=== PATIENT | female | born 1955 | race Caucasian/White ===

== ENCOUNTER 2017-11-12 20:56 | Emergency (ER) | payer OTHER ==
[2017-11-13] MEDS: SOD CHLORIDE 0.9% 1,000 ML IV ×2 (02:04→04:01)
[2017-11-13] MEDS ORDERED: ONDANSETRON 4 MG INJ (02:05)
[2017-11-13] MEDS: PANTOPRAZOLE 40 MG INJ IV (02:07)
[2017-11-13] MEDS: ONDANSETRON INJ 8 MG in DEXTROSE 5% 50 ML IV (02:11)
[2017-11-13 02:36] LABS: ADD MAN DIFF? NO
[2017-11-13 02:38] LABS: ABNORMAL IP MESSAGE 1; BASOPHIL # 0.1 10^3/ul (0.0-0.1); BASOPHILS % 0.8 % (0.0-2.0); EOSINOPHILS # 0.1 10^3/ul (0.0-0.5); EOSINOPHILS % 0.9 % (0.0-7.0); HEMATOCRIT 33.2 % (37.0-47.0); HEMOGLOBIN 10.3 g/dl (12.0-16.0); LYMPHOCYTES # 2.2 10^3/ul (0.8-2.9); LYMPHOCYTES % 14.8 % (15.0-51.0); MEAN CORPUSCULAR HEMOGLOBIN 27.8 pg (29.0-33.0); MEAN CORPUSCULAR VOLUME 89.5 fl (82.0-101.0); MEAN PLATELET VOLUME 9.8 fl (7.4-10.4); MONOCYTE # 1.6 10^3/ul (0.3-0.9); MONOCYTES % 10.4 % (0.0-11.0); NEUTROPHIL # 9.7 10^3/ul (1.6-7.5); NEUTROPHILS % 65.2 % (39.0-77.0); PLATELET COUNT 561 10^3/UL (140-415); RED BLOOD COUNT 3.71 10^6/ul (4.20-5.40); RED CELL DISTRIBUTION WIDTH 15.9 % (11.5-14.5)
[2017-11-13 02:38] LABS: WHITE BLOOD COUNT 14.9 10^3/ul (4.8-10.8)
[2017-11-13 02:39] LABS: POSITIVE DIFF @See below
[2017-11-13 03:00] LABS: ALANINE AMINOTRANSFERASE 23 IU/L (13-69); ALBUMIN 3.3 g/dl (3.3-4.9); ALBUMIN/GLOBULIN RATIO 0.91; ALKALINE PHOSPHATASE 117 IU/L (42-121); ANION GAP 24 (8-16); ASPARTATE AMINO TRANSFERASE 15 IU/L (15-46); BILIRUBIN,INDIRECT 0.1 mg/dl (0-1.1); BILIRUBIN,TOTAL 0.1 mg/dl (0.2-1.3); BLOOD UREA NITROGEN 14 mg/dl (7-20); CALCIUM 9.4 mg/dl (8.4-10.2); CARBON DIOXIDE 21 mmol/L (21-31); CHLORIDE 99 mmol/L (97-110); CREATININE 1.57 mg/dl (0.44-1.00); GLUCOSE 109 mg/dl (70-220); LIPASE 210 U/L (23-300); POTASSIUM 4.6 mmol/L (3.5-5.1); SODIUM 139 mmol/L (135-144); TOTAL PROTEIN 6.9 g/dl (6.1-8.1)
[2017-11-13] MEDS: ONDANSETRON 4 MG INJ IV (04:00)
== END 2017-11-13 05:36 | disposition home or self-care (01) ==
LOC: FTE 20:56
DX: R19.7 Diarrhea, unspecified (principal); E86.0 Dehydration; I10 Essential (primary) hypertension; Z90.49 Acquired absence of other specified parts of digestive tract
CPT/HCPCS: 36415; 76705; 80053; 83690; 85025; 96374; 96375; 99285-25

== ENCOUNTER 2017-12-01 16:23 | Inpatient (IN) | payer OTHER ==
[2017-12-01] MEDS ORDERED: PROPOFOL 200 MG INJ IV (20:00)
[2017-12-01 20:17] LABS: ADD MAN DIFF? NO
[2017-12-01 20:19] LABS: WHITE BLOOD COUNT 15.6 10^3/ul (4.8-10.8)
[2017-12-01 20:19] LABS: BASOPHIL # 0.1 10^3/ul (0.0-0.1); BASOPHILS % 0.8 % (0.0-2.0); EOSINOPHILS # 0.8 10^3/ul (0.0-0.5); EOSINOPHILS % 5.1 % (0.0-7.0); HEMATOCRIT 41.1 % (37.0-47.0); LYMPHOCYTES % 12.8 % (15.0-51.0); MEAN CORPUSCULAR HEMOGLOBIN 27.9 pg (29.0-33.0); MEAN CORPUSCULAR HGB CONC 31.6 g/dl (32.0-37.0); MEAN CORPUSCULAR VOLUME 88.2 fl (82.0-101.0); MEAN PLATELET VOLUME 10.1 fl (7.4-10.4); MONOCYTE # 1.3 10^3/ul (0.3-0.9); MONOCYTES % 8.4 % (0.0-11.0); NEUTROPHIL # 10.8 10^3/ul (1.6-7.5); NEUTROPHILS % 69.4 % (39.0-77.0); PLATELET COUNT 449 10^3/UL (140-415); RED BLOOD COUNT 4.66 10^6/ul (4.20-5.40); RED CELL DISTRIBUTION WIDTH 17.6 % (11.5-14.5)
[2017-12-01] MEDS: SOD CHLORIDE 0.9% 1,000 ML IV ×3 (20:28→23:37)
[2017-12-01] MEDS: morphine 4 MG/ML VIAL IV (20:29)
[2017-12-01] MEDS: ONDANSETRON 4 MG INJ IV (20:29)
[2017-12-01 20:39] LABS: ALANINE AMINOTRANSFERASE 29 IU/L (13-69); ALBUMIN 3.6 g/dl (3.3-4.9); ALBUMIN/GLOBULIN RATIO 0.92; ALKALINE PHOSPHATASE 139 IU/L (42-121); ANION GAP 20 (8-16); ASPARTATE AMINO TRANSFERASE 23 IU/L (15-46); BILIRUBIN,INDIRECT 0.3 mg/dl (0-1.1); BILIRUBIN,TOTAL 0.3 mg/dl (0.2-1.3); BLOOD UREA NITROGEN 10 mg/dl (7-20); CALCIUM 12.7 mg/dl (8.4-10.2); CARBON DIOXIDE 20 mmol/L (21-31); CHLORIDE 95 mmol/L (97-110); CREATININE 1.44 mg/dl (0.44-1.00); GLUCOSE 143 mg/dl (70-220); LIPASE 211 U/L (23-300); SODIUM 131 mmol/L (135-144); TOTAL PROTEIN 7.5 g/dl (6.1-8.1)
[2017-12-01 20:43] LABS: LACTIC ACID 3.4 mmol/L (0.5-2.0)
[2017-12-01 22:19] LABS: ADD UMIC YES; UR AMORPHOUS CRYSTAL FEW /HPF (NONE SEEN); UR ASCORBIC ACID NEGATIVE (NEGATIVE); UR BACTERIA MANY /HPF (NONE SEEN); UR BILIRUBIN (Dip) NEGATIVE (NEGATIVE); UR BLOOD (Dip) NEGATIVE (NEGATIVE); UR CLARITY SLIGHTLY CLOUDY (CLEAR); UR COLOR YELLOW (YELLOW); UR GLUCOSE (Dip) NEGATIVE (NEGATIVE); UR KETONES (Dip) TRACE mg/dL (NEGATIVE); UR LEUKOCYTE ESTERASE (Dip) 1+ Leu/ul (NEGATIVE); UR MUCUS FEW /HPF (NONE SEEN); UR NITRITE (Dip) NEGATIVE (NEGATIVE); UR RBC 1 /HPF (0-5); UR SPECIFIC GRAVITY (Dip) 1.008 (1.003-1.030); UR TOTAL PROTEIN (Dip) NEGATIVE (NEGATIVE); UR UROBILINOGEN (Dip) NEGATIVE (NEGATIVE); UR WBC 1 /HPF (0-5)
[2017-12-01] MEDS ORDERED: ACETAMINOPHEN 325 MG TAB PO (23:30)
[2017-12-01] MEDS ORDERED: ONDANSETRON 4 MG INJ IV (23:30)
[2017-12-01] MEDS: CEFEPIME 2GM/50 ML (PMX) 50 ML IVPB (23:35)
[2017-12-02 00:20] LABS: TROPONIN-I < 0.012 ng/ml (0.00-0.12)
[2017-12-02] MEDS ORDERED: SOD CHLORIDE 0.45% 1,000 ML IV (01:39)
[2017-12-02] MEDS ORDERED: MAGNESIUM HYDROXIDE 30ML CUP PO (02:00)
[2017-12-02] MEDS ORDERED: morphine 2 MG INJ IV (02:00)
[2017-12-02] MEDS ORDERED: hydrALAzine 20 MG INJ IV (02:00)
[2017-12-02] MEDS ORDERED: ALBUTEROL/IPRATROPIUM (NEB) 3 ML AMP HHN (02:00)
[2017-12-02] MEDS ORDERED: NA PHOSPHATE/BIPHOS 133 ML ENEMA PR (02:00)
[2017-12-02] MEDS ORDERED: NITROGLYCERIN (SL) 0.4 MG TAB SL (02:00)
[2017-12-02] MEDS ORDERED: NACL 0.9% 3 ML SYG IV (02:00)
[2017-12-02] MEDS ORDERED: LORAZEPAM 2 MG INJ IV (02:00)
[2017-12-02] MEDS ORDERED: DOCUSATE SODIUM 100 MG CAP PO (02:00)
[2017-12-02 02:40] LABS: LACTIC ACID 1.1 mmol/L (0.5-2.0)
[2017-12-02] MEDS ORDERED: GLUCAGON 1 MG INJ IM (04:00)
[2017-12-02] MEDS ORDERED: DEXTROSE 50% 50 ML SYRINGE IV (04:00)
[2017-12-02] MEDS ORDERED: GLUCOSE GEL 15 GRAM TUBE BUCCAL (04:00)
[2017-12-02] MEDS ORDERED: GLUCOSE GEL 15 GRAM TUBE PO ×2 (04:00)
[2017-12-02] MEDS: INSULIN ASPART [NOVOLOG] 3 ML PEN SC ×5 (05:00→21:00)
[2017-12-02] MEDS: SOD CHLORIDE 0.9% 1,000 ML IV ×2 (05:27→11:49)
[2017-12-02 06:21] LABS: FREE T4 (FREE THYROXINE) 1.57 ng/dl (0.78-2.44)
[2017-12-02] MEDS: PANTOPRAZOLE (EC) 40 MG TAB PO ×2 (09:18→21:28)
[2017-12-02] MEDS: CEFTRIAXONE 1 GM/50 ML (PMX) 50 ML IVPB (09:18)
[2017-12-02] MEDS: HEPARIN 5,000 UNIT/0.5 ML VIAL SC ×2 (09:20→21:36)
[2017-12-02] MEDS: ONDANSETRON 4 MG INJ IV (09:31)
[2017-12-02] MEDS: POLYETHYLENE GLYCOL 17 GM PACKET PO (11:30)
[2017-12-02] MEDS: DEXTROSE 50% 50 ML SYRINGE IV (11:50)
[2017-12-02] MEDS: METOCLOPRAMIDE 10 MG TAB PO ×2 (13:15→22:42)
[2017-12-02] MEDS ORDERED: BARIUM SULFATE 135 ML (E-Z HD) PO (14:37)
[2017-12-02] MEDS ORDERED: VANCOMYCIN IV PER PHARMACY XX (17:30)
[2017-12-02] MEDS: DEXTROSE 5% 1,000 ML IV (17:48)
[2017-12-02] MEDS: VANCOMYCIN 1.75 GM in NS 500 ML IVPB (19:53)
[2017-12-02] MEDS: ATORVASTATIN 10 MG TAB PO (21:28)
[2017-12-03] MEDS: INSULIN ASPART [NOVOLOG] 3 ML PEN SC ×6 (01:00→21:00)
[2017-12-03] MEDS: DEXTROSE 50% 50 ML SYRINGE IV (01:14)
[2017-12-03] MEDS: ACCU-CHEK XX ×2 (02:00→21:18)
[2017-12-03] MEDS: METOCLOPRAMIDE 10 MG TAB PO ×3 (05:13→21:13)
[2017-12-03] MEDS: DEXTROSE 5% 1,000 ML IV ×3 (06:28→21:18)
[2017-12-03 06:39] LABS: ADD MAN DIFF? NO
[2017-12-03 06:52] LABS: BASOPHIL # 0.1 10^3/ul (0.0-0.1); BASOPHILS % 0.5 % (0.0-2.0); EOSINOPHILS # 1.5 10^3/ul (0.0-0.5); EOSINOPHILS % 15.6 % (0.0-7.0); HEMATOCRIT 31.1 % (37.0-47.0); HEMOGLOBIN 9.6 g/dl (12.0-16.0); LYMPHOCYTES # 1.3 10^3/ul (0.8-2.9); LYMPHOCYTES % 13.4 % (15.0-51.0); MEAN CORPUSCULAR HEMOGLOBIN 28.1 pg (29.0-33.0); MEAN CORPUSCULAR HGB CONC 30.9 g/dl (32.0-37.0); MEAN CORPUSCULAR VOLUME 90.9 fl (82.0-101.0); MEAN PLATELET VOLUME 10.8 fl (7.4-10.4); MONOCYTES % 10.4 % (0.0-11.0); NEUTROPHIL # 5.4 10^3/ul (1.6-7.5); NEUTROPHILS % 58.2 % (39.0-77.0); PLATELET COUNT 329 10^3/UL (140-415); RED BLOOD COUNT 3.42 10^6/ul (4.20-5.40)
[2017-12-03 06:52] LABS: WHITE BLOOD COUNT 9.3 10^3/ul (4.8-10.8)
[2017-12-03 07:11] LABS: CHOL/HDL RATIO 4.8 RATIO; HDL CHOLESTEROL 26 mg/dl (35-98); LDL CHOLESTEROL,CALCULATED 55 mg/dl; TRIGLYCERIDES 226 mg/dl (0-149)
[2017-12-03 07:11] LABS: CHOLESTEROL 126 mg/dl (100-200)
[2017-12-03 07:19] LABS: ANION GAP 10 (8-16); BLOOD UREA NITROGEN 8 mg/dl (7-20); CALCIUM 10.7 mg/dl (8.4-10.2); CARBON DIOXIDE 20 mmol/L (21-31); CHLORIDE 106 mmol/L (97-110); CREATININE 1.16 mg/dl (0.44-1.00); GLUCOSE 119 mg/dl (70-220); MAGNESIUM 1.1 mg/dl (1.7-2.5); PHOSPHORUS 2.2 mg/dl (2.5-4.9); POTASSIUM 3.1 mmol/L (3.5-5.1); SODIUM 133 mmol/L (135-144)
[2017-12-03 07:29] LABS: HEMOGLOBIN A1C 5.9 % (0-5.9)
[2017-12-03] MEDS: POLYETHYLENE GLYCOL 17 GM PACKET PO (09:00)
[2017-12-03] MEDS: CEFTRIAXONE 1 GM/50 ML (PMX) 50 ML IVPB (10:46)
[2017-12-03] MEDS: PANTOPRAZOLE (EC) 40 MG TAB PO ×2 (10:46→21:13)
[2017-12-03] MEDS: HEPARIN 5,000 UNIT/0.5 ML VIAL SC ×2 (10:47→21:16)
[2017-12-03] MEDS: MAGNESIUM SULFATE 3 GM in DEXTROSE 5% 100 ML IVPB (12:26)
[2017-12-03] MEDS: POTASSIUM PHOSPHATE 15 MM in SOD CHLORIDE 0.9% 250 ML IVPB (18:03)
[2017-12-03] MEDS: SILVER SULFADIAZINE 1% 25 GM CR TOP (18:23)
[2017-12-03] MEDS: VANCOMYCIN 1 GM 250 ML IVPB (21:11)
[2017-12-03] MEDS: ATORVASTATIN 10 MG TAB PO (21:13)
[2017-12-03] MEDS ORDERED: VANCOMYCIN 750 MG in DEXTROSE 5% 150 ML IVPB (22:00)
[2017-12-04] MEDS: INSULIN ASPART [NOVOLOG] 3 ML PEN SC ×6 (01:00→21:00)
[2017-12-04] MEDS: LEVOTHYROXINE 50 MCG TAB PO (05:15)
[2017-12-04] MEDS: METOCLOPRAMIDE 10 MG TAB PO ×3 (05:15→21:33)
[2017-12-04 06:31] LABS: ADD MAN DIFF? NO
[2017-12-04 06:35] LABS: BASOPHIL # 0.1 10^3/ul (0.0-0.1); BASOPHILS % 0.7 % (0.0-2.0); EOSINOPHILS # 1.5 10^3/ul (0.0-0.5); EOSINOPHILS % 16.2 % (0.0-7.0); HEMATOCRIT 31.4 % (37.0-47.0); HEMOGLOBIN 9.9 g/dl (12.0-16.0); LYMPHOCYTES # 1.8 10^3/ul (0.8-2.9); LYMPHOCYTES % 19.9 % (15.0-51.0); MEAN CORPUSCULAR HEMOGLOBIN 28.4 pg (29.0-33.0); MEAN CORPUSCULAR HGB CONC 31.5 g/dl (32.0-37.0); MEAN CORPUSCULAR VOLUME 90.2 fl (82.0-101.0); MEAN PLATELET VOLUME 10.6 fl (7.4-10.4); MONOCYTE # 1.2 10^3/ul (0.3-0.9); MONOCYTES % 13.3 % (0.0-11.0); NEUTROPHIL # 4.4 10^3/ul (1.6-7.5); NEUTROPHILS % 47.9 % (39.0-77.0); PLATELET COUNT 350 10^3/UL (140-415); RED BLOOD COUNT 3.48 10^6/ul (4.20-5.40); RED CELL DISTRIBUTION WIDTH 18.1 % (11.5-14.5)
[2017-12-04 06:35] LABS: WHITE BLOOD COUNT 9.1 10^3/ul (4.8-10.8)
[2017-12-04 07:27] LABS: ANION GAP 10 (8-16); BLOOD UREA NITROGEN 6 mg/dl (7-20); CALCIUM 11.1 mg/dl (8.4-10.2); CARBON DIOXIDE 20 mmol/L (21-31); CHLORIDE 105 mmol/L (97-110); CREATININE 1.13 mg/dl (0.44-1.00); GLUCOSE 130 mg/dl (70-220); POTASSIUM 3.3 mmol/L (3.5-5.1); SODIUM 132 mmol/L (135-144)
[2017-12-04] MEDS: PANTOPRAZOLE (EC) 40 MG TAB PO ×2 (08:08→21:33)
[2017-12-04] MEDS: POLYETHYLENE GLYCOL 17 GM PACKET PO (08:09)
[2017-12-04] MEDS: SILVER SULFADIAZINE 1% 25 GM CR TOP (08:09)
[2017-12-04] MEDS: DEXTROSE 5% 1,000 ML IV ×2 (08:10→12:24)
[2017-12-04] MEDS: HEPARIN 5,000 UNIT/0.5 ML VIAL SC ×2 (08:17→21:34)
[2017-12-04] MEDS: CEFTRIAXONE 1 GM/50 ML (PMX) 50 ML IVPB (10:05)
[2017-12-04 12:47] LABS: CANCER ANTIGEN 125 18.5 U/ml (0.0-35.0)
[2017-12-04 12:47] LABS: CARCINOEMBRYONIC ANTIGEN 8.8 ng/ml (0.0-5.0)
[2017-12-04 12:57] LABS: CANCER ANTIGEN 19-9 < 1.4 U/ml (0.0-37.0)
[2017-12-04] MEDS: MEROPENEM 1 GM/50ML(PMX) 50 ML IVPB (13:45)
[2017-12-04] MEDS ORDERED: HYDROmorphONE (0.2 MG/ML) 10ML SYG IV (16:30)
[2017-12-04] MEDS ORDERED: ONDANSETRON 4 MG INJ IV (16:30)
[2017-12-04] MEDS: LEVOFLOXACIN 500 MG TAB PO (18:31)
[2017-12-04] MEDS: METOCLOPRAMIDE 10 MG INJ IV (18:32)
[2017-12-04] MEDS: ERTAPENEM SODIUM 1 GM in SOD CHLORIDE 0.9% 100 ML IVPB (18:37)
[2017-12-04] MEDS: PROPOFOL 20 ML (19:06)
[2017-12-04] MEDS: LIDOCAINE 2% (SDV) 5 ML INJ (19:07)
[2017-12-04] MEDS: MIDAZOLAM 1 MG/ML 2 ML INJ (19:07)
[2017-12-04] MEDS: ATORVASTATIN 10 MG TAB PO (21:33)
[2017-12-05] MEDS: METOCLOPRAMIDE 10 MG INJ IV ×4 (00:32→17:44)
[2017-12-05] MEDS: ACCU-CHEK XX (02:00)
[2017-12-05] MEDS: DEXTROSE 5% 1,000 ML IV (03:38)
[2017-12-05] MEDS: LEVOTHYROXINE 50 MCG TAB PO (06:15)
[2017-12-05] MEDS: METOCLOPRAMIDE 10 MG TAB PO ×2 (06:15→13:02)
[2017-12-05] MEDS: LEVOFLOXACIN 500 MG TAB PO (06:15)
[2017-12-05 06:38] LABS: ADD MAN DIFF? NO
[2017-12-05 06:45] LABS: BASOPHIL # 0.1 10^3/ul (0.0-0.1); BASOPHILS % 0.5 % (0.0-2.0); EOSINOPHILS # 1.5 10^3/ul (0.0-0.5); HEMATOCRIT 29.8 % (37.0-47.0); HEMOGLOBIN 9.4 g/dl (12.0-16.0); LYMPHOCYTES # 1.7 10^3/ul (0.8-2.9); MEAN CORPUSCULAR HEMOGLOBIN 28.5 pg (29.0-33.0); MEAN CORPUSCULAR HGB CONC 31.5 g/dl (32.0-37.0); MEAN CORPUSCULAR VOLUME 90.3 fl (82.0-101.0); MEAN PLATELET VOLUME 10.5 fl (7.4-10.4); MONOCYTE # 1.2 10^3/ul (0.3-0.9); MONOCYTES % 13.2 % (0.0-11.0); NEUTROPHIL # 4.5 10^3/ul (1.6-7.5); NEUTROPHILS % 49.4 % (39.0-77.0); PLATELET COUNT 360 10^3/UL (140-415)
[2017-12-05 06:45] LABS: WHITE BLOOD COUNT 9.2 10^3/ul (4.8-10.8)
[2017-12-05 07:21] LABS: ANION GAP 10 (8-16); BLOOD UREA NITROGEN 3 mg/dl (7-20); CALCIUM 11.3 mg/dl (8.4-10.2); CARBON DIOXIDE 20 mmol/L (21-31); CHLORIDE 105 mmol/L (97-110); CREATININE 1.04 mg/dl (0.44-1.00); GLUCOSE 113 mg/dl (70-220); POTASSIUM 3.2 mmol/L (3.5-5.1); SODIUM 132 mmol/L (135-144)
[2017-12-05] MEDS: INSULIN ASPART [NOVOLOG] 3 ML PEN SC ×4 (08:00→21:00)
[2017-12-05] MEDS: POLYETHYLENE GLYCOL 17 GM PACKET PO (08:45)
[2017-12-05] MEDS: PANTOPRAZOLE (EC) 40 MG TAB PO ×2 (08:45→21:39)
[2017-12-05] MEDS: HEPARIN 5,000 UNIT/0.5 ML VIAL SC ×2 (08:49→21:43)
[2017-12-05] MEDS: SILVER SULFADIAZINE 1% 25 GM CR TOP (10:17)
[2017-12-05] MEDS ORDERED: POTASSIUM CHLORIDE 50 ML IVPB (10:30)
[2017-12-05 11:42] LABS: MAGNESIUM 1.6 mg/dl (1.7-2.5)
[2017-12-05 12:10] LABS: PHOSPHORUS 2.4 mg/dl (2.5-4.9)
[2017-12-05] MEDS: POTASSIUM CHLORIDE 20 MEQ POWDER FOR ORAL SOLN PO (12:23)
[2017-12-05] MEDS: SOD CHLORIDE 0.9% 1,000 ML IV (12:24)
[2017-12-05 12:28] LABS: FREE T4 (FREE THYROXINE) 2.14 ng/dl (0.78-2.44)
[2017-12-05] MEDS: POTASSIUM CHLORIDE (SR) 20 MEQ TAB PO (14:54)
[2017-12-05] MEDS: ESCITALOPRAM 10 MG TAB PO (15:14)
[2017-12-05] MEDS: NYSTATIN SUSP 5 ML CUP PO ×3 (15:14→21:39)
[2017-12-05 17:18] LABS: PTH CALCIUM 10.8 mg/dL (8.6-10.4)
[2017-12-05] MEDS: ERTAPENEM SODIUM 1 GM in SOD CHLORIDE 0.9% 100 ML IVPB (17:47)
[2017-12-05 18:48] LABS: ADD UMIC YES; UR ASCORBIC ACID NEGATIVE (NEGATIVE); UR BILIRUBIN (Dip) NEGATIVE (NEGATIVE); UR BLOOD (Dip) 1+ mg/dL (NEGATIVE); UR CLARITY SLIGHTLY CLOUDY (CLEAR); UR COLOR STRAW (YELLOW); UR GLUCOSE (Dip) NEGATIVE (NEGATIVE); UR KETONES (Dip) NEGATIVE (NEGATIVE); UR LEUKOCYTE ESTERASE (Dip) NEGATIVE Leu/ul (NEGATIVE); UR NITRITE (Dip) NEGATIVE (NEGATIVE); UR RBC 2 /HPF (0-5); UR SPECIFIC GRAVITY (Dip) 1.003 (1.003-1.030); UR SQUAMOUS EPITHELIAL CELL FEW /HPF (FEW); UR TOTAL PROTEIN (Dip) NEGATIVE (NEGATIVE); UR UROBILINOGEN (Dip) NEGATIVE (NEGATIVE); UR WBC 4 /HPF (0-5)
[2017-12-05 19:17] LABS: CREATININE,URINE RANDOM 21.27 mg/dl (20-320)
[2017-12-05 19:17] LABS: SODIUM,URINE RANDOM 20 mmol/L (30-90)
[2017-12-05] MEDS: ATORVASTATIN 10 MG TAB PO (21:39)
[2017-12-06] MEDS: METOCLOPRAMIDE 10 MG INJ IV ×4 (00:27→20:54)
[2017-12-06] MEDS: ACCU-CHEK XX (02:00)
[2017-12-06] MEDS: SOD CHLORIDE 0.9% 1,000 ML IV ×2 (02:09→16:35)
[2017-12-06] MEDS: LEVOFLOXACIN 500 MG TAB PO (05:25)
[2017-12-06] MEDS: LEVOTHYROXINE 50 MCG TAB PO (05:25)
[2017-12-06 06:27] LABS: OCCULT BLOOD STOOL NEGATIVE (NEGATIVE)
[2017-12-06 06:34] LABS: ADD MAN DIFF? NO
[2017-12-06 06:42] LABS: BASOPHIL # 0.1 10^3/ul (0.0-0.1); BASOPHILS % 0.6 % (0.0-2.0); EOSINOPHILS # 1.5 10^3/ul (0.0-0.5); EOSINOPHILS % 17.7 % (0.0-7.0); HEMOGLOBIN 9.2 g/dl (12.0-16.0); LYMPHOCYTES # 1.5 10^3/ul (0.8-2.9); LYMPHOCYTES % 17.7 % (15.0-51.0); MEAN CORPUSCULAR HEMOGLOBIN 29.2 pg (29.0-33.0); MEAN CORPUSCULAR HGB CONC 32.9 g/dl (32.0-37.0); MEAN CORPUSCULAR VOLUME 88.9 fl (82.0-101.0); MEAN PLATELET VOLUME 10.4 fl (7.4-10.4); MONOCYTE # 1.2 10^3/ul (0.3-0.9); NEUTROPHILS % 47.2 % (39.0-77.0); PLATELET COUNT 341 10^3/UL (140-415); RED BLOOD COUNT 3.15 10^6/ul (4.20-5.40); RED CELL DISTRIBUTION WIDTH 18.3 % (11.5-14.5)
[2017-12-06 06:42] LABS: WHITE BLOOD COUNT 8.5 10^3/ul (4.8-10.8)
[2017-12-06 06:57] LABS: PTH INTACT 3 pg/mL (14-64)
[2017-12-06 07:18] LABS: ANION GAP 10 (8-16); BLOOD UREA NITROGEN 3 mg/dl (7-20); CARBON DIOXIDE 19 mmol/L (21-31); CHLORIDE 107 mmol/L (97-110); CREATININE 1.09 mg/dl (0.44-1.00); GLUCOSE 82 mg/dl (70-220); POTASSIUM 3.7 mmol/L (3.5-5.1); SODIUM 132 mmol/L (135-144)
[2017-12-06] MEDS: INSULIN ASPART [NOVOLOG] 3 ML PEN SC ×4 (08:00→20:50)
[2017-12-06] MEDS: ESCITALOPRAM 10 MG TAB PO (09:01)
[2017-12-06] MEDS: POLYETHYLENE GLYCOL 17 GM PACKET PO (09:01)
[2017-12-06] MEDS: NYSTATIN SUSP 5 ML CUP PO ×4 (09:01→20:53)
[2017-12-06] MEDS: PANTOPRAZOLE (EC) 40 MG TAB PO ×2 (09:01→20:55)
[2017-12-06] MEDS: HEPARIN 5,000 UNIT/0.5 ML VIAL SC ×2 (09:02→20:55)
[2017-12-06] MEDS: SILVER SULFADIAZINE 1% 25 GM CR TOP (13:49)
[2017-12-06 14:26] LABS: CREATININE, RANDOM URINE 26 mg/dL (20-320); MICROALBUMIN 0.2 mg/dL; MICROALBUMIN/CREATININE RATIO 8 (<30)
[2017-12-06 14:46] LABS: MAGNESIUM 1.4 mg/dl (1.7-2.5)
[2017-12-06 14:46] LABS: PHOSPHORUS 1.9 mg/dl (2.5-4.9)
[2017-12-06] MEDS: ERTAPENEM SODIUM 1 GM in SOD CHLORIDE 0.9% 100 ML IVPB (16:38)
[2017-12-06] MEDS: SUCRALFATE (100 MG/ML) 10ML CUP GTB ×2 (16:38→20:53)
[2017-12-06] MEDS: POTASSIUM PHOSPHATE 20 MEQ in DEXTROSE 5% 250 ML IVPB (17:49)
[2017-12-06] MEDS: ATORVASTATIN 10 MG TAB PO (20:54)
[2017-12-07] MEDS: ACCU-CHEK XX (02:00)
[2017-12-07] MEDS: LEVOFLOXACIN 500 MG TAB PO (05:13)
[2017-12-07] MEDS: LEVOTHYROXINE 50 MCG TAB PO (05:13)
[2017-12-07] MEDS: INSULIN ASPART [NOVOLOG] 3 ML PEN SC ×4 (07:50→21:00)
[2017-12-07] MEDS: METOCLOPRAMIDE 10 MG INJ IV ×3 (08:04→20:37)
[2017-12-07] MEDS: PANTOPRAZOLE (EC) 40 MG TAB PO ×2 (08:08→20:38)
[2017-12-07] MEDS: ESCITALOPRAM 10 MG TAB PO (08:08)
[2017-12-07] MEDS: SUCRALFATE (100 MG/ML) 10ML CUP GTB ×2 (08:08→09:00)
[2017-12-07] MEDS: NYSTATIN SUSP 5 ML CUP PO ×4 (08:11→20:58)
[2017-12-07] MEDS: POLYETHYLENE GLYCOL 17 GM PACKET PO ×2 (08:12→09:00)
[2017-12-07] MEDS: SILVER SULFADIAZINE 1% 25 GM CR TOP (08:12)
[2017-12-07] MEDS: HEPARIN 5,000 UNIT/0.5 ML VIAL SC ×2 (08:14→20:41)
[2017-12-07 12:04] LABS: ADD MAN DIFF? NO
[2017-12-07 12:11] LABS: WHITE BLOOD COUNT 8.6 10^3/ul (4.8-10.8)
[2017-12-07 12:11] LABS: BASOPHILS % 0.5 % (0.0-2.0); EOSINOPHILS # 1.2 10^3/ul (0.0-0.5); EOSINOPHILS % 13.9 % (0.0-7.0); HEMATOCRIT 25.6 % (37.0-47.0); HEMOGLOBIN 8.2 g/dl (12.0-16.0); LYMPHOCYTES # 1.6 10^3/ul (0.8-2.9); LYMPHOCYTES % 18.6 % (15.0-51.0); MEAN CORPUSCULAR HEMOGLOBIN 28.8 pg (29.0-33.0); MEAN CORPUSCULAR VOLUME 89.8 fl (82.0-101.0); MEAN PLATELET VOLUME 10.2 fl (7.4-10.4); MONOCYTE # 1.1 10^3/ul (0.3-0.9); MONOCYTES % 12.8 % (0.0-11.0); NEUTROPHIL # 4.5 10^3/ul (1.6-7.5); NEUTROPHILS % 51.9 % (39.0-77.0); PLATELET COUNT 315 10^3/UL (140-415); RED BLOOD COUNT 2.85 10^6/ul (4.20-5.40); RED CELL DISTRIBUTION WIDTH 18.6 % (11.5-14.5)
[2017-12-07 12:31] LABS: ANION GAP 7 (8-16); BLOOD UREA NITROGEN 3 mg/dl (7-20); CALCIUM 10.6 mg/dl (8.4-10.2); CARBON DIOXIDE 21 mmol/L (21-31); CHLORIDE 107 mmol/L (97-110); CREATININE 1.06 mg/dl (0.44-1.00); GLUCOSE 90 mg/dl (70-220); POTASSIUM 3.8 mmol/L (3.5-5.1); SODIUM 131 mmol/L (135-144)
[2017-12-07] MEDS: SUCRALFATE 1 GM TAB PO ×2 (12:40→17:28)
[2017-12-07] MEDS: SOD CHLORIDE 0.9% 1,000 ML IV ×2 (12:41→17:26)
[2017-12-07] MEDS: ERTAPENEM SODIUM 1 GM in SOD CHLORIDE 0.9% 100 ML IVPB (16:10)
[2017-12-07] MEDS: ATORVASTATIN 10 MG TAB PO (20:38)
[2017-12-08] MEDS: SUCRALFATE 1 GM TAB PO ×4 (00:24→17:57)
[2017-12-08] MEDS: ACCU-CHEK XX (02:00)
[2017-12-08] MEDS: LEVOFLOXACIN 500 MG TAB PO (05:35)
[2017-12-08] MEDS: LEVOTHYROXINE 50 MCG TAB PO (05:36)
[2017-12-08 06:15] LABS: ADD MAN DIFF? NO
[2017-12-08 06:21] LABS: BASOPHIL # 0.1 10^3/ul (0.0-0.1); BASOPHILS % 0.8 % (0.0-2.0); EOSINOPHILS # 1.5 10^3/ul (0.0-0.5); EOSINOPHILS % 16.7 % (0.0-7.0); HEMATOCRIT 29.6 % (37.0-47.0); HEMOGLOBIN 9.3 g/dl (12.0-16.0); LYMPHOCYTES # 2.4 10^3/ul (0.8-2.9); LYMPHOCYTES % 25.5 % (15.0-51.0); MEAN CORPUSCULAR HEMOGLOBIN 28.5 pg (29.0-33.0); MEAN CORPUSCULAR HGB CONC 31.4 g/dl (32.0-37.0); MEAN CORPUSCULAR VOLUME 90.8 fl (82.0-101.0); MEAN PLATELET VOLUME 10.6 fl (7.4-10.4); MONOCYTE # 1.2 10^3/ul (0.3-0.9); MONOCYTES % 12.9 % (0.0-11.0); NEUTROPHIL # 3.8 10^3/ul (1.6-7.5); NEUTROPHILS % 41.3 % (39.0-77.0); PLATELET COUNT 385 10^3/UL (140-415); RED BLOOD COUNT 3.26 10^6/ul (4.20-5.40); RED CELL DISTRIBUTION WIDTH 18.6 % (11.5-14.5)
[2017-12-08 06:21] LABS: WHITE BLOOD COUNT 9.2 10^3/ul (4.8-10.8)
[2017-12-08 07:40] LABS: ANION GAP 11 (8-16)
[2017-12-08 07:56] LABS: BLOOD UREA NITROGEN 4 mg/dl (7-20); CALCIUM 10.4 mg/dl (8.4-10.2); CARBON DIOXIDE 19 mmol/L (21-31); CHLORIDE 109 mmol/L (97-110); CREATININE 1.03 mg/dl (0.44-1.00); GLUCOSE 73 mg/dl (70-220); SODIUM 133 mmol/L (135-144)
[2017-12-08] MEDS: INSULIN ASPART [NOVOLOG] 3 ML PEN SC ×4 (08:00→20:30)
[2017-12-08] MEDS: SOD CHLORIDE 0.9% 1,000 ML IV ×2 (08:41→13:20)
[2017-12-08] MEDS: NYSTATIN SUSP 5 ML CUP PO ×4 (09:00→20:28)
[2017-12-08] MEDS: POLYETHYLENE GLYCOL 17 GM PACKET PO (09:00)
[2017-12-08] MEDS: PANTOPRAZOLE (EC) 40 MG TAB PO ×2 (10:18→20:24)
[2017-12-08] MEDS: METOCLOPRAMIDE 10 MG INJ IV ×3 (10:19→20:18)
[2017-12-08] MEDS: ESCITALOPRAM 10 MG TAB PO (10:19)
[2017-12-08] MEDS: SILVER SULFADIAZINE 1% 25 GM CR TOP (10:25)
[2017-12-08] MEDS: HEPARIN 5,000 UNIT/0.5 ML VIAL SC ×2 (10:25→20:22)
[2017-12-08] MEDS: ERTAPENEM SODIUM 1 GM in SOD CHLORIDE 0.9% 100 ML IVPB (17:57)
[2017-12-08] MEDS: ATORVASTATIN 10 MG TAB PO (20:17)
[2017-12-09] MEDS: INSULIN ASPART [NOVOLOG] 3 ML PEN SC ×8 (01:00→17:45)
[2017-12-09] MEDS: ACCU-CHEK XX ×2 (01:15)
[2017-12-09] MEDS: DEXTROSE 50% 50 ML SYRINGE IV ×2 (05:11→08:22)
[2017-12-09] MEDS: SUCRALFATE 1 GM TAB PO ×4 (05:23→17:33)
[2017-12-09] MEDS: LEVOFLOXACIN 500 MG TAB PO (05:23)
[2017-12-09] MEDS: LEVOTHYROXINE 50 MCG TAB PO (05:23)
[2017-12-09] MEDS: DEXTROSE 5%-0.45% NACL 1,000 ML IV (05:31)
[2017-12-09 06:31] LABS: ADD MAN DIFF? NO
[2017-12-09 06:33] LABS: WHITE BLOOD COUNT 8.8 10^3/ul (4.8-10.8)
[2017-12-09 06:33] LABS: BASOPHILS % 0.5 % (0.0-2.0); EOSINOPHILS # 1.6 10^3/ul (0.0-0.5); EOSINOPHILS % 17.9 % (0.0-7.0); HEMOGLOBIN 9.1 g/dl (12.0-16.0); LYMPHOCYTES # 1.9 10^3/ul (0.8-2.9); LYMPHOCYTES % 21.4 % (15.0-51.0); MEAN CORPUSCULAR HEMOGLOBIN 28.5 pg (29.0-33.0); MEAN CORPUSCULAR HGB CONC 31.4 g/dl (32.0-37.0); MEAN CORPUSCULAR VOLUME 90.9 fl (82.0-101.0); MEAN PLATELET VOLUME 10.3 fl (7.4-10.4); MONOCYTE # 1.1 10^3/ul (0.3-0.9); MONOCYTES % 12.8 % (0.0-11.0); NEUTROPHILS % 45.1 % (39.0-77.0); PLATELET COUNT 370 10^3/UL (140-415); RED BLOOD COUNT 3.19 10^6/ul (4.20-5.40); RED CELL DISTRIBUTION WIDTH 18.6 % (11.5-14.5)
[2017-12-09 07:08] LABS: ANION GAP 11 (8-16); BLOOD UREA NITROGEN 4 mg/dl (7-20); CALCIUM 9.8 mg/dl (8.4-10.2); CARBON DIOXIDE 20 mmol/L (21-31); CHLORIDE 108 mmol/L (97-110); CREATININE 0.98 mg/dl (0.44-1.00); GLUCOSE 104 mg/dl (70-220); POTASSIUM 3.6 mmol/L (3.5-5.1); SODIUM 135 mmol/L (135-144)
[2017-12-09] MEDS: POLYETHYLENE GLYCOL 17 GM PACKET PO (08:25)
[2017-12-09] MEDS: ESCITALOPRAM 10 MG TAB PO (08:25)
[2017-12-09] MEDS: NYSTATIN SUSP 5 ML CUP PO ×4 (08:25→21:00)
[2017-12-09] MEDS: PANTOPRAZOLE (EC) 40 MG TAB PO ×2 (08:25→21:24)
[2017-12-09] MEDS: HEPARIN 5,000 UNIT/0.5 ML VIAL SC ×3 (08:32→21:25)
[2017-12-09] MEDS: METOCLOPRAMIDE 10 MG INJ IV ×3 (08:35→21:24)
[2017-12-09] MEDS: SILVER SULFADIAZINE 1% 25 GM CR TOP (10:07)
[2017-12-09 10:21] LABS: PTH INTACT 2 pg/mL (14-64)
[2017-12-09] MEDS: ERTAPENEM SODIUM 1 GM in SOD CHLORIDE 0.9% 100 ML IVPB (17:33)
[2017-12-09] MEDS ORDERED: FENTAnyl 50 MCG/ML VIAL (19:20)
[2017-12-09] MEDS ORDERED: PROPOFOL 20 ML (19:20)
[2017-12-09] MEDS: ATORVASTATIN 10 MG TAB PO (21:24)
[2017-12-10] MEDS: DEXTROSE 5%-0.45% NACL 1,000 ML IV (00:06)
[2017-12-10] MEDS: SUCRALFATE 1 GM TAB PO ×3 (00:06→12:57)
[2017-12-10] MEDS: INSULIN ASPART [NOVOLOG] 3 ML PEN SC ×6 (01:00→20:37)
[2017-12-10] MEDS: ACCU-CHEK XX ×2 (02:00)
[2017-12-10] MEDS: LEVOTHYROXINE 50 MCG TAB PO (05:16)
[2017-12-10] MEDS: LEVOFLOXACIN 500 MG TAB PO (05:16)
[2017-12-10] MEDS: ONDANSETRON 4 MG INJ IV (05:57)
[2017-12-10] MEDS: POLYETHYLENE GLYCOL 17 GM PACKET PO (08:52)
[2017-12-10] MEDS: ESCITALOPRAM 10 MG TAB PO (08:53)
[2017-12-10] MEDS: METOCLOPRAMIDE 10 MG INJ IV ×3 (08:53→20:38)
[2017-12-10] MEDS: PANTOPRAZOLE (EC) 40 MG TAB PO (08:53)
[2017-12-10] MEDS: HEPARIN 5,000 UNIT/0.5 ML VIAL SC ×2 (08:54→20:37)
[2017-12-10] MEDS: NYSTATIN SUSP 5 ML CUP PO ×4 (09:00→20:37)
[2017-12-10] MEDS: SILVER SULFADIAZINE 1% 25 GM CR TOP (09:01)
[2017-12-10] MEDS ORDERED: LACTULOSE 30ML CUP GTB (17:30)
[2017-12-10] MEDS: SUCRALFATE (100 MG/ML) 10ML CUP GTB ×2 (17:31→20:38)
[2017-12-10] MEDS: ERTAPENEM SODIUM 1 GM in SOD CHLORIDE 0.9% 100 ML IVPB (17:31)
[2017-12-10] MEDS: ATORVASTATIN 10 MG TAB PO (20:38)
[2017-12-10] MEDS: PANTOPRAZOLE 40 MG INJ IV (20:39)
[2017-12-11] MEDS: INSULIN ASPART [NOVOLOG] 3 ML PEN SC ×6 (01:00→21:00)
[2017-12-11] MEDS: ACCU-CHEK XX (02:00)
[2017-12-11] MEDS: LEVOFLOXACIN 500 MG TAB PO (05:36)
[2017-12-11] MEDS: LEVOTHYROXINE 50 MCG TAB PO (05:36)
[2017-12-11] MEDS: PANTOPRAZOLE 40 MG INJ IV ×2 (05:36→17:41)
[2017-12-11 05:55] LABS: ADD MAN DIFF? NO
[2017-12-11 05:57] LABS: BASOPHILS % 0.4 % (0.0-2.0); EOSINOPHILS # 1.4 10^3/ul (0.0-0.5); EOSINOPHILS % 14.7 % (0.0-7.0); HEMATOCRIT 28.1 % (37.0-47.0); HEMOGLOBIN 8.8 g/dl (12.0-16.0); LYMPHOCYTES # 1.7 10^3/ul (0.8-2.9); LYMPHOCYTES % 17.9 % (15.0-51.0); MEAN CORPUSCULAR HEMOGLOBIN 28.3 pg (29.0-33.0); MEAN CORPUSCULAR HGB CONC 31.3 g/dl (32.0-37.0); MEAN CORPUSCULAR VOLUME 90.4 fl (82.0-101.0); MEAN PLATELET VOLUME 9.7 fl (7.4-10.4); MONOCYTE # 1.3 10^3/ul (0.3-0.9); MONOCYTES % 13.1 % (0.0-11.0); NEUTROPHILS % 51.9 % (39.0-77.0); PLATELET COUNT 350 10^3/UL (140-415); RED BLOOD COUNT 3.11 10^6/ul (4.20-5.40); RED CELL DISTRIBUTION WIDTH 18.6 % (11.5-14.5)
[2017-12-11 05:57] LABS: WHITE BLOOD COUNT 9.6 10^3/ul (4.8-10.8)
[2017-12-11 07:06] LABS: ANION GAP 9 (8-16); BLOOD UREA NITROGEN 8 mg/dl (7-20); CALCIUM 9.8 mg/dl (8.4-10.2); CARBON DIOXIDE 21 mmol/L (21-31); CHLORIDE 107 mmol/L (97-110); GLUCOSE 104 mg/dl (70-220); MAGNESIUM 1.2 mg/dl (1.7-2.5); PHOSPHORUS 1.9 mg/dl (2.5-4.9); POTASSIUM 3.8 mmol/L (3.5-5.1); SODIUM 133 mmol/L (135-144)
[2017-12-11] MEDS: NYSTATIN SUSP 5 ML CUP PO ×6 (09:00→21:00)
[2017-12-11] MEDS: SILVER SULFADIAZINE 1% 25 GM CR TOP (09:00)
[2017-12-11] MEDS: SUCRALFATE (100 MG/ML) 10ML CUP GTB ×4 (09:10→21:17)
[2017-12-11] MEDS: POLYETHYLENE GLYCOL 17 GM PACKET PO (09:10)
[2017-12-11] MEDS: ESCITALOPRAM 10 MG TAB PO (09:11)
[2017-12-11] MEDS: METOCLOPRAMIDE 10 MG INJ IV ×3 (09:13→21:17)
[2017-12-11] MEDS: HEPARIN 5,000 UNIT/0.5 ML VIAL SC ×2 (09:14→21:19)
[2017-12-11] MEDS: ACETAMINOPHEN 325 MG TAB PO (09:21)
[2017-12-11] MEDS: MAGNESIUM SULFATE 2 GM/50 ML 50 ML IVPB (11:07)
[2017-12-11] MEDS: POTASSIUM PHOSPHATE 15 MM in SOD CHLORIDE 0.9% 250 ML IVPB (13:22)
[2017-12-11] MEDS: ATORVASTATIN 10 MG TAB PO (21:18)
[2017-12-12] MEDS: INSULIN ASPART [NOVOLOG] 3 ML PEN SC ×6 (01:00→21:00)
[2017-12-12] MEDS: ACCU-CHEK XX (01:34)
[2017-12-12] MEDS: LEVOFLOXACIN 500 MG TAB PO (05:26)
[2017-12-12] MEDS: PANTOPRAZOLE 40 MG INJ IV ×2 (05:26→18:06)
[2017-12-12] MEDS: LEVOTHYROXINE 50 MCG TAB PO (05:26)
[2017-12-12 06:15] LABS: ADD MAN DIFF? NO
[2017-12-12 06:22] LABS: BASOPHIL # 0.1 10^3/ul (0.0-0.1); BASOPHILS % 0.5 % (0.0-2.0); EOSINOPHILS # 1.5 10^3/ul (0.0-0.5); EOSINOPHILS % 14.6 % (0.0-7.0); HEMATOCRIT 28.3 % (37.0-47.0); HEMOGLOBIN 8.9 g/dl (12.0-16.0); LYMPHOCYTES # 1.7 10^3/ul (0.8-2.9); LYMPHOCYTES % 16.8 % (15.0-51.0); MEAN CORPUSCULAR HEMOGLOBIN 28.3 pg (29.0-33.0); MEAN CORPUSCULAR HGB CONC 31.4 g/dl (32.0-37.0); MEAN CORPUSCULAR VOLUME 89.8 fl (82.0-101.0); MEAN PLATELET VOLUME 9.8 fl (7.4-10.4); MONOCYTE # 1.2 10^3/ul (0.3-0.9); MONOCYTES % 11.5 % (0.0-11.0); NEUTROPHIL # 5.5 10^3/ul (1.6-7.5); NEUTROPHILS % 54.3 % (39.0-77.0); NUCLEATED RED BLOOD CELLS% 0.3 /100WBC (0.0-0.0); PLATELET COUNT 356 10^3/UL (140-415); RED BLOOD COUNT 3.15 10^6/ul (4.20-5.40); RED CELL DISTRIBUTION WIDTH 18.6 % (11.5-14.5)
[2017-12-12 06:22] LABS: WHITE BLOOD COUNT 10.1 10^3/ul (4.8-10.8)
[2017-12-12 06:48] LABS: ANION GAP 11 (8-16); BLOOD UREA NITROGEN 11 mg/dl (7-20); CALCIUM 9.5 mg/dl (8.4-10.2); CARBON DIOXIDE 22 mmol/L (21-31); CHLORIDE 105 mmol/L (97-110); GLUCOSE 116 mg/dl (70-220); MAGNESIUM 1.6 mg/dl (1.7-2.5); PHOSPHORUS 1.8 mg/dl (2.5-4.9); POTASSIUM 4.2 mmol/L (3.5-5.1); SODIUM 134 mmol/L (135-144)
[2017-12-12] MEDS: NYSTATIN SUSP 5 ML CUP PO ×4 (09:00→21:00)
[2017-12-12] MEDS: SUCRALFATE (100 MG/ML) 10ML CUP GTB ×4 (10:35→21:01)
[2017-12-12] MEDS: METOCLOPRAMIDE 10 MG INJ IV ×3 (10:35→21:02)
[2017-12-12] MEDS: ESCITALOPRAM 10 MG TAB PO (10:36)
[2017-12-12] MEDS: POLYETHYLENE GLYCOL 17 GM PACKET PO (10:36)
[2017-12-12] MEDS: SILVER SULFADIAZINE 1% 25 GM CR TOP (10:37)
[2017-12-12] MEDS: MAGNESIUM SULFATE 2 GM/50 ML 50 ML IVPB (10:37)
[2017-12-12] MEDS: HEPARIN 5,000 UNIT/0.5 ML VIAL SC ×2 (10:40→21:03)
[2017-12-12] MEDS: HYDROCODONE/APAP (5/325) TAB PO ×2 (12:37→18:30)
[2017-12-12] MEDS: POTASSIUM PHOSPHATE 40 MEQ in SOD CHLORIDE 0.9% 250 ML IVPB (15:24)
[2017-12-12] MEDS ORDERED: MAGNESIUM SULFATE 2 GM/50 ML 50 ML IVPB (15:30)
[2017-12-12] MEDS: ATORVASTATIN 10 MG TAB PO (21:02)
[2017-12-13] MEDS: INSULIN ASPART [NOVOLOG] 3 ML PEN SC ×6 (01:00→20:29)
[2017-12-13] MEDS: ACCU-CHEK XX (01:21)
[2017-12-13] MEDS: PANTOPRAZOLE 40 MG INJ IV ×2 (05:45→17:29)
[2017-12-13] MEDS: LEVOFLOXACIN 500 MG TAB PO (05:45)
[2017-12-13] MEDS: LEVOTHYROXINE 50 MCG TAB PO (05:45)
[2017-12-13 06:06] LABS: ADD MAN DIFF? NO
[2017-12-13 06:16] LABS: BASOPHIL # 0.1 10^3/ul (0.0-0.1); BASOPHILS % 0.5 % (0.0-2.0); EOSINOPHILS # 1.3 10^3/ul (0.0-0.5); EOSINOPHILS % 12.3 % (0.0-7.0); HEMATOCRIT 26.8 % (37.0-47.0); HEMOGLOBIN 8.5 g/dl (12.0-16.0); LYMPHOCYTES # 1.6 10^3/ul (0.8-2.9); MEAN CORPUSCULAR HEMOGLOBIN 28.2 pg (29.0-33.0); MEAN CORPUSCULAR HGB CONC 31.7 g/dl (32.0-37.0); MEAN PLATELET VOLUME 9.8 fl (7.4-10.4); MONOCYTE # 1.4 10^3/ul (0.3-0.9); MONOCYTES % 13.7 % (0.0-11.0); NEUTROPHIL # 5.5 10^3/ul (1.6-7.5); NEUTROPHILS % 54.2 % (39.0-77.0); NUCLEATED RED BLOOD CELLS% 0.2 /100WBC (0.0-0.0); PLATELET COUNT 334 10^3/UL (140-415); RED BLOOD COUNT 3.01 10^6/ul (4.20-5.40); RED CELL DISTRIBUTION WIDTH 18.8 % (11.5-14.5)
[2017-12-13 06:16] LABS: WHITE BLOOD COUNT 10.2 10^3/ul (4.8-10.8)
[2017-12-13 06:51] LABS: ANION GAP 9 (8-16); BLOOD UREA NITROGEN 15 mg/dl (7-20); CALCIUM 8.5 mg/dl (8.4-10.2); CARBON DIOXIDE 24 mmol/L (21-31); CHLORIDE 104 mmol/L (97-110); CREATININE 0.95 mg/dl (0.44-1.00); GLUCOSE 115 mg/dl (70-220); MAGNESIUM 1.9 mg/dl (1.7-2.5); PHOSPHORUS 2.6 mg/dl (2.5-4.9); POTASSIUM 4.7 mmol/L (3.5-5.1); SODIUM 132 mmol/L (135-144)
[2017-12-13] MEDS: SUCRALFATE (100 MG/ML) 10ML CUP GTB ×4 (08:45→20:22)
[2017-12-13] MEDS: HEPARIN 5,000 UNIT/0.5 ML VIAL SC ×2 (08:46→20:24)
[2017-12-13] MEDS: ESCITALOPRAM 10 MG TAB PO (08:46)
[2017-12-13] MEDS: METOCLOPRAMIDE 10 MG INJ IV ×3 (08:47→20:22)
[2017-12-13] MEDS: NYSTATIN SUSP 5 ML CUP PO ×5 (08:47→20:23)
[2017-12-13] MEDS: POLYETHYLENE GLYCOL 17 GM PACKET PO ×2 (08:47→09:00)
[2017-12-13] MEDS: SILVER SULFADIAZINE 1% 25 GM CR TOP (09:07)
[2017-12-13] MEDS: HYDROCODONE/APAP (5/325) TAB PO (17:29)
[2017-12-13] MEDS: ATORVASTATIN 10 MG TAB PO (20:22)
[2017-12-14] MEDS: INSULIN ASPART [NOVOLOG] 3 ML PEN SC ×6 (00:57→21:39)
[2017-12-14] MEDS: ACCU-CHEK XX (01:28)
[2017-12-14] MEDS: LEVOTHYROXINE 50 MCG TAB PO (05:30)
[2017-12-14] MEDS: LEVOFLOXACIN 500 MG TAB PO (05:30)
[2017-12-14] MEDS: PANTOPRAZOLE 40 MG INJ IV ×2 (05:30→17:31)
[2017-12-14 06:23] LABS: ADD MAN DIFF? NO
[2017-12-14 06:37] LABS: BASOPHIL # 0.1 10^3/ul (0.0-0.1); BASOPHILS % 0.6 % (0.0-2.0); EOSINOPHILS # 1.3 10^3/ul (0.0-0.5); EOSINOPHILS % 12.4 % (0.0-7.0); HEMATOCRIT 27.1 % (37.0-47.0); HEMOGLOBIN 8.8 g/dl (12.0-16.0); LYMPHOCYTES # 1.9 10^3/ul (0.8-2.9); LYMPHOCYTES % 18.4 % (15.0-51.0); MEAN CORPUSCULAR HEMOGLOBIN 28.9 pg (29.0-33.0); MEAN CORPUSCULAR HGB CONC 32.5 g/dl (32.0-37.0); MEAN CORPUSCULAR VOLUME 89.1 fl (82.0-101.0); MEAN PLATELET VOLUME 10.4 fl (7.4-10.4); MONOCYTE # 1.2 10^3/ul (0.3-0.9); MONOCYTES % 11.8 % (0.0-11.0); NEUTROPHIL # 5.5 10^3/ul (1.6-7.5); NEUTROPHILS % 52.9 % (39.0-77.0); NUCLEATED RED BLOOD CELLS% 0.2 /100WBC (0.0-0.0); PLATELET COUNT 338 10^3/UL (140-415); RED BLOOD COUNT 3.04 10^6/ul (4.20-5.40); RED CELL DISTRIBUTION WIDTH 18.9 % (11.5-14.5)
[2017-12-14 06:37] LABS: WHITE BLOOD COUNT 10.4 10^3/ul (4.8-10.8)
[2017-12-14 06:59] LABS: ANION GAP 9 (8-16); BLOOD UREA NITROGEN 20 mg/dl (7-20); CALCIUM 8.4 mg/dl (8.4-10.2); CARBON DIOXIDE 26 mmol/L (21-31); CHLORIDE 103 mmol/L (97-110); CREATININE 0.84 mg/dl (0.44-1.00); GLUCOSE 106 mg/dl (70-220); SODIUM 133 mmol/L (135-144)
[2017-12-14] MEDS: POLYETHYLENE GLYCOL 17 GM PACKET PO (09:00)
[2017-12-14] MEDS: SILVER SULFADIAZINE 1% 25 GM CR TOP ×2 (09:00→13:54)
[2017-12-14] MEDS: NYSTATIN SUSP 5 ML CUP PO ×5 (09:00→21:43)
[2017-12-14] MEDS: SUCRALFATE (100 MG/ML) 10ML CUP GTB ×4 (09:17→21:32)
[2017-12-14] MEDS: METOCLOPRAMIDE 10 MG INJ IV ×3 (09:17→21:43)
[2017-12-14] MEDS: ESCITALOPRAM 10 MG TAB PO (09:17)
[2017-12-14] MEDS: HEPARIN 5,000 UNIT/0.5 ML VIAL SC ×2 (09:18→21:38)
[2017-12-14] MEDS: HYDROCODONE/APAP (5/325) TAB PO (11:47)
[2017-12-14 13:20] LABS: URIC ACID 5.9 mg/dl (3.1-7.9)
[2017-12-14] MEDS: METHYLPREDNISOLONE 40 MG INJ IV (13:51)
[2017-12-14] MEDS: ATORVASTATIN 10 MG TAB PO (21:34)
[2017-12-15] MEDS: INSULIN ASPART [NOVOLOG] 3 ML PEN SC ×7 (01:03→21:00)
[2017-12-15] MEDS: ACCU-CHEK XX (01:14)
[2017-12-15 05:17] LABS: ADD MAN DIFF? NO
[2017-12-15 05:22] LABS: WHITE BLOOD COUNT 9.4 10^3/ul (4.8-10.8)
[2017-12-15 05:22] LABS: ABNORMAL IP MESSAGE 1; BASOPHILS % 0.2 % (0.0-2.0); EOSINOPHILS % 0.1 % (0.0-7.0); HEMATOCRIT 26.1 % (37.0-47.0); HEMOGLOBIN 8.5 g/dl (12.0-16.0); LYMPHOCYTES # 1.4 10^3/ul (0.8-2.9); LYMPHOCYTES % 14.8 % (15.0-51.0); MEAN CORPUSCULAR HEMOGLOBIN 28.7 pg (29.0-33.0); MEAN CORPUSCULAR HGB CONC 32.6 g/dl (32.0-37.0); MEAN CORPUSCULAR VOLUME 88.2 fl (82.0-101.0); MEAN PLATELET VOLUME 10.2 fl (7.4-10.4); MONOCYTE # 0.4 10^3/ul (0.3-0.9); MONOCYTES % 3.9 % (0.0-11.0); NEUTROPHIL # 7.1 10^3/ul (1.6-7.5); NEUTROPHILS % 75.6 % (39.0-77.0); NUCLEATED RED BLOOD CELLS% 0.2 /100WBC (0.0-0.0); PLATELET COUNT 356 10^3/UL (140-415); RED BLOOD COUNT 2.96 10^6/ul (4.20-5.40); RED CELL DISTRIBUTION WIDTH 18.8 % (11.5-14.5)
[2017-12-15] MEDS: LEVOTHYROXINE 50 MCG TAB PO (05:38)
[2017-12-15] MEDS: PANTOPRAZOLE 40 MG INJ IV ×2 (05:38→17:50)
[2017-12-15] MEDS: LEVOFLOXACIN 500 MG TAB PO (05:39)
[2017-12-15 05:48] LABS: ANION GAP 15 (8-16); BLOOD UREA NITROGEN 24 mg/dl (7-20); CALCIUM 8.2 mg/dl (8.4-10.2); CARBON DIOXIDE 27 mmol/L (21-31); CHLORIDE 99 mmol/L (97-110); GLUCOSE 218 mg/dl (70-220); MAGNESIUM 1.7 mg/dl (1.7-2.5); POTASSIUM 5.3 mmol/L (3.5-5.1); SODIUM 136 mmol/L (135-144)
[2017-12-15 06:14] LABS: POSITIVE DIFF @See below
[2017-12-15] MEDS: HEPARIN 5,000 UNIT/0.5 ML VIAL SC ×2 (09:38→20:53)
[2017-12-15] MEDS: SUCRALFATE (100 MG/ML) 10ML CUP GTB ×4 (09:39→20:54)
[2017-12-15] MEDS: NEUTRA-PHOS 250 MG PACKET GTB ×2 (09:39→20:53)
[2017-12-15] MEDS: METOCLOPRAMIDE 10 MG INJ IV ×3 (09:40→20:54)
[2017-12-15] MEDS: NYSTATIN SUSP 5 ML CUP PO ×4 (09:42→21:02)
[2017-12-15] MEDS: POLYETHYLENE GLYCOL 17 GM PACKET PO (09:42)
[2017-12-15] MEDS: ESCITALOPRAM 10 MG TAB PO (09:42)
[2017-12-15] MEDS: SILVER SULFADIAZINE 1% 25 GM CR TOP (09:43)
[2017-12-15 11:19] LABS: POTASSIUM 5.1 mmol/L (3.5-5.1)
[2017-12-15] MEDS: ATORVASTATIN 10 MG TAB PO (20:53)
[2017-12-16] MEDS: INSULIN ASPART [NOVOLOG] 3 ML PEN SC ×5 (00:34→17:00)
[2017-12-16] MEDS: ACCU-CHEK XX (02:00)
[2017-12-16] MEDS: PANTOPRAZOLE 40 MG INJ IV ×2 (05:21→17:39)
[2017-12-16] MEDS: LEVOTHYROXINE 50 MCG TAB PO (05:22)
[2017-12-16] MEDS: LEVOFLOXACIN 500 MG TAB PO (05:22)
[2017-12-16 06:16] LABS: ANION GAP 10 (8-16); BLOOD UREA NITROGEN 30 mg/dl (7-20); CALCIUM 8.4 mg/dl (8.4-10.2); CARBON DIOXIDE 31 mmol/L (21-31); CHLORIDE 100 mmol/L (97-110); CREATININE 0.92 mg/dl (0.44-1.00); GLUCOSE 137 mg/dl (70-220); MAGNESIUM 1.7 mg/dl (1.7-2.5); PHOSPHORUS 2.1 mg/dl (2.5-4.9); POTASSIUM 4.9 mmol/L (3.5-5.1); SODIUM 136 mmol/L (135-144)
[2017-12-16] MEDS: SUCRALFATE (100 MG/ML) 10ML CUP GTB ×4 (08:59→21:06)
[2017-12-16] MEDS: METOCLOPRAMIDE 10 MG INJ IV ×3 (08:59→21:07)
[2017-12-16] MEDS: NYSTATIN SUSP 5 ML CUP PO ×4 (08:59→21:00)
[2017-12-16] MEDS: ESCITALOPRAM 10 MG TAB PO (09:00)
[2017-12-16] MEDS: NEUTRA-PHOS 250 MG PACKET GTB ×2 (09:00→21:07)
[2017-12-16] MEDS: POLYETHYLENE GLYCOL 17 GM PACKET PO (09:02)
[2017-12-16] MEDS: HEPARIN 5,000 UNIT/0.5 ML VIAL SC ×2 (09:04→21:21)
[2017-12-16] MEDS: SILVER SULFADIAZINE 1% 25 GM CR TOP (09:05)
[2017-12-16] MEDS: ATORVASTATIN 10 MG TAB PO (21:06)
[2017-12-17] MEDS: ACCU-CHEK XX (02:00)
[2017-12-17] MEDS: PANTOPRAZOLE 40 MG INJ IV ×2 (05:37→17:25)
[2017-12-17] MEDS: LEVOTHYROXINE 50 MCG TAB PO (05:37)
[2017-12-17] MEDS: INSULIN ASPART [NOVOLOG] 3 ML PEN SC ×4 (05:40→17:24)
[2017-12-17] MEDS: NYSTATIN SUSP 5 ML CUP PO ×4 (09:00→20:44)
[2017-12-17] MEDS: ESCITALOPRAM 10 MG TAB PO (09:17)
[2017-12-17] MEDS: SUCRALFATE (100 MG/ML) 10ML CUP GTB ×4 (09:17→20:44)
[2017-12-17] MEDS: NEUTRA-PHOS 250 MG PACKET GTB ×2 (09:18→20:44)
[2017-12-17] MEDS: POLYETHYLENE GLYCOL 17 GM PACKET PO (09:18)
[2017-12-17] MEDS: METOCLOPRAMIDE 10 MG INJ IV ×3 (09:19→20:43)
[2017-12-17] MEDS: SILVER SULFADIAZINE 1% 25 GM CR TOP (09:20)
[2017-12-17] MEDS: HEPARIN 5,000 UNIT/0.5 ML VIAL SC ×2 (09:22→21:05)
[2017-12-17] MEDS: ATORVASTATIN 10 MG TAB PO (20:43)
[2017-12-18] MEDS: ACCU-CHEK XX (02:00)
[2017-12-18] MEDS: PANTOPRAZOLE 40 MG INJ IV ×2 (05:46→17:38)
[2017-12-18] MEDS: INSULIN ASPART [NOVOLOG] 3 ML PEN SC ×4 (05:46→17:39)
[2017-12-18] MEDS: LEVOTHYROXINE 50 MCG TAB PO (05:46)
[2017-12-18] MEDS: NYSTATIN SUSP 5 ML CUP PO ×5 (09:00→21:49)
[2017-12-18] MEDS: POLYETHYLENE GLYCOL 17 GM PACKET PO (09:00)
[2017-12-18] MEDS: ESCITALOPRAM 10 MG TAB PO (09:01)
[2017-12-18] MEDS: NEUTRA-PHOS 250 MG PACKET GTB ×2 (09:01→21:49)
[2017-12-18] MEDS: METOCLOPRAMIDE 10 MG INJ IV ×3 (09:01→21:49)
[2017-12-18] MEDS: SUCRALFATE (100 MG/ML) 10ML CUP GTB ×4 (09:06→21:50)
[2017-12-18] MEDS: HEPARIN 5,000 UNIT/0.5 ML VIAL SC ×2 (09:07→21:52)
[2017-12-18] MEDS: HYDROCODONE/APAP (5/325) TAB PO (11:42)
[2017-12-18] MEDS: SILVER SULFADIAZINE 1% 25 GM CR TOP (11:50)
[2017-12-18] MEDS: ATORVASTATIN 10 MG TAB PO (21:50)
[2017-12-19] MEDS: ACCU-CHEK XX (02:00)
[2017-12-19] MEDS: PANTOPRAZOLE 40 MG INJ IV ×2 (05:32→17:10)
[2017-12-19] MEDS: LEVOTHYROXINE 50 MCG TAB PO (05:32)
[2017-12-19] MEDS: INSULIN ASPART [NOVOLOG] 3 ML PEN SC ×4 (05:39→17:11)
[2017-12-19] MEDS: NYSTATIN SUSP 5 ML CUP PO ×3 (09:00→17:00)
[2017-12-19] MEDS: POLYETHYLENE GLYCOL 17 GM PACKET PO (09:00)
[2017-12-19] MEDS: NEUTRA-PHOS 250 MG PACKET GTB (09:14)
[2017-12-19] MEDS: SUCRALFATE (100 MG/ML) 10ML CUP GTB ×3 (09:14→17:10)
[2017-12-19] MEDS: ESCITALOPRAM 10 MG TAB PO (09:14)
[2017-12-19] MEDS: METOCLOPRAMIDE 10 MG INJ IV ×2 (09:15→12:05)
[2017-12-19] MEDS: HEPARIN 5,000 UNIT/0.5 ML VIAL SC (09:17)
[2017-12-19] MEDS: HYDROCODONE/APAP (5/325) TAB PO (13:48)
[2017-12-19] MEDS: SILVER SULFADIAZINE 1% 25 GM CR TOP (14:53)
== END 2017-12-19 18:38 | disposition home health service (06) | DRG 872 ==
LOC: PP2 23:29 → E/R 16:23
PROC: 0D758ZZ Dilation of Esophagus, Via Natural or Artificial Opening Endoscopic (ICD-10-PCS; principal; 2017-12-04 15:40)
PROC: 0DH68UZ Insertion of Feeding Device into Stomach, Via Natural or Artificial Opening Endoscopic (ICD-10-PCS; 2017-12-04 15:40)
PROC: 0DB68ZX Excision of Stomach, Via Natural or Artificial Opening Endoscopic, Diagnostic (ICD-10-PCS; 2017-12-04 15:40)
DX: A41.9 Sepsis, unspecified organism (principal); N17.9 Acute kidney failure, unspecified; E11.22 Type 2 diabetes mellitus with diabetic chronic kidney disease; K22.2 Esophageal obstruction; E87.1 Hypo-osmolality and hyponatremia; E83.39 Other disorders of phosphorus metabolism; L03.311 Cellulitis of abdominal wall; N39.0 Urinary tract infection, site not specified; Z79.4 Long term (current) use of insulin; E83.52 Hypercalcemia; K76.0 Fatty (change of) liver, not elsewhere classified; E66.01 Morbid (severe) obesity due to excess calories; R13.10 Dysphagia, unspecified; F50.89 Other specified eating disorder; E83.9 Disorder of mineral metabolism, unspecified; Z68.38 Body mass index [BMI] 38.0-38.9, adult; K20.8 Other esophagitis; E78.5 Hyperlipidemia, unspecified; E03.9 Hypothyroidism, unspecified; N26.1 Atrophy of kidney (terminal); I12.9 Hypertensive chronic kidney disease with stage 1 through stage 4 chronic kidney disease, or unspecified chronic kidney disease; N18.9 Chronic kidney disease, unspecified; M1A.9XX0 Chronic gout, unspecified, without tophus (tophi); D64.9 Anemia, unspecified; B95.8 Unspecified staphylococcus as the cause of diseases classified elsewhere; R53.81 Other malaise; K44.9 Diaphragmatic hernia without obstruction or gangrene; K29.70 Gastritis, unspecified, without bleeding; K20.9 Esophagitis, unspecified; B96.20 Unspecified Escherichia coli [E. coli] as the cause of diseases classified elsewhere; R60.0 Localized edema; R62.7 Adult failure to thrive; Z74.01 Bed confinement status
CPT/HCPCS: 36415; 70490; 71045; 71250; 73560; 74176; 74230; 80048; 80053; 80061; 81001; 81003; 82043; 82270; 82306; 82378; 82962; 83036; 83605; 83690; 83735; 83970; 84100; 84132; 84155; 84300; 84439; 84443; 84484; 84560; 85025; 86301; 86304; 87040; 87086; 88305; 92526; 92610; 93306; 93970; 96374; 96375; 97110; 97162; 97530; 99291-25

== ENCOUNTER 2017-12-28 10:20 | Inpatient (IN) | payer OTHER ==
[2017-12-28] MEDS: morphine 4 MG/ML VIAL IV (11:19)
[2017-12-28] MEDS: ONDANSETRON 4 MG INJ IV ×2 (11:19→15:35)
[2017-12-28] MEDS: SOD CHLORIDE 0.9% 1,000 ML IV ×3 (11:20→18:49)
[2017-12-28 12:56] LABS: ADD MAN DIFF? NO
[2017-12-28 12:57] LABS: WHITE BLOOD COUNT 11.1 10^3/ul (4.8-10.8)
[2017-12-28 12:57] LABS: BASOPHILS % 0.3 % (0.0-2.0); EOSINOPHILS # 0.7 10^3/ul (0.0-0.5); EOSINOPHILS % 6.4 % (0.0-7.0); HEMATOCRIT 31.7 % (37.0-47.0); HEMOGLOBIN 10.1 g/dl (12.0-16.0); LYMPHOCYTES # 2.1 10^3/ul (0.8-2.9); LYMPHOCYTES % 19.2 % (15.0-51.0); MEAN CORPUSCULAR HEMOGLOBIN 28.5 pg (29.0-33.0); MEAN CORPUSCULAR HGB CONC 31.9 g/dl (32.0-37.0); MEAN CORPUSCULAR VOLUME 89.3 fl (82.0-101.0); MONOCYTES % 8.8 % (0.0-11.0); NEUTROPHILS % 63.6 % (39.0-77.0); NUCLEATED RED BLOOD CELLS% 0.3 /100WBC (0.0-0.0); RED BLOOD COUNT 3.55 10^6/ul (4.20-5.40); RED CELL DISTRIBUTION WIDTH 18.9 % (11.5-14.5)
[2017-12-28 13:02] LABS: PLATELET COUNT 441 10^3/UL (140-415); POSITIVE DIFF @See below
[2017-12-28 13:15] LABS: LACTIC ACID 1.2 mmol/L (0.5-2.0)
[2017-12-28 13:58] LABS: ALANINE AMINOTRANSFERASE 30 IU/L (13-69); ALBUMIN 2.6 g/dl (3.3-4.9); ALBUMIN/GLOBULIN RATIO 0.81; ALKALINE PHOSPHATASE 100 IU/L (42-121); AMYLASE 64 U/L (11-123); ANION GAP 17 (8-16); ASPARTATE AMINO TRANSFERASE 26 IU/L (15-46); BILIRUBIN,INDIRECT 0.2 mg/dl (0-1.1); BILIRUBIN,TOTAL 0.2 mg/dl (0.2-1.3); BLOOD UREA NITROGEN 11 mg/dl (7-20); CARBON DIOXIDE 16 mmol/L (21-31); CHLORIDE 106 mmol/L (97-110); CREATININE 0.89 mg/dl (0.44-1.00); GLUCOSE 68 mg/dl (70-220); LIPASE 109 U/L (23-300); POTASSIUM 4.2 mmol/L (3.5-5.1); SODIUM 135 mmol/L (135-144); TOTAL PROTEIN 5.8 g/dl (6.1-8.1)
[2017-12-28 14:02] LABS: TROPONIN-I < 0.012 ng/ml (0.00-0.12)
[2017-12-28 14:14] LABS: INR 0.97
[2017-12-28 15:55] LABS: ADD UMIC YES; UR ASCORBIC ACID NEGATIVE (NEGATIVE); UR BACTERIA MANY /HPF (NONE SEEN); UR BILIRUBIN (Dip) NEGATIVE (NEGATIVE); UR BLOOD (Dip) NEGATIVE (NEGATIVE); UR CLARITY CLOUDY (CLEAR); UR COLOR YELLOW (YELLOW); UR GLUCOSE (Dip) NEGATIVE (NEGATIVE); UR KETONES (Dip) 1+ mg/dL (NEGATIVE); UR LEUKOCYTE ESTERASE (Dip) 3+ Leu/ul (NEGATIVE); UR MUCUS FEW /HPF (NONE SEEN); UR NITRITE (Dip) POSITIVE (NEGATIVE); UR RBC 11 /HPF (0-5); UR SQUAMOUS EPITHELIAL CELL MANY /HPF (FEW); UR TOTAL PROTEIN (Dip) NEGATIVE (NEGATIVE); UR UROBILINOGEN (Dip) 1+ mg/dL (NEGATIVE); UR WBC > 182 /HPF (0-5)
[2017-12-28] MEDS ORDERED: ONDANSETRON 4 MG INJ IV (16:00)
[2017-12-28] MEDS ORDERED: ACETAMINOPHEN 325 MG TAB PO (16:00)
[2017-12-28] MEDS ORDERED: DOCUSATE SODIUM 100 MG CAP PO (18:00)
[2017-12-28] MEDS ORDERED: HYDROCODONE/APAP (5/325) TAB PO (18:00)
[2017-12-28] MEDS ORDERED: GLUCAGON 1 MG INJ IM (18:00)
[2017-12-28] MEDS ORDERED: VANCOMYCIN IV PER PHARMACY XX (18:00)
[2017-12-28] MEDS ORDERED: GLUCOSE GEL 15 GRAM TUBE PO ×2 (18:00)
[2017-12-28] MEDS ORDERED: NACL 0.9% 3 ML SYG IV (18:00)
[2017-12-28] MEDS ORDERED: morphine 2 MG INJ IV (18:00)
[2017-12-28] MEDS ORDERED: GLUCOSE GEL 15 GRAM TUBE BUCCAL (18:00)
[2017-12-28] MEDS ORDERED: DEXTROSE 50% 50 ML SYRINGE IV ×2 (18:00)
[2017-12-28] MEDS: DEXTROSE 5%-0.45% NACL 1,000 ML IV (20:38)
[2017-12-28] MEDS: SUCRALFATE (100 MG/ML) 10ML CUP GTB (20:41)
[2017-12-28] MEDS: MEROPENEM 1 GM/50ML(PMX) 50 ML IVPB (20:41)
[2017-12-28] MEDS: INSULIN ASPART [NOVOLOG] 3 ML PEN SC (20:44)
[2017-12-28] MEDS: VANCOMYCIN 1.75 GM in D5W 500 ML IVPB (22:27)
[2017-12-29] MEDS: INSULIN ASPART [NOVOLOG] 3 ML PEN SC ×3 (01:00→09:00)
[2017-12-29] MEDS: ACCU-CHEK XX (01:16)
[2017-12-29] MEDS: PANTOPRAZOLE (EC) 40 MG TAB PO (05:17)
[2017-12-29] MEDS: LEVOTHYROXINE 50 MCG TAB PO (05:17)
[2017-12-29 06:06] LABS: ADD MAN DIFF? NO
[2017-12-29 06:17] LABS: WHITE BLOOD COUNT 10.2 10^3/ul (4.8-10.8)
[2017-12-29 06:17] LABS: BASOPHILS % 0.3 % (0.0-2.0); EOSINOPHILS # 0.9 10^3/ul (0.0-0.5); EOSINOPHILS % 9.1 % (0.0-7.0); HEMOGLOBIN 9.4 g/dl (12.0-16.0); LYMPHOCYTES # 1.9 10^3/ul (0.8-2.9); LYMPHOCYTES % 18.9 % (15.0-51.0); MEAN CORPUSCULAR HEMOGLOBIN 29.1 pg (29.0-33.0); MEAN CORPUSCULAR HGB CONC 32.4 g/dl (32.0-37.0); MEAN CORPUSCULAR VOLUME 89.8 fl (82.0-101.0); MEAN PLATELET VOLUME 9.9 fl (7.4-10.4); MONOCYTE # 0.9 10^3/ul (0.3-0.9); MONOCYTES % 9.2 % (0.0-11.0); NEUTROPHIL # 6.2 10^3/ul (1.6-7.5); NEUTROPHILS % 61.1 % (39.0-77.0); PLATELET COUNT 514 10^3/UL (140-415); RED BLOOD COUNT 3.23 10^6/ul (4.20-5.40); RED CELL DISTRIBUTION WIDTH 18.8 % (11.5-14.5)
[2017-12-29 07:10] LABS: ANION GAP 12 (8-16); BLOOD UREA NITROGEN 10 mg/dl (7-20); CALCIUM 9.5 mg/dl (8.4-10.2); CARBON DIOXIDE 21 mmol/L (21-31); CHLORIDE 105 mmol/L (97-110); CREATININE 0.79 mg/dl (0.44-1.00); GLUCOSE 101 mg/dl (70-220); MAGNESIUM 1.4 mg/dl (1.7-2.5); PHOSPHORUS 3.8 mg/dl (2.5-4.9); SODIUM 134 mmol/L (135-144)
[2017-12-29 07:24] LABS: URIC ACID 8.3 mg/dl (3.1-7.9)
[2017-12-29] MEDS: SUCRALFATE (100 MG/ML) 10ML CUP GTB ×4 (08:14→20:20)
[2017-12-29] MEDS: ESCITALOPRAM 10 MG TAB PO (08:14)
[2017-12-29] MEDS: MEROPENEM 1 GM/50ML(PMX) 50 ML IVPB ×2 (08:14→20:21)
[2017-12-29] MEDS: ALLOPURINOL 100 MG TAB GTB (11:00)
[2017-12-29] MEDS: MAGNESIUM SULFATE 4 GM/100 ML 100 ML IVPB (11:00)
[2017-12-29] MEDS: ONDANSETRON 4 MG INJ IV (11:46)
[2017-12-29] MEDS: VANCOMYCIN 750 MG in DEXTROSE 5% 150 ML IVPB ×2 (12:00→23:12)
[2017-12-29] MEDS: ACETAMINOPHEN 325 MG TAB PO ×2 (13:25→20:22)
[2017-12-29] MEDS: SOD CHLORIDE 0.9% 1,000 ML IV ×2 (13:47→23:47)
[2017-12-29] MEDS ORDERED: VANCOMYCIN 1 GM 250 ML IVPB (20:00)
[2017-12-29] MEDS: MEGESTROL (40 MG/ML) 10ML CUP PEG (20:20)
[2017-12-29] MEDS: ZOLPIDEM 5 MG TAB PO (20:22)
[2017-12-30] MEDS: ACCU-CHEK XX (02:00)
[2017-12-30] MEDS: ONDANSETRON 4 MG INJ IV ×2 (03:38→15:29)
[2017-12-30] MEDS ORDERED: MAGNESIUM HYDROXIDE 30ML CUP PO (05:30)
[2017-12-30] MEDS ORDERED: PANTOPRAZOLE 40 MG INJ (05:38)
[2017-12-30] MEDS: LEVOTHYROXINE 50 MCG TAB PO (05:48)
[2017-12-30] MEDS: MAGNESIUM HYDROXIDE 30ML CUP PO (05:48)
[2017-12-30] MEDS: PANTOPRAZOLE 40 MG INJ IV (06:01)
[2017-12-30] MEDS: ACETAMINOPHEN 325 MG TAB PO ×2 (07:31→13:22)
[2017-12-30] MEDS: SOD CHLORIDE 0.9% 1,000 ML IV ×2 (08:09→18:49)
[2017-12-30] MEDS: SUCRALFATE (100 MG/ML) 10ML CUP GTB ×4 (08:10→22:22)
[2017-12-30] MEDS: MEGESTROL (40 MG/ML) 10ML CUP PEG ×2 (08:10→22:22)
[2017-12-30] MEDS: ESCITALOPRAM 10 MG TAB PO (08:10)
[2017-12-30] MEDS: ALLOPURINOL 100 MG TAB GTB ×2 (08:10→08:14)
[2017-12-30] MEDS: MEROPENEM 1 GM/50ML(PMX) 50 ML IVPB (08:10)
[2017-12-30 09:32] LABS: ADD MAN DIFF? NO
[2017-12-30 09:35] LABS: BASOPHILS % 0.2 % (0.0-2.0); EOSINOPHILS # 0.7 10^3/ul (0.0-0.5); EOSINOPHILS % 7.2 % (0.0-7.0); HEMATOCRIT 27.2 % (37.0-47.0); HEMOGLOBIN 9.1 g/dl (12.0-16.0); LYMPHOCYTES # 0.7 10^3/ul (0.8-2.9); LYMPHOCYTES % 7.8 % (15.0-51.0); MEAN CORPUSCULAR HGB CONC 33.5 g/dl (32.0-37.0); MEAN CORPUSCULAR VOLUME 86.6 fl (82.0-101.0); MEAN PLATELET VOLUME 9.7 fl (7.4-10.4); MONOCYTE # 0.7 10^3/ul (0.3-0.9); MONOCYTES % 7.6 % (0.0-11.0); NEUTROPHIL # 6.8 10^3/ul (1.6-7.5); PLATELET COUNT 504 10^3/UL (140-415); RED BLOOD COUNT 3.14 10^6/ul (4.20-5.40); RED CELL DISTRIBUTION WIDTH 18.6 % (11.5-14.5)
[2017-12-30 09:53] LABS: ANION GAP 10 (8-16); BLOOD UREA NITROGEN 8 mg/dl (7-20); CALCIUM 9.2 mg/dl (8.4-10.2); CARBON DIOXIDE 23 mmol/L (21-31); CHLORIDE 105 mmol/L (97-110); CREATININE 0.83 mg/dl (0.44-1.00); GLUCOSE 121 mg/dl (70-220); MAGNESIUM 2.2 mg/dl (1.7-2.5); PHOSPHORUS 2.2 mg/dl (2.5-4.9); POTASSIUM 3.6 mmol/L (3.5-5.1); SODIUM 134 mmol/L (135-144)
[2017-12-30 09:59] LABS: VANCOMYCIN,TROUGH 23.7 ug/ml (10.0-20.0)
[2017-12-30] MEDS: VANCOMYCIN 750 MG in DEXTROSE 5% 150 ML IVPB (10:06)
[2017-12-30] MEDS: LOSARTAN 25 MG TAB GTB (13:22)
[2017-12-30] MEDS ORDERED: VANCOMYCIN 750 MG in DEXTROSE 5% 150 ML IVPB (22:00)
[2017-12-30] MEDS: CEFEPIME 1GM/50 ML (PMX) 50 ML IVPB (22:22)
[2017-12-30] MEDS: DOXYCYCLINE 100 MG TAB PO (22:23)
[2017-12-30] MEDS ORDERED: VANCOMYCIN 1 GM 250 ML IVPB (23:00)
[2017-12-31] MEDS: ACCU-CHEK XX (02:00)
[2017-12-31] MEDS: SOD CHLORIDE 0.9% 1,000 ML IV ×2 (05:05→17:53)
[2017-12-31] MEDS: LEVOTHYROXINE 50 MCG TAB PO (05:06)
[2017-12-31] MEDS: PANTOPRAZOLE 40 MG INJ IV (05:06)
[2017-12-31] MEDS: ESCITALOPRAM 10 MG TAB PO (08:12)
[2017-12-31] MEDS: DOXYCYCLINE 100 MG TAB PO ×2 (08:12→21:15)
[2017-12-31] MEDS: SUCRALFATE (100 MG/ML) 10ML CUP GTB ×4 (08:12→21:15)
[2017-12-31] MEDS: MEGESTROL (40 MG/ML) 10ML CUP PEG ×2 (08:12→21:15)
[2017-12-31] MEDS: LOSARTAN 25 MG TAB GTB (08:13)
[2017-12-31] MEDS: CEFEPIME 1GM/50 ML (PMX) 50 ML IVPB ×2 (09:04→21:15)
[2017-12-31] MEDS: METOCLOPRAMIDE 10 MG TAB PEG ×2 (13:10→21:15)
[2018-01-01] MEDS: ACCU-CHEK XX (02:00)
[2018-01-01] MEDS: SOD CHLORIDE 0.9% 1,000 ML IV ×4 (04:14→21:33)
[2018-01-01] MEDS: METOCLOPRAMIDE 10 MG TAB PEG ×3 (05:14→22:11)
[2018-01-01] MEDS: LEVOTHYROXINE 50 MCG TAB PO (05:14)
[2018-01-01] MEDS: PANTOPRAZOLE 40 MG INJ IV (05:23)
[2018-01-01 05:57] LABS: ADD MAN DIFF? NO
[2018-01-01 05:59] LABS: BASOPHILS % 0.5 % (0.0-2.0); EOSINOPHILS # 0.9 10^3/ul (0.0-0.5); EOSINOPHILS % 13.6 % (0.0-7.0); HEMOGLOBIN 8.9 g/dl (12.0-16.0); LYMPHOCYTES # 1.6 10^3/ul (0.8-2.9); LYMPHOCYTES % 24.9 % (15.0-51.0); MEAN CORPUSCULAR VOLUME 87.9 fl (82.0-101.0); MEAN PLATELET VOLUME 10.4 fl (7.4-10.4); MONOCYTE # 0.7 10^3/ul (0.3-0.9); NEUTROPHIL # 3.1 10^3/ul (1.6-7.5); NEUTROPHILS % 48.6 % (39.0-77.0); PLATELET COUNT 509 10^3/UL (140-415); RED BLOOD COUNT 3.07 10^6/ul (4.20-5.40); RED CELL DISTRIBUTION WIDTH 19.2 % (11.5-14.5)
[2018-01-01 05:59] LABS: WHITE BLOOD COUNT 6.3 10^3/ul (4.8-10.8)
[2018-01-01 07:11] LABS: ALBUMIN 1.9 g/dl (3.3-4.9); ANION GAP 9 (8-16); BLOOD UREA NITROGEN 10 mg/dl (7-20); CALCIUM 9.8 mg/dl (8.4-10.2); CARBON DIOXIDE 21 mmol/L (21-31); CHLORIDE 111 mmol/L (97-110); CREATININE 0.66 mg/dl (0.44-1.00); GLUCOSE 93 mg/dl (70-220); MAGNESIUM 1.6 mg/dl (1.7-2.5); PHOSPHORUS 2.3 mg/dl (2.5-4.9); POTASSIUM 3.8 mmol/L (3.5-5.1); SODIUM 137 mmol/L (135-144)
[2018-01-01] MEDS: CEFEPIME 1GM/50 ML (PMX) 50 ML IVPB ×2 (08:40→20:07)
[2018-01-01] MEDS: MEGESTROL (40 MG/ML) 10ML CUP PEG ×2 (10:01→20:07)
[2018-01-01] MEDS: DOXYCYCLINE 100 MG TAB PO ×2 (10:01→20:08)
[2018-01-01] MEDS: SUCRALFATE (100 MG/ML) 10ML CUP GTB ×4 (10:02→20:07)
[2018-01-01] MEDS: ESCITALOPRAM 10 MG TAB PO (10:02)
[2018-01-01] MEDS: LOSARTAN 50 MG TAB GTB (10:06)
[2018-01-01] MEDS: MAGNESIUM SULFATE 3 GM in DEXTROSE 5% 100 ML IVPB (13:35)
[2018-01-01] MEDS: ACETAMINOPHEN 325 MG TAB PO (20:07)
[2018-01-02] MEDS: ACCU-CHEK XX (01:17)
[2018-01-02] MEDS: SOD CHLORIDE 0.9% 1,000 ML IV ×2 (01:47→14:18)
[2018-01-02] MEDS: LEVOTHYROXINE 50 MCG TAB PO (05:24)
[2018-01-02] MEDS: PANTOPRAZOLE 40 MG INJ IV (05:24)
[2018-01-02] MEDS: METOCLOPRAMIDE 10 MG TAB PEG ×3 (05:24→21:10)
[2018-01-02 07:17] LABS: ADD MAN DIFF? NO
[2018-01-02 07:20] LABS: BASOPHILS % 0.4 % (0.0-2.0); EOSINOPHILS # 0.7 10^3/ul (0.0-0.5); EOSINOPHILS % 10.3 % (0.0-7.0); HEMATOCRIT 29.2 % (37.0-47.0); HEMOGLOBIN 9.3 g/dl (12.0-16.0); LYMPHOCYTES # 2.4 10^3/ul (0.8-2.9); LYMPHOCYTES % 33.6 % (15.0-51.0); MEAN CORPUSCULAR HEMOGLOBIN 28.5 pg (29.0-33.0); MEAN CORPUSCULAR HGB CONC 31.8 g/dl (32.0-37.0); MEAN CORPUSCULAR VOLUME 89.6 fl (82.0-101.0); MEAN PLATELET VOLUME 9.8 fl (7.4-10.4); MONOCYTE # 0.9 10^3/ul (0.3-0.9); MONOCYTES % 12.3 % (0.0-11.0); NEUTROPHILS % 42.5 % (39.0-77.0); PLATELET COUNT 520 10^3/UL (140-415); RED BLOOD COUNT 3.26 10^6/ul (4.20-5.40); RED CELL DISTRIBUTION WIDTH 18.7 % (11.5-14.5)
[2018-01-02 07:43] LABS: ALBUMIN 2.1 g/dl (3.3-4.9); ANION GAP 9 (8-16); BLOOD UREA NITROGEN 8 mg/dl (7-20); CALCIUM 9.6 mg/dl (8.4-10.2); CARBON DIOXIDE 22 mmol/L (21-31); CHLORIDE 115 mmol/L (97-110); CREATININE 0.66 mg/dl (0.44-1.00); GLUCOSE 85 mg/dl (70-220); MAGNESIUM 2.1 mg/dl (1.7-2.5); PHOSPHORUS 2.4 mg/dl (2.5-4.9); POTASSIUM 3.5 mmol/L (3.5-5.1); SODIUM 142 mmol/L (135-144)
[2018-01-02] MEDS: CEFEPIME 1GM/50 ML (PMX) 50 ML IVPB ×2 (10:32→21:10)
[2018-01-02] MEDS: SUCRALFATE (100 MG/ML) 10ML CUP GTB ×4 (10:32→21:10)
[2018-01-02] MEDS: MEGESTROL (40 MG/ML) 10ML CUP PEG ×2 (10:33→21:10)
[2018-01-02] MEDS: ESCITALOPRAM 10 MG TAB PO (10:33)
[2018-01-02] MEDS: DOXYCYCLINE 100 MG TAB PO ×2 (10:33→21:10)
[2018-01-02] MEDS: LOSARTAN 50 MG TAB GTB ×2 (10:33→15:52)
[2018-01-02] MEDS ORDERED: POTASSIUM CHLORIDE (1.33 MEQ/ML PO SYG) GTB (12:00)
[2018-01-02] MEDS: POTASSIUM CHLORIDE 20 MEQ POWDER FOR ORAL SOLN PO (14:18)
[2018-01-03] MEDS: SOD CHLORIDE 0.9% 1,000 ML IV ×2 (00:02→12:00)
[2018-01-03] MEDS: ACCU-CHEK XX (02:00)
[2018-01-03] MEDS: METOCLOPRAMIDE 10 MG TAB PEG ×2 (06:29→13:01)
[2018-01-03] MEDS: LEVOTHYROXINE 50 MCG TAB PO (06:29)
[2018-01-03] MEDS: PANTOPRAZOLE 40 MG INJ IV (06:29)
[2018-01-03] MEDS: CEFEPIME 1GM/50 ML (PMX) 50 ML IVPB (08:58)
[2018-01-03] MEDS: DOXYCYCLINE 100 MG TAB PO (08:59)
[2018-01-03] MEDS: LOSARTAN 50 MG TAB GTB (08:59)
[2018-01-03] MEDS: SUCRALFATE (100 MG/ML) 10ML CUP GTB ×3 (09:00→17:07)
[2018-01-03] MEDS: MEGESTROL (40 MG/ML) 10ML CUP PEG (09:00)
[2018-01-03] MEDS: ESCITALOPRAM 10 MG TAB PO (09:00)
[2018-01-03 09:23] LABS: ADD MAN DIFF? NO
[2018-01-03 09:49] LABS: ALBUMIN 2.3 g/dl (3.3-4.9); ANION GAP 10 (8-16); BLOOD UREA NITROGEN 7 mg/dl (7-20); CALCIUM 9.6 mg/dl (8.4-10.2); CARBON DIOXIDE 20 mmol/L (21-31); CHLORIDE 116 mmol/L (97-110); CREATININE 0.68 mg/dl (0.44-1.00); GLUCOSE 80 mg/dl (70-220); MAGNESIUM 1.7 mg/dl (1.7-2.5); PHOSPHORUS 2.2 mg/dl (2.5-4.9); POTASSIUM 3.8 mmol/L (3.5-5.1); SODIUM 142 mmol/L (135-144)
[2018-01-03 10:40] LABS: BASOPHIL # 0.1 10^3/ul (0.0-0.1); BASOPHILS % 0.6 % (0.0-2.0); EOSINOPHILS # 0.7 10^3/ul (0.0-0.5); EOSINOPHILS % 8.2 % (0.0-7.0); HEMATOCRIT 29.7 % (37.0-47.0); HEMOGLOBIN 9.7 g/dl (12.0-16.0); LYMPHOCYTES # 2.5 10^3/ul (0.8-2.9); LYMPHOCYTES % 30.5 % (15.0-51.0); MEAN CORPUSCULAR HEMOGLOBIN 28.8 pg (29.0-33.0); MEAN CORPUSCULAR HGB CONC 32.7 g/dl (32.0-37.0); MEAN CORPUSCULAR VOLUME 88.1 fl (82.0-101.0); MEAN PLATELET VOLUME 10.2 fl (7.4-10.4); MONOCYTES % 12.5 % (0.0-11.0); NEUTROPHIL # 3.9 10^3/ul (1.6-7.5); NEUTROPHILS % 47.5 % (39.0-77.0); PLATELET COUNT 535 10^3/UL (140-415); RED BLOOD COUNT 3.37 10^6/ul (4.20-5.40); RED CELL DISTRIBUTION WIDTH 19.1 % (11.5-14.5)
[2018-01-03 10:40] LABS: WHITE BLOOD COUNT 8.2 10^3/ul (4.8-10.8)
[2018-01-03] MEDS: LORAZEPAM 2 MG INJ IV ×2 (15:02→18:36)
== END 2018-01-03 20:12 | disposition home health service (06) | DRG 872 ==
LOC: E/R 10:20 → PP2 15:54
DX: A41.9 Sepsis, unspecified organism (principal); I10 Essential (primary) hypertension; E66.01 Morbid (severe) obesity due to excess calories; N39.0 Urinary tract infection, site not specified; E11.9 Type 2 diabetes mellitus without complications; L03.818 Cellulitis of other sites; D63.8 Anemia in other chronic diseases classified elsewhere; Z93.1 Gastrostomy status; E86.0 Dehydration; R11.2 Nausea with vomiting, unspecified; Z68.38 Body mass index [BMI] 38.0-38.9, adult; R19.7 Diarrhea, unspecified; M10.9 Gout, unspecified; B95.61 Methicillin susceptible Staphylococcus aureus infection as the cause of diseases classified elsewhere; Z16.12 Extended spectrum beta lactamase (ESBL) resistance
CPT/HCPCS: 70544; 70551; 71045; 80048; 80053; 80069; 80202; 81001; 82150; 82962; 83036; 83605; 83690; 83735; 84100; 84484; 84560; 85025; 85610; 85730; 87045; 87081; 87086; 93005; 96374; 96375; 96376; 99285-25; G0378

== ENCOUNTER 2018-05-29 10:41 | Day surgery (SDC) | payer OTHER | END 2018-05-29 11:51 | disposition home or self-care (01) | LOC: GIL 10:41 | DX: K94.23 Gastrostomy malfunction (principal); Y84.8 Other medical procedures as the cause of abnormal reaction of the patient, or of later complication, without mention of misadventure at the time of the procedure; E11.9 Type 2 diabetes mellitus without complications; I10 Essential (primary) hypertension | CPT/HCPCS: Z7610 ==

== ENCOUNTER 2019-04-20 20:32 | Inpatient (IN) | payer MEDICARE, OTHER ==
[2019-04-20 21:55] LABS: ADD MAN DIFF? NO
[2019-04-20 21:57] LABS: BASOPHIL # 0.1 10^3/ul (0.0-0.1); BASOPHILS % 0.6 % (0.0-2.0); EOSINOPHILS # 0.2 10^3/ul (0.0-0.5); EOSINOPHILS % 1.1 % (0.0-7.0); HEMATOCRIT 34.5 % (37.0-47.0); HEMOGLOBIN 10.6 g/dl (12.0-16.0); LYMPHOCYTES # 2.5 10^3/ul (0.8-2.9); LYMPHOCYTES % 15.7 % (15.0-51.0); MEAN CORPUSCULAR HEMOGLOBIN 25.9 pg (29.0-33.0); MEAN CORPUSCULAR HGB CONC 30.7 g/dl (32.0-37.0); MEAN CORPUSCULAR VOLUME 84.1 fl (82.0-101.0); MEAN PLATELET VOLUME 9.3 fl (7.4-10.4); MONOCYTE # 0.9 10^3/ul (0.3-0.9); MONOCYTES % 5.7 % (0.0-11.0); NEUTROPHIL # 11.5 10^3/ul (1.6-7.5); PLATELET COUNT 392 10^3/UL (140-415); RED CELL DISTRIBUTION WIDTH 17.8 % (11.5-14.5)
[2019-04-20 21:57] LABS: WHITE BLOOD COUNT 15.8 10^3/ul (4.8-10.8)
[2019-04-20 22:10] LABS: ADD UMIC YES; UR ASCORBIC ACID NEGATIVE (NEGATIVE); UR BACTERIA MANY /HPF (NONE SEEN); UR BILIRUBIN (Dip) NEGATIVE (NEGATIVE); UR BLOOD (Dip) 1+ mg/dL (NEGATIVE); UR CLARITY CLOUDY (CLEAR); UR COLOR YELLOW (YELLOW); UR GLUCOSE (Dip) NEGATIVE (NEGATIVE); UR KETONES (Dip) NEGATIVE (NEGATIVE); UR LEUKOCYTE ESTERASE (Dip) 3+ Leu/ul (NEGATIVE); UR NITRITE (Dip) NEGATIVE (NEGATIVE); UR RBC 8 /HPF (0-5); UR SQUAMOUS EPITHELIAL CELL MODERATE /HPF (FEW); UR TOTAL PROTEIN (Dip) 2+ mg/dl (NEGATIVE); UR UROBILINOGEN (Dip) NEGATIVE (NEGATIVE); UR WBC 161 /HPF (0-5)
[2019-04-20] MEDS: ONDANSETRON 4 MG INJ IV (22:15)
[2019-04-20] MEDS: morphine 4 MG/ML VIAL IV (22:16)
[2019-04-20] MEDS: SOD CHLORIDE 0.9% 500 ML IV (22:16)
[2019-04-20 22:27] LABS: ALANINE AMINOTRANSFERASE 16 IU/L (13-69); ALBUMIN 3.7 g/dl (3.3-4.9); ALBUMIN/GLOBULIN RATIO 1.15; ALKALINE PHOSPHATASE 125 IU/L (42-121); ANION GAP 11 (5-13); ASPARTATE AMINO TRANSFERASE 17 IU/L (15-46); BILIRUBIN,INDIRECT 0.5 mg/dl (0-1.1); BILIRUBIN,TOTAL 0.5 mg/dl (0.2-1.3); BLOOD UREA NITROGEN 14 mg/dl (7-20); CALCIUM 9.6 mg/dl (8.4-10.2); CARBON DIOXIDE 21 mmol/L (21-31); CHLORIDE 100 mmol/L (97-110); CREATININE 1.27 mg/dl (0.44-1.00); Estimated GFR 42 mL/min (>60); GLUCOSE 125 mg/dl (70-220); LIPASE 421 U/L (23-300); POTASSIUM 3.8 mmol/L (3.5-5.1); SODIUM 132 mmol/L (135-144); TOTAL PROTEIN 6.9 g/dl (6.1-8.1)
[2019-04-20] MEDS: CEFTRIAXONE 1 GM/50 ML (PMX) 50 ML IVPB (23:36)
[2019-04-21] MEDS ORDERED: ONDANSETRON 4 MG INJ IV
[2019-04-21] MEDS ORDERED: ACETAMINOPHEN 325 MG TAB PO
[2019-04-21] MEDS ORDERED: DOCUSATE SODIUM 100 MG CAP PO (00:30)
[2019-04-21] MEDS ORDERED: BISACODYL (EC) 5 MG TAB PO (00:30)
[2019-04-21] MEDS: MEROPENEM 1 GM/50ML(PMX) 50 ML IVPB ×2 (00:38→08:28)
[2019-04-21] MEDS: HEPARIN 5,000 UNIT/1 ML VIAL SC ×4 (00:38→21:06)
[2019-04-21] MEDS: PANTOPRAZOLE (EC) 40 MG TAB PO ×2 (08:28→17:31)
[2019-04-21 08:49] LABS: ADD MAN DIFF? NO
[2019-04-21 08:52] LABS: WHITE BLOOD COUNT 13.5 10^3/ul (4.8-10.8)
[2019-04-21 08:52] LABS: BASOPHIL # 0.1 10^3/ul (0.0-0.1); BASOPHILS % 0.7 % (0.0-2.0); EOSINOPHILS # 0.2 10^3/ul (0.0-0.5); EOSINOPHILS % 1.7 % (0.0-7.0); HEMATOCRIT 33.1 % (37.0-47.0); HEMOGLOBIN 9.9 g/dl (12.0-16.0); LYMPHOCYTES # 1.9 10^3/ul (0.8-2.9); LYMPHOCYTES % 13.9 % (15.0-51.0); MEAN CORPUSCULAR HEMOGLOBIN 25.5 pg (29.0-33.0); MEAN CORPUSCULAR HGB CONC 29.9 g/dl (32.0-37.0); MEAN CORPUSCULAR VOLUME 85.3 fl (82.0-101.0); MEAN PLATELET VOLUME 9.5 fl (7.4-10.4); MONOCYTE # 0.8 10^3/ul (0.3-0.9); MONOCYTES % 5.9 % (0.0-11.0); PLATELET COUNT 360 10^3/UL (140-415); RED BLOOD COUNT 3.88 10^6/ul (4.20-5.40); RED CELL DISTRIBUTION WIDTH 17.9 % (11.5-14.5)
[2019-04-21 09:05] LABS: HEMOGLOBIN A1C 6.1 % (0-5.9)
[2019-04-21 09:14] LABS: ANION GAP 7 (5-13); BLOOD UREA NITROGEN 13 mg/dl (7-20); CALCIUM 9.3 mg/dl (8.4-10.2); CARBON DIOXIDE 24 mmol/L (21-31); CHLORIDE 106 mmol/L (97-110); CREATININE 1.12 mg/dl (0.44-1.00); Estimated GFR 49 mL/min (>60); GLUCOSE 101 mg/dl (70-220); POTASSIUM 4.3 mmol/L (3.5-5.1); SODIUM 137 mmol/L (135-144)
[2019-04-21 09:15] LABS: CHOLESTEROL 152 mg/dl (100-200)
[2019-04-21 09:15] LABS: CHOL/HDL RATIO 4.3 RATIO; HDL CHOLESTEROL 35 mg/dl (35-98); LDL CHOLESTEROL,CALCULATED 66 mg/dl; TRIGLYCERIDES 253 mg/dl (0-149)
[2019-04-21 09:50] LABS: MAGNESIUM 1.7 mg/dl (1.7-2.5)
[2019-04-21] MEDS: ATORVASTATIN 40 MG TAB PO (21:04)
[2019-04-21] MEDS: ONDANSETRON 4 MG INJ IV (21:45)
[2019-04-22] MEDS: PANTOPRAZOLE (EC) 40 MG TAB PO ×2 (05:32→17:11)
[2019-04-22 05:33] LABS: ADD MAN DIFF? NO
[2019-04-22] MEDS: HEPARIN 5,000 UNIT/1 ML VIAL SC ×3 (05:33→20:32)
[2019-04-22 05:47] LABS: WHITE BLOOD COUNT 13.5 10^3/ul (4.8-10.8)
[2019-04-22 05:47] LABS: BASOPHIL # 0.1 10^3/ul (0.0-0.1); BASOPHILS % 0.8 % (0.0-2.0); EOSINOPHILS # 0.4 10^3/ul (0.0-0.5); EOSINOPHILS % 2.7 % (0.0-7.0); HEMATOCRIT 33.5 % (37.0-47.0); HEMOGLOBIN 10.1 g/dl (12.0-16.0); LYMPHOCYTES # 1.1 10^3/ul (0.8-2.9); LYMPHOCYTES % 8.2 % (15.0-51.0); MEAN CORPUSCULAR HEMOGLOBIN 25.8 pg (29.0-33.0); MEAN CORPUSCULAR HGB CONC 30.1 g/dl (32.0-37.0); MEAN CORPUSCULAR VOLUME 85.7 fl (82.0-101.0); MEAN PLATELET VOLUME 9.9 fl (7.4-10.4); MONOCYTE # 0.7 10^3/ul (0.3-0.9); MONOCYTES % 5.3 % (0.0-11.0); NEUTROPHIL # 10.6 10^3/ul (1.6-7.5); NEUTROPHILS % 78.3 % (39.0-77.0); PLATELET COUNT 399 10^3/UL (140-415); RED BLOOD COUNT 3.91 10^6/ul (4.20-5.40)
[2019-04-22 05:59] LABS: ALANINE AMINOTRANSFERASE 19 IU/L (13-69); ALBUMIN 3.1 g/dl (3.3-4.9); ALBUMIN/GLOBULIN RATIO 1.03; ALKALINE PHOSPHATASE 111 IU/L (42-121); ANION GAP 7 (5-13); ASPARTATE AMINO TRANSFERASE 13 IU/L (15-46); BILIRUBIN,INDIRECT 0.4 mg/dl (0-1.1); BILIRUBIN,TOTAL 0.4 mg/dl (0.2-1.3); BLOOD UREA NITROGEN 12 mg/dl (7-20); CALCIUM 8.9 mg/dl (8.4-10.2); CARBON DIOXIDE 23 mmol/L (21-31); CHLORIDE 110 mmol/L (97-110); CREATININE 1.19 mg/dl (0.44-1.00); Estimated GFR 46 mL/min (>60); GLUCOSE 113 mg/dl (70-220); SODIUM 140 mmol/L (135-144); TOTAL PROTEIN 6.1 g/dl (6.1-8.1)
[2019-04-22] MEDS: ACETAMINOPHEN 325 MG TAB PO (20:24)
[2019-04-22] MEDS: MEROPENEM 1 GM/50ML(PMX) 50 ML IVPB (20:25)
[2019-04-22] MEDS: ATORVASTATIN 40 MG TAB PO (20:35)
[2019-04-23] MEDS: hydrALAzine 20 MG INJ IV (02:54)
[2019-04-23] MEDS: PANTOPRAZOLE (EC) 40 MG TAB PO ×2 (05:43→17:23)
[2019-04-23] MEDS: HEPARIN 5,000 UNIT/1 ML VIAL SC ×3 (05:45→21:54)
[2019-04-23] MEDS: MEROPENEM 1 GM/50ML(PMX) 50 ML IVPB (09:30)
[2019-04-23] MEDS: metroNIDAZOLE 500 MG TAB PO ×2 (13:41→21:45)
[2019-04-23] MEDS: CIPROFLOXACIN 500 MG TAB PO (17:24)
[2019-04-23] MEDS: ATORVASTATIN 40 MG TAB PO (21:45)
[2019-04-23] MEDS: ONDANSETRON 4 MG INJ IV (21:45)
[2019-04-23] MEDS: NACL 0.9% 3 ML SYG IV (22:58)
[2019-04-23] MEDS: LORAZEPAM 0.5 MG TAB PO (22:58)
[2019-04-23] MEDS ORDERED: traMADol 50 MG TAB PO (23:30)
[2019-04-24] MEDS: PANTOPRAZOLE (EC) 40 MG TAB PO (06:39)
[2019-04-24] MEDS: HEPARIN 5,000 UNIT/1 ML VIAL SC ×2 (06:41→14:02)
[2019-04-24] MEDS: metroNIDAZOLE 500 MG TAB PO (09:42)
[2019-04-24] MEDS: CIPROFLOXACIN 500 MG TAB PO (09:42)
[2019-04-24] MEDS: CEPHALEXIN 500 MG CAP PO (13:58)
[2019-04-24] MEDS: ONDANSETRON 4 MG INJ IV (14:00)
== END 2019-04-24 14:58 | disposition home or self-care (01) | DRG 690 ==
LOC: E/R 20:32 → MS1 23:44
DX: N39.0 Urinary tract infection, site not specified (principal); Z68.41 Body mass index [BMI] 40.0-44.9, adult; E66.01 Morbid (severe) obesity due to excess calories; E11.9 Type 2 diabetes mellitus without complications; E78.5 Hyperlipidemia, unspecified; I10 Essential (primary) hypertension; Z90.49 Acquired absence of other specified parts of digestive tract; Z87.891 Personal history of nicotine dependence
CPT/HCPCS: 36415; 71045; 74176; 80048; 80053; 80061; 81001; 83036; 83690; 83735; 84443; 85025; 87045; 87075; 87086; 87177; 87205; 96374; 96375; 99285-25

== ENCOUNTER 2019-04-26 14:16 | Inpatient (IN) | payer MEDICARE, OTHER ==
[2019-04-26 17:35] LABS: ADD MAN DIFF? NO
[2019-04-26] MEDS: ONDANSETRON 4 MG INJ IV ×2 (17:35→23:06)
[2019-04-26] MEDS: KETOROLAC 15 MG INJ IV (17:35)
[2019-04-26] MEDS: LIDOCAINE/MYLANTA 40 ML BTL PO (17:35)
[2019-04-26] MEDS: SOD CHLORIDE 0.9% 1,000 ML IV (17:35)
[2019-04-26] MEDS: ALPRAZOLAM 0.25 MG TAB PO (17:36)
[2019-04-26] MEDS: BELLADONNA/PHENOBARBITAL TAB PO (17:36)
[2019-04-26 17:38] LABS: WHITE BLOOD COUNT 17.6 10^3/ul (4.8-10.8)
[2019-04-26 17:38] LABS: BASOPHIL # 0.1 10^3/ul (0.0-0.1); BASOPHILS % 0.7 % (0.0-2.0); EOSINOPHILS # 0.9 10^3/ul (0.0-0.5); EOSINOPHILS % 4.8 % (0.0-7.0); HEMATOCRIT 35.9 % (37.0-47.0); LYMPHOCYTES # 2.9 10^3/ul (0.8-2.9); LYMPHOCYTES % 16.6 % (15.0-51.0); MEAN CORPUSCULAR HEMOGLOBIN 25.7 pg (29.0-33.0); MEAN CORPUSCULAR HGB CONC 30.6 g/dl (32.0-37.0); MEAN CORPUSCULAR VOLUME 83.9 fl (82.0-101.0); MEAN PLATELET VOLUME 9.9 fl (7.4-10.4); MONOCYTE # 1.1 10^3/ul (0.3-0.9); MONOCYTES % 6.5 % (0.0-11.0); NEUTROPHIL # 11.9 10^3/ul (1.6-7.5); NEUTROPHILS % 67.6 % (39.0-77.0); PLATELET COUNT 403 10^3/UL (140-415); RED BLOOD COUNT 4.28 10^6/ul (4.20-5.40); RED CELL DISTRIBUTION WIDTH 17.7 % (11.5-14.5)
[2019-04-26 17:57] LABS: ALANINE AMINOTRANSFERASE 23 IU/L (13-69); ALBUMIN 3.7 g/dl (3.3-4.9); ALBUMIN/GLOBULIN RATIO 1.08; ALKALINE PHOSPHATASE 122 IU/L (42-121); ANION GAP 12 (5-13); ASPARTATE AMINO TRANSFERASE 30 IU/L (15-46); BILIRUBIN,INDIRECT 0.5 mg/dl (0-1.1); BILIRUBIN,TOTAL 0.5 mg/dl (0.2-1.3); BLOOD UREA NITROGEN 11 mg/dl (7-20); CALCIUM 9.9 mg/dl (8.4-10.2); CARBON DIOXIDE 18 mmol/L (21-31); CHLORIDE 106 mmol/L (97-110); CREATININE 1.21 mg/dl (0.44-1.00); Estimated GFR 45 mL/min (>60); GLUCOSE 108 mg/dl (70-220); LIPASE 64 U/L (23-300); POTASSIUM 3.9 mmol/L (3.5-5.1); SODIUM 136 mmol/L (135-144); TOTAL PROTEIN 7.1 g/dl (6.1-8.1)
[2019-04-26 18:10] LABS: ADD UMIC YES; UR ASCORBIC ACID NEGATIVE (NEGATIVE); UR BACTERIA FEW /HPF (NONE SEEN); UR BILIRUBIN (Dip) NEGATIVE (NEGATIVE); UR BLOOD (Dip) NEGATIVE (NEGATIVE); UR CLARITY SLIGHTLY CLOUDY (CLEAR); UR COLOR YELLOW (YELLOW); UR GLUCOSE (Dip) NEGATIVE (NEGATIVE); UR KETONES (Dip) 1+ mg/dL (NEGATIVE); UR LEUKOCYTE ESTERASE (Dip) 2+ Leu/ul (NEGATIVE); UR NITRITE (Dip) NEGATIVE (NEGATIVE); UR RBC 4 /HPF (0-5); UR SQUAMOUS EPITHELIAL CELL MODERATE /HPF (FEW); UR TOTAL PROTEIN (Dip) 2+ mg/dl (NEGATIVE); UR UROBILINOGEN (Dip) NEGATIVE (NEGATIVE); UR WBC 17 /HPF (0-5)
[2019-04-26] MEDS: ENALAPRILAT 1.25 MG INJ IV (18:16)
[2019-04-26] MEDS: CEFEPIME 1GM/50 ML (PMX) 50 ML IVPB (18:51)
[2019-04-26] MEDS ORDERED: BISACODYL (EC) 5 MG TAB PO (20:00)
[2019-04-26] MEDS ORDERED: NACL 0.9% 3 ML SYG IV (20:00)
[2019-04-26] MEDS ORDERED: GLUCAGON 1 MG INJ IM (20:30)
[2019-04-26] MEDS ORDERED: GLUCOSE GEL 15 GRAM TUBE BUCCAL (20:30)
[2019-04-26] MEDS ORDERED: GLUCOSE GEL 15 GRAM TUBE PO ×2 (20:30)
[2019-04-26] MEDS ORDERED: DEXTROSE 50% 50 ML SYRINGE IV ×2 (20:30)
[2019-04-26] MEDS: INSULIN ASPART [NOVOLOG] 3 ML PEN SC (21:30)
[2019-04-26] MEDS: MEROPENEM 1 GM/50ML(PMX) 50 ML IVPB (23:02)
[2019-04-26] MEDS: L ACIDOPHIL/B LACTIS/B LONGUM CAPSULE PO (23:03)
[2019-04-26] MEDS: ATORVASTATIN 40 MG TAB PO (23:03)
[2019-04-26] MEDS: HEPARIN 5,000 UNIT/1 ML VIAL SC (23:03)
[2019-04-27] MEDS: INSULIN ASPART [NOVOLOG] 3 ML PEN SC ×3 (00:23→21:00)
[2019-04-27] MEDS ORDERED: ACCU-CHEK XX (02:00)
[2019-04-27] MEDS ORDERED: PENDING SANTYL ORDER FOR WOUND CARE XX (05:00)
[2019-04-27] MEDS: HEPARIN 5,000 UNIT/1 ML VIAL SC ×3 (05:18→21:22)
[2019-04-27 06:02] LABS: ADD MAN DIFF? NO
[2019-04-27 06:13] LABS: WHITE BLOOD COUNT 12.6 10^3/ul (4.8-10.8)
[2019-04-27 06:13] LABS: BASOPHIL # 0.1 10^3/ul (0.0-0.1); BASOPHILS % 0.5 % (0.0-2.0); EOSINOPHILS # 0.9 10^3/ul (0.0-0.5); EOSINOPHILS % 7.5 % (0.0-7.0); HEMATOCRIT 29.6 % (37.0-47.0); HEMOGLOBIN 8.9 g/dl (12.0-16.0); LYMPHOCYTES # 1.8 10^3/ul (0.8-2.9); LYMPHOCYTES % 13.9 % (15.0-51.0); MEAN CORPUSCULAR HEMOGLOBIN 25.6 pg (29.0-33.0); MEAN CORPUSCULAR HGB CONC 30.1 g/dl (32.0-37.0); MEAN CORPUSCULAR VOLUME 85.3 fl (82.0-101.0); MEAN PLATELET VOLUME 9.8 fl (7.4-10.4); MONOCYTE # 0.9 10^3/ul (0.3-0.9); MONOCYTES % 7.2 % (0.0-11.0); NEUTROPHIL # 8.4 10^3/ul (1.6-7.5); NEUTROPHILS % 66.7 % (39.0-77.0); PLATELET COUNT 354 10^3/UL (140-415); RED BLOOD COUNT 3.47 10^6/ul (4.20-5.40); RED CELL DISTRIBUTION WIDTH 17.6 % (11.5-14.5)
[2019-04-27 06:43] LABS: ALANINE AMINOTRANSFERASE 19 IU/L (13-69); ALBUMIN 2.8 g/dl (3.3-4.9); ALKALINE PHOSPHATASE 93 IU/L (42-121); ANION GAP 7 (5-13); ASPARTATE AMINO TRANSFERASE 19 IU/L (15-46); BILIRUBIN,INDIRECT 0.4 mg/dl (0-1.1); BILIRUBIN,TOTAL 0.4 mg/dl (0.2-1.3); BLOOD UREA NITROGEN 11 mg/dl (7-20); CARBON DIOXIDE 20 mmol/L (21-31); CHLORIDE 109 mmol/L (97-110); CREATININE 1.27 mg/dl (0.44-1.00); Estimated GFR 42 mL/min (>60); GLUCOSE 96 mg/dl (70-220); MAGNESIUM 1.6 mg/dl (1.7-2.5); POTASSIUM 3.7 mmol/L (3.5-5.1); SODIUM 136 mmol/L (135-144); TOTAL PROTEIN 5.6 g/dl (6.1-8.1)
[2019-04-27] MEDS: ESCITALOPRAM 10 MG TAB PO (08:52)
[2019-04-27] MEDS: MEROPENEM 1 GM/50ML(PMX) 50 ML IVPB (08:52)
[2019-04-27] MEDS: L ACIDOPHIL/B LACTIS/B LONGUM CAPSULE PO ×2 (08:53→21:21)
[2019-04-27] MEDS: PANTOPRAZOLE (EC) 40 MG TAB PO (08:53)
[2019-04-27] MEDS: ONDANSETRON 4 MG INJ IV (12:15)
[2019-04-27] MEDS: SOD CHLORIDE 0.45% 1,000 ML IV (14:56)
[2019-04-27] MEDS: MAGNESIUM OXIDE 400 MG TAB PO (15:31)
[2019-04-27] MEDS ORDERED: TOBRAMYCIN IV PER PHARMACY XX (16:00)
[2019-04-27] MEDS: SUCRALFATE (100 MG/ML) 10ML CUP PO ×2 (17:36→21:21)
[2019-04-27] MEDS: FAMOTIDINE 20 MG INJ IV (17:36)
[2019-04-27] MEDS: TOBRAMYCIN 80 MG in SOD CHLORIDE 0.9% 50 ML IVPB (18:46)
[2019-04-27] MEDS: ATORVASTATIN 40 MG TAB PO (21:21)
[2019-04-27] MEDS: NYSTATIN 30 GM POWDER BTL TOP (21:21)
[2019-04-28] MEDS: ACCU-CHEK XX (00:41)
[2019-04-28 05:32] LABS: ADD MAN DIFF? NO
[2019-04-28 05:51] LABS: WHITE BLOOD COUNT 13.2 10^3/ul (4.8-10.8)
[2019-04-28 05:51] LABS: BASOPHIL # 0.1 10^3/ul (0.0-0.1); BASOPHILS % 0.5 % (0.0-2.0); EOSINOPHILS % 7.2 % (0.0-7.0); HEMATOCRIT 30.3 % (37.0-47.0); LYMPHOCYTES # 1.4 10^3/ul (0.8-2.9); LYMPHOCYTES % 10.2 % (15.0-51.0); MEAN CORPUSCULAR HEMOGLOBIN 25.5 pg (29.0-33.0); MEAN CORPUSCULAR HGB CONC 29.7 g/dl (32.0-37.0); MEAN CORPUSCULAR VOLUME 85.8 fl (82.0-101.0); MEAN PLATELET VOLUME 10.2 fl (7.4-10.4); MONOCYTE # 0.8 10^3/ul (0.3-0.9); MONOCYTES % 6.3 % (0.0-11.0); NEUTROPHIL # 9.4 10^3/ul (1.6-7.5); NEUTROPHILS % 71.5 % (39.0-77.0); PLATELET COUNT 342 10^3/UL (140-415); RED BLOOD COUNT 3.53 10^6/ul (4.20-5.40); RED CELL DISTRIBUTION WIDTH 17.8 % (11.5-14.5)
[2019-04-28] MEDS: HEPARIN 5,000 UNIT/1 ML VIAL SC ×3 (05:57→23:14)
[2019-04-28 06:20] LABS: ANION GAP 5 (5-13); BLOOD UREA NITROGEN 9 mg/dl (7-20); CALCIUM 8.9 mg/dl (8.4-10.2); CARBON DIOXIDE 22 mmol/L (21-31); CHLORIDE 106 mmol/L (97-110); CREATININE 1.06 mg/dl (0.44-1.00); Estimated GFR 52 mL/min (>60); GLUCOSE 103 mg/dl (70-220); MAGNESIUM 1.7 mg/dl (1.7-2.5); PHOSPHORUS 2.7 mg/dl (2.5-4.9); POTASSIUM 3.8 mmol/L (3.5-5.1); SODIUM 133 mmol/L (135-144)
[2019-04-28] MEDS: INSULIN ASPART [NOVOLOG] 3 ML PEN SC ×4 (08:00→20:28)
[2019-04-28] MEDS: PANTOPRAZOLE (EC) 40 MG TAB PO (08:09)
[2019-04-28] MEDS: L ACIDOPHIL/B LACTIS/B LONGUM CAPSULE PO ×2 (08:45→20:28)
[2019-04-28] MEDS: morphine 2 MG INJ IV ×2 (08:45→12:27)
[2019-04-28] MEDS: FAMOTIDINE 20 MG INJ IV (08:45)
[2019-04-28] MEDS: ESCITALOPRAM 10 MG TAB PO (08:46)
[2019-04-28] MEDS: SOD CHLORIDE 0.45% 1,000 ML IV ×2 (10:00→11:04)
[2019-04-28] MEDS: NYSTATIN 30 GM POWDER BTL TOP ×2 (10:58→20:28)
[2019-04-28] MEDS: SUCRALFATE (100 MG/ML) 10ML CUP PO ×4 (10:58→20:27)
[2019-04-28] MEDS: TOBRAMYCIN 80 MG in SOD CHLORIDE 0.9% 50 ML IVPB (16:54)
[2019-04-28] MEDS: ATORVASTATIN 40 MG TAB PO (20:27)
[2019-04-29] MEDS: ACCU-CHEK XX (02:00)
[2019-04-29] MEDS: SOD CHLORIDE 0.45% 1,000 ML IV ×2 (05:23→23:44)
[2019-04-29] MEDS: HEPARIN 5,000 UNIT/1 ML VIAL SC ×3 (05:24→21:13)
[2019-04-29 07:33] LABS: ABNORMAL IP MESSAGE 1; HEMATOCRIT 30.1 % (37.0-47.0); HEMOGLOBIN 9.1 g/dl (12.0-16.0); MEAN CORPUSCULAR HEMOGLOBIN 25.9 pg (29.0-33.0); MEAN CORPUSCULAR HGB CONC 30.2 g/dl (32.0-37.0); MEAN CORPUSCULAR VOLUME 85.5 fl (82.0-101.0); MEAN PLATELET VOLUME 9.7 fl (7.4-10.4); PLATELET COUNT 374 10^3/UL (140-415); RED BLOOD COUNT 3.52 10^6/ul (4.20-5.40); RED CELL DISTRIBUTION WIDTH 17.4 % (11.5-14.5)
[2019-04-29 07:33] LABS: WHITE BLOOD COUNT 10.3 10^3/ul (4.8-10.8)
[2019-04-29 07:36] LABS: ADD MAN DIFF? YES; POSITIVE DIFF @See below
[2019-04-29] MEDS: INSULIN ASPART [NOVOLOG] 3 ML PEN SC ×4 (08:00→20:32)
[2019-04-29 08:03] LABS: ANION GAP 4 (5-13); BLOOD UREA NITROGEN 8 mg/dl (7-20); CALCIUM 8.9 mg/dl (8.4-10.2); CARBON DIOXIDE 24 mmol/L (21-31); CHLORIDE 108 mmol/L (97-110); CREATININE 0.99 mg/dl (0.44-1.00); Estimated GFR 56 mL/min (>60); GLUCOSE 109 mg/dl (70-220); MAGNESIUM 1.7 mg/dl (1.7-2.5); PHOSPHORUS 2.7 mg/dl (2.5-4.9); SODIUM 136 mmol/L (135-144)
[2019-04-29 08:21] LABS: ANISOCYTOSIS 1+ (0-0); EOSINOPHILS % (M) 6 % (0-7); LYMPHOCYTES #M 2.5 10^3/ul (0.8-2.9); LYMPHOCYTES % (M) 25 % (15-51); MICROCYTOSIS 1+ (0-0); MONOCYTE #M 0.2 10^3/ul (0.3-0.9); MONOCYTES % (M) 2 % (0-11); MYELOCYTES #M 0.3 10^3/ul (0.0-0.0); MYELOCYTES % (M) 3 % (0-0); PLATELET ESTIMATE NORMAL; SEGMENTED NEUTROPHILS (M) % 64 % (39-77); SMUDGE%M 8 % (0-0)
[2019-04-29] MEDS: FAMOTIDINE 20 MG INJ IV ×2 (08:55→20:31)
[2019-04-29] MEDS: PANTOPRAZOLE (EC) 40 MG TAB PO (08:55)
[2019-04-29] MEDS: NYSTATIN 30 GM POWDER BTL TOP ×2 (08:55→20:33)
[2019-04-29] MEDS: SUCRALFATE (100 MG/ML) 10ML CUP PO ×4 (08:55→20:31)
[2019-04-29] MEDS: ESCITALOPRAM 10 MG TAB PO (08:55)
[2019-04-29] MEDS: L ACIDOPHIL/B LACTIS/B LONGUM CAPSULE PO ×2 (08:55→20:31)
[2019-04-29] MEDS: [UNRECOGNIZED DRUG - OTHER] XX (16:46)
[2019-04-29] MEDS: METOCLOPRAMIDE 10 MG INJ IV ×2 (17:33→23:42)
[2019-04-29] MEDS: TOBRAMYCIN 80 MG in SOD CHLORIDE 0.9% 50 ML IVPB (17:33)
[2019-04-29] MEDS: [UNRECOGNIZED DRUG - OTHER] XX (18:00)
[2019-04-29] MEDS: ATORVASTATIN 40 MG TAB PO (20:31)
[2019-04-30] MEDS: ACCU-CHEK XX (02:00)
[2019-04-30] MEDS: METOCLOPRAMIDE 10 MG INJ IV (06:05)
[2019-04-30] MEDS: HEPARIN 5,000 UNIT/1 ML VIAL SC ×3 (06:06→22:00)
[2019-04-30 06:38] LABS: ADD MAN DIFF? NO
[2019-04-30 06:41] LABS: WHITE BLOOD COUNT 12.8 10^3/ul (4.8-10.8)
[2019-04-30 06:41] LABS: BASOPHIL # 0.1 10^3/ul (0.0-0.1); BASOPHILS % 0.5 % (0.0-2.0); EOSINOPHILS # 0.3 10^3/ul (0.0-0.5); EOSINOPHILS % 2.1 % (0.0-7.0); HEMATOCRIT 31.1 % (37.0-47.0); HEMOGLOBIN 9.3 g/dl (12.0-16.0); LYMPHOCYTES # 2.3 10^3/ul (0.8-2.9); LYMPHOCYTES % 17.7 % (15.0-51.0); MEAN CORPUSCULAR HEMOGLOBIN 25.5 pg (29.0-33.0); MEAN CORPUSCULAR HGB CONC 29.9 g/dl (32.0-37.0); MEAN CORPUSCULAR VOLUME 85.4 fl (82.0-101.0); MEAN PLATELET VOLUME 10.3 fl (7.4-10.4); MONOCYTE # 0.8 10^3/ul (0.3-0.9); MONOCYTES % 6.4 % (0.0-11.0); NEUTROPHIL # 8.8 10^3/ul (1.6-7.5); NEUTROPHILS % 68.7 % (39.0-77.0); PLATELET COUNT 407 10^3/UL (140-415); RED BLOOD COUNT 3.64 10^6/ul (4.20-5.40); RED CELL DISTRIBUTION WIDTH 17.8 % (11.5-14.5)
[2019-04-30 07:17] LABS: ANION GAP 5 (5-13); BLOOD UREA NITROGEN 9 mg/dl (7-20); CALCIUM 8.7 mg/dl (8.4-10.2); CARBON DIOXIDE 24 mmol/L (21-31); CHLORIDE 109 mmol/L (97-110); CREATININE 0.93 mg/dl (0.44-1.00); Estimated GFR > 60 mL/min (>60); GLUCOSE 112 mg/dl (70-220); MAGNESIUM 1.8 mg/dl (1.7-2.5); PHOSPHORUS 2.8 mg/dl (2.5-4.9); SODIUM 138 mmol/L (135-144)
[2019-04-30 07:18] LABS: POTASSIUM 4.2 mmol/L (3.5-5.1)
[2019-04-30] MEDS: INSULIN ASPART [NOVOLOG] 3 ML PEN SC ×4 (08:00→20:15)
[2019-04-30] MEDS: L ACIDOPHIL/B LACTIS/B LONGUM CAPSULE PO ×2 (08:33→20:11)
[2019-04-30] MEDS: ESCITALOPRAM 10 MG TAB PO (08:33)
[2019-04-30] MEDS: PANTOPRAZOLE (EC) 40 MG TAB PO (08:33)
[2019-04-30] MEDS: SUCRALFATE (100 MG/ML) 10ML CUP PO ×4 (08:33→20:11)
[2019-04-30] MEDS: NYSTATIN 30 GM POWDER BTL TOP ×2 (08:34→20:15)
[2019-04-30] MEDS: BISACODYL (EC) 5 MG TAB PO (09:44)
[2019-04-30] MEDS: AMLODIPINE 5 MG TAB PO (09:44)
[2019-04-30] MEDS: TOBRAMYCIN 80 MG in SOD CHLORIDE 0.9% 50 ML IVPB (17:31)
[2019-04-30] MEDS: POLYETHYLENE GLYCOL 3350 119 GM POWDER PO ×2 (18:33→18:34)
[2019-04-30] MEDS: MAGNESIUM CITRATE 300 ML BTL PO (18:34)
[2019-04-30] MEDS: SOD CHLORIDE 0.45% 1,000 ML IV (18:34)
[2019-04-30] MEDS: FAMOTIDINE 20 MG INJ IV (20:10)
[2019-04-30] MEDS: ATORVASTATIN 40 MG TAB PO (20:11)
[2019-05-01] MEDS: hydrALAzine 20 MG INJ IV ×2 (01:39→20:00)
[2019-05-01] MEDS: INSULIN ASPART [NOVOLOG] 3 ML PEN SC ×5 (05:00→21:00)
[2019-05-01 05:31] LABS: ADD MAN DIFF? NO
[2019-05-01 05:37] LABS: WHITE BLOOD COUNT 12.8 10^3/ul (4.8-10.8)
[2019-05-01 05:37] LABS: BASOPHIL # 0.1 10^3/ul (0.0-0.1); BASOPHILS % 0.6 % (0.0-2.0); EOSINOPHILS # 0.2 10^3/ul (0.0-0.5); EOSINOPHILS % 1.6 % (0.0-7.0); HEMATOCRIT 31.6 % (37.0-47.0); HEMOGLOBIN 9.5 g/dl (12.0-16.0); LYMPHOCYTES # 2.3 10^3/ul (0.8-2.9); LYMPHOCYTES % 17.7 % (15.0-51.0); MEAN CORPUSCULAR HEMOGLOBIN 25.5 pg (29.0-33.0); MEAN CORPUSCULAR HGB CONC 30.1 g/dl (32.0-37.0); MEAN CORPUSCULAR VOLUME 84.9 fl (82.0-101.0); MEAN PLATELET VOLUME 9.8 fl (7.4-10.4); MONOCYTES % 7.9 % (0.0-11.0); NEUTROPHIL # 8.7 10^3/ul (1.6-7.5); NEUTROPHILS % 68.6 % (39.0-77.0); PLATELET COUNT 403 10^3/UL (140-415); RED BLOOD COUNT 3.72 10^6/ul (4.20-5.40); RED CELL DISTRIBUTION WIDTH 17.7 % (11.5-14.5)
[2019-05-01 05:54] LABS: INR 0.86; PROTIME 11.8 Sec (11.9-14.9); PT RATIO 0.9
[2019-05-01] MEDS: HEPARIN 5,000 UNIT/1 ML VIAL SC ×3 (06:00→21:15)
[2019-05-01] MEDS: POLYETHYLENE GLYCOL 3350 119 GM POWDER PO (06:00)
[2019-05-01 06:09] LABS: ANION GAP 7 (5-13); BLOOD UREA NITROGEN 8 mg/dl (7-20); CALCIUM 9.2 mg/dl (8.4-10.2); CARBON DIOXIDE 23 mmol/L (21-31); CHLORIDE 112 mmol/L (97-110); CREATININE 0.99 mg/dl (0.44-1.00); Estimated GFR 56 mL/min (>60); GLUCOSE 100 mg/dl (70-220); MAGNESIUM 1.9 mg/dl (1.7-2.5); PHOSPHORUS 2.9 mg/dl (2.5-4.9); SODIUM 142 mmol/L (135-144)
[2019-05-01] MEDS: PANTOPRAZOLE (EC) 40 MG TAB PO (07:30)
[2019-05-01] MEDS: ESCITALOPRAM 10 MG TAB PO (08:22)
[2019-05-01] MEDS: BISACODYL (EC) 5 MG TAB PO (08:22)
[2019-05-01] MEDS: AMLODIPINE 5 MG TAB PO ×2 (08:22→11:33)
[2019-05-01] MEDS: NYSTATIN 30 GM POWDER BTL TOP ×2 (08:23→20:14)
[2019-05-01] MEDS: SUCRALFATE (100 MG/ML) 10ML CUP PO ×4 (08:25→20:01)
[2019-05-01] MEDS: L ACIDOPHIL/B LACTIS/B LONGUM CAPSULE PO ×2 (08:25→20:01)
[2019-05-01] MEDS ORDERED: EPHEDrine 25 MG/5 ML SYG IV (16:00)
[2019-05-01] MEDS ORDERED: hydrALAzine 20 MG INJ IV (16:00)
[2019-05-01] MEDS ORDERED: LABETALOL HCL 20MG INJ IV (16:00)
[2019-05-01] MEDS ORDERED: ONDANSETRON 4 MG INJ IV (16:00)
[2019-05-01] MEDS ORDERED: PROPOFOL 200 MG INJ (18:02)
[2019-05-01] MEDS: TOBRAMYCIN 80 MG in SOD CHLORIDE 0.9% 50 ML IVPB (20:01)
[2019-05-01] MEDS: FAMOTIDINE 20 MG INJ IV (20:01)
[2019-05-01] MEDS: SOD CHLORIDE 0.45% 1,000 ML IV (20:01)
[2019-05-01] MEDS: ATORVASTATIN 40 MG TAB PO (20:03)
[2019-05-01] MEDS: PROPOFOL 40 ML (20:50)
[2019-05-01] MEDS: LIDOCAINE 2% (SDV) 5 ML INJ (20:52)
[2019-05-01] MEDS ORDERED: LORAZEPAM 1 MG TAB PO (22:30)
[2019-05-01] MEDS ORDERED: LORAZEPAM 0.5 MG TAB (22:37)
[2019-05-01] MEDS ORDERED: LORAZEPAM 0.5 MG TAB PO (23:00)
[2019-05-02 04:50] LABS: ADD MAN DIFF? NO
[2019-05-02 05:00] LABS: BASOPHIL # 0.1 10^3/ul (0.0-0.1); BASOPHILS % 0.9 % (0.0-2.0); EOSINOPHILS # 0.2 10^3/ul (0.0-0.5); EOSINOPHILS % 1.6 % (0.0-7.0); HEMATOCRIT 32.3 % (37.0-47.0); HEMOGLOBIN 9.7 g/dl (12.0-16.0); LYMPHOCYTES # 2.5 10^3/ul (0.8-2.9); LYMPHOCYTES % 18.1 % (15.0-51.0); MEAN CORPUSCULAR HEMOGLOBIN 25.2 pg (29.0-33.0); MEAN CORPUSCULAR VOLUME 83.9 fl (82.0-101.0); MEAN PLATELET VOLUME 9.6 fl (7.4-10.4); MONOCYTES % 7.4 % (0.0-11.0); NEUTROPHIL # 9.5 10^3/ul (1.6-7.5); NEUTROPHILS % 67.6 % (39.0-77.0); NUCLEATED RED BLOOD CELLS% 0.1 /100WBC (0.0-0.0); PLATELET COUNT 435 10^3/UL (140-415); RED BLOOD COUNT 3.85 10^6/ul (4.20-5.40); RED CELL DISTRIBUTION WIDTH 17.7 % (11.5-14.5)
[2019-05-02] MEDS ORDERED: LOPERAMIDE 2 MG CAP PO ×2 (05:00→12:30)
[2019-05-02] MEDS: PANTOPRAZOLE (EC) 40 MG TAB PO (05:14)
[2019-05-02] MEDS: HEPARIN 5,000 UNIT/1 ML VIAL SC ×3 (05:17→22:26)
[2019-05-02 06:25] LABS: ANION GAP 10 (5-13); BLOOD UREA NITROGEN 7 mg/dl (7-20); CALCIUM 9.1 mg/dl (8.4-10.2); CARBON DIOXIDE 20 mmol/L (21-31); CHLORIDE 110 mmol/L (97-110); CREATININE 0.84 mg/dl (0.44-1.00); Estimated GFR > 60 mL/min (>60); GLUCOSE 90 mg/dl (70-220); MAGNESIUM 1.7 mg/dl (1.7-2.5); PHOSPHORUS 3.6 mg/dl (2.5-4.9); POTASSIUM 3.7 mmol/L (3.5-5.1); SODIUM 140 mmol/L (135-144)
[2019-05-02] MEDS: INSULIN ASPART [NOVOLOG] 3 ML PEN SC ×4 (08:00→20:26)
[2019-05-02] MEDS: ONDANSETRON 4 MG INJ IV (08:02)
[2019-05-02] MEDS: ESCITALOPRAM 10 MG TAB PO (08:07)
[2019-05-02] MEDS: L ACIDOPHIL/B LACTIS/B LONGUM CAPSULE PO ×2 (08:07→20:25)
[2019-05-02] MEDS: AMLODIPINE 10 MG TAB PO (08:07)
[2019-05-02] MEDS: SUCRALFATE (100 MG/ML) 10ML CUP PO (08:07)
[2019-05-02] MEDS: ACETAMINOPHEN 325 MG TAB PO (08:16)
[2019-05-02] MEDS: LISINOPRIL 10 MG TAB PO (09:29)
[2019-05-02] MEDS: NYSTATIN 30 GM POWDER BTL TOP ×2 (09:30→20:27)
[2019-05-02] MEDS ORDERED: HYOSCYAMINE 0.125 MG SUBL TAB SL (12:30)
[2019-05-02] MEDS: SOD CHLORIDE 0.45% 1,000 ML IV (14:10)
[2019-05-02] MEDS: TOBRAMYCIN 80 MG in SOD CHLORIDE 0.9% 50 ML IVPB (17:45)
[2019-05-02] MEDS: ATORVASTATIN 40 MG TAB PO (20:25)
[2019-05-03 04:58] LABS: WHITE BLOOD COUNT 14.9 10^3/ul (4.8-10.8)
[2019-05-03 04:58] LABS: ADD MAN DIFF? NO; BASOPHIL # 0.1 10^3/ul (0.0-0.1); BASOPHILS % 0.5 % (0.0-2.0); EOSINOPHILS # 0.4 10^3/ul (0.0-0.5); EOSINOPHILS % 2.6 % (0.0-7.0); HEMATOCRIT 31.4 % (37.0-47.0); HEMOGLOBIN 9.4 g/dl (12.0-16.0); LYMPHOCYTES # 2.4 10^3/ul (0.8-2.9); LYMPHOCYTES % 16.1 % (15.0-51.0); MEAN CORPUSCULAR HEMOGLOBIN 25.3 pg (29.0-33.0); MEAN CORPUSCULAR HGB CONC 29.9 g/dl (32.0-37.0); MEAN CORPUSCULAR VOLUME 84.4 fl (82.0-101.0); MEAN PLATELET VOLUME 9.8 fl (7.4-10.4); MONOCYTE # 1.1 10^3/ul (0.3-0.9); NEUTROPHIL # 10.3 10^3/ul (1.6-7.5); NEUTROPHILS % 69.3 % (39.0-77.0); PLATELET COUNT 403 10^3/UL (140-415); RED BLOOD COUNT 3.72 10^6/ul (4.20-5.40); RED CELL DISTRIBUTION WIDTH 17.8 % (11.5-14.5)
[2019-05-03 05:25] LABS: ANION GAP 9 (5-13); BLOOD UREA NITROGEN 6 mg/dl (7-20); CALCIUM 8.8 mg/dl (8.4-10.2); CARBON DIOXIDE 19 mmol/L (21-31); CHLORIDE 105 mmol/L (97-110); CREATININE 0.85 mg/dl (0.44-1.00); Estimated GFR > 60 mL/min (>60); GLUCOSE 86 mg/dl (70-220); MAGNESIUM 1.4 mg/dl (1.7-2.5); PHOSPHORUS 3.2 mg/dl (2.5-4.9); POTASSIUM 3.3 mmol/L (3.5-5.1); SODIUM 133 mmol/L (135-144)
[2019-05-03] MEDS: PANTOPRAZOLE (EC) 40 MG TAB PO (06:00)
[2019-05-03] MEDS: HEPARIN 5,000 UNIT/1 ML VIAL SC ×3 (06:03→21:36)
[2019-05-03] MEDS: ONDANSETRON 4 MG INJ IV (06:07)
[2019-05-03] MEDS: INSULIN ASPART [NOVOLOG] 3 ML PEN SC ×4 (07:44→20:48)
[2019-05-03] MEDS: METOCLOPRAMIDE 10 MG INJ IV ×2 (07:58→17:36)
[2019-05-03] MEDS: DEXTROSE 5%-0.45% NACL 1,000 ML IV (08:03)
[2019-05-03] MEDS: NYSTATIN 30 GM POWDER BTL TOP ×2 (09:20→20:48)
[2019-05-03] MEDS: AMLODIPINE 10 MG TAB PO (09:54)
[2019-05-03] MEDS: LISINOPRIL 10 MG TAB PO (09:54)
[2019-05-03] MEDS: ESCITALOPRAM 10 MG TAB PO (09:54)
[2019-05-03] MEDS: L ACIDOPHIL/B LACTIS/B LONGUM CAPSULE PO ×2 (09:54→20:48)
[2019-05-03] MEDS: MAGNESIUM SULFATE 2 GM/50 ML 50 ML IVPB (10:19)
[2019-05-03] MEDS: POTASSIUM CHLORIDE 100 ML IVPB ×2 (12:17→14:42)
[2019-05-03] MEDS: TOBRAMYCIN 80 MG in SOD CHLORIDE 0.9% 50 ML IVPB (17:36)
[2019-05-03] MEDS: ACETAMINOPHEN 325 MG TAB PO (20:47)
[2019-05-03] MEDS: ATORVASTATIN 40 MG TAB PO (20:48)
[2019-05-03] MEDS: hydrALAzine 20 MG INJ IV (20:52)
[2019-05-04] MEDS: METOCLOPRAMIDE 10 MG INJ IV ×4 (00:44→18:09)
[2019-05-04] MEDS: DEXTROSE 5%-0.45% NACL 1,000 ML IV (05:46)
[2019-05-04] MEDS: PANTOPRAZOLE (EC) 40 MG TAB PO (05:47)
[2019-05-04] MEDS: HEPARIN 5,000 UNIT/1 ML VIAL SC ×3 (05:48→22:11)
[2019-05-04 06:23] LABS: ABNORMAL IP MESSAGE 1; HEMATOCRIT 32.2 % (37.0-47.0); HEMOGLOBIN 9.9 g/dl (12.0-16.0); MEAN CORPUSCULAR HEMOGLOBIN 25.4 pg (29.0-33.0); MEAN CORPUSCULAR HGB CONC 30.7 g/dl (32.0-37.0); MEAN CORPUSCULAR VOLUME 82.8 fl (82.0-101.0); MEAN PLATELET VOLUME 10.2 fl (7.4-10.4); PLATELET COUNT 429 10^3/UL (140-415); RED BLOOD COUNT 3.89 10^6/ul (4.20-5.40); RED CELL DISTRIBUTION WIDTH 17.9 % (11.5-14.5)
[2019-05-04 06:31] LABS: POSITIVE DIFF @See below
[2019-05-04 06:32] LABS: ADD MAN DIFF? YES
[2019-05-04 06:34] LABS: ANION GAP 10 (5-13); BLOOD UREA NITROGEN 7 mg/dl (7-20); CALCIUM 9.3 mg/dl (8.4-10.2); CARBON DIOXIDE 21 mmol/L (21-31); CHLORIDE 103 mmol/L (97-110); Estimated GFR 56 mL/min (>60); GLUCOSE 106 mg/dl (70-220); PHOSPHORUS 3.4 mg/dl (2.5-4.9); POTASSIUM 3.3 mmol/L (3.5-5.1); SODIUM 134 mmol/L (135-144)
[2019-05-04] MEDS: INSULIN ASPART [NOVOLOG] 3 ML PEN SC ×4 (08:00→20:56)
[2019-05-04] MEDS: ONDANSETRON 4 MG INJ IV (08:56)
[2019-05-04] MEDS: AMLODIPINE 10 MG TAB PO (09:11)
[2019-05-04] MEDS: L ACIDOPHIL/B LACTIS/B LONGUM CAPSULE PO ×2 (09:11→20:55)
[2019-05-04] MEDS: ESCITALOPRAM 10 MG TAB PO (09:12)
[2019-05-04] MEDS: LISINOPRIL 10 MG TAB PO (09:12)
[2019-05-04 09:16] LABS: ANISOCYTOSIS 1+ (0-0); BASOPHIL #M 0.1 10^3/ul (0.0-0.0); BASOPHILS % (M) 1 % (0-2); EOSINOPHILS % (M) 9 % (0-7); LYMPHOCYTES #M 2.8 10^3/ul (0.8-2.9); LYMPHOCYTES % (M) 19 % (15-51); METAMYELOCYTES #M 0.1 10^3/ul (0.0-0.0); METAMYELOCYTES %M 1 % (0-0); MICROCYTOSIS 1+ (0-0); MONOCYTE #M 1.6 10^3/ul (0.3-0.9); MONOCYTES % (M) 11 % (0-11); MYELOCYTES #M 0.1 10^3/ul (0.0-0.0); MYELOCYTES % (M) 1 % (0-0); PLATELET ESTIMATE NORMAL; POIKILOCYTOSIS 1+ (0-0); POLYCHROMASIA 2+ (0-0); REACTIVE LYMPHOCYTES #M 0.3 10^3/ul (0.0-0.0); REACTIVE LYMPHOCYTES% (M) 2 % (0-0); SEGMENTED NEUTROPHILS (M) % 56 % (39-77); SMUDGE%M 11 % (0-0)
[2019-05-04] MEDS: NYSTATIN 30 GM POWDER BTL TOP ×2 (09:16→20:56)
[2019-05-04] MEDS: ACETAMINOPHEN 325 MG TAB PO (09:25)
[2019-05-04] MEDS ORDERED: POLYETHYLENE GLYCOL 17 GM PACKET PO (17:00)
[2019-05-04] MEDS ORDERED: METOCLOPRAMIDE 10 MG INJ IV (18:00)
[2019-05-04] MEDS: ATORVASTATIN 40 MG TAB PO (20:56)
[2019-05-05] MEDS: METOCLOPRAMIDE 10 MG INJ IV ×4 (00:16→18:57)
[2019-05-05] MEDS: DEXTROSE 5%-0.45% NACL 1,000 ML IV (00:17)
[2019-05-05] MEDS: PANTOPRAZOLE (EC) 40 MG TAB PO (05:34)
[2019-05-05] MEDS: HEPARIN 5,000 UNIT/1 ML VIAL SC ×3 (05:35→22:13)
[2019-05-05 05:50] LABS: ABNORMAL IP MESSAGE 1; HEMATOCRIT 29.2 % (37.0-47.0); HEMOGLOBIN 8.9 g/dl (12.0-16.0); MEAN CORPUSCULAR HEMOGLOBIN 25.6 pg (29.0-33.0); MEAN CORPUSCULAR HGB CONC 30.5 g/dl (32.0-37.0); MEAN CORPUSCULAR VOLUME 84.1 fl (82.0-101.0); MEAN PLATELET VOLUME 10.1 fl (7.4-10.4); PLATELET COUNT 387 10^3/UL (140-415); RED BLOOD COUNT 3.47 10^6/ul (4.20-5.40); RED CELL DISTRIBUTION WIDTH 17.7 % (11.5-14.5)
[2019-05-05 05:50] LABS: WHITE BLOOD COUNT 15.3 10^3/ul (4.8-10.8)
[2019-05-05 05:56] LABS: ADD MAN DIFF? YES; POSITIVE DIFF @See below
[2019-05-05 06:10] LABS: ALBUMIN 2.5 g/dl (3.3-4.9); ANION GAP 8 (5-13); BLOOD UREA NITROGEN 8 mg/dl (7-20); CALCIUM 8.9 mg/dl (8.4-10.2); CARBON DIOXIDE 19 mmol/L (21-31); CHLORIDE 103 mmol/L (97-110); CREATININE 0.97 mg/dl (0.44-1.00); GLUCOSE 98 mg/dl (70-220); MAGNESIUM 1.7 mg/dl (1.7-2.5); PHOSPHORUS 3.3 mg/dl (2.5-4.9); POTASSIUM 3.3 mmol/L (3.5-5.1); SODIUM 130 mmol/L (135-144)
[2019-05-05] MEDS: INSULIN ASPART [NOVOLOG] 3 ML PEN SC ×4 (08:00→20:48)
[2019-05-05] MEDS: ESCITALOPRAM 10 MG TAB PO (08:48)
[2019-05-05] MEDS: L ACIDOPHIL/B LACTIS/B LONGUM CAPSULE PO ×2 (08:49→20:44)
[2019-05-05] MEDS: AMLODIPINE 10 MG TAB PO (08:49)
[2019-05-05] MEDS: LISINOPRIL 10 MG TAB PO (08:49)
[2019-05-05 09:10] LABS: ANISOCYTOSIS 1+ (0-0); BAND NEUTROPHILS % (M) 7 % (0-4); BASOPHIL #M 0.1 10^3/ul (0.0-0.0); BASOPHILS % (M) 1 % (0-2); EOSINOPHILS % (M) 6 % (0-7); GIANT THROMBO% (M) 1 % (0-0); HYPOCHROMASIA 1+ (0-0); LYMPHOCYTES #M 2.6 10^3/ul (0.8-2.9); LYMPHOCYTES % (M) 17 % (15-51); METAMYELOCYTES #M 0.1 10^3/ul (0.0-0.0); METAMYELOCYTES %M 1 % (0-0); MICROCYTOSIS 1+ (0-0); MONOCYTE #M 1.8 10^3/ul (0.3-0.9); MONOCYTES % (M) 12 % (0-11); PLATELET ESTIMATE NORMAL; POLYCHROMASIA 1+ (0-0); PROMYELOCYTES #M 0.1 10^3/ul (0-0); PROMYELOCYTES % (M) 1 % (0-0); SEG NEUT #M 8.6 10^3/ul (1.6-7.5); SEGMENTED NEUTROPHILS (M) % 55 % (39-77); SMUDGE%M 10 % (0-0)
[2019-05-05] MEDS: NYSTATIN 30 GM POWDER BTL TOP ×2 (09:24→22:12)
[2019-05-05] MEDS: POTASSIUM CHLORIDE 100 ML IVPB ×2 (11:24→13:46)
[2019-05-05 13:08] LABS: HEMOGLOBIN A1C 5.6 % (0-5.9)
[2019-05-05] MEDS: MAGNESIUM SULFATE 2 GM/50 ML 50 ML IVPB (16:34)
[2019-05-05] MEDS: ATORVASTATIN 40 MG TAB PO (20:44)
[2019-05-05] MEDS: ONDANSETRON 4 MG INJ IV (22:12)
[2019-05-06] MEDS: METOCLOPRAMIDE 10 MG INJ IV ×4 (00:39→17:00)
[2019-05-06 05:33] LABS: WHITE BLOOD COUNT 16.2 10^3/ul (4.8-10.8)
[2019-05-06 05:33] LABS: ABNORMAL IP MESSAGE 1; HEMATOCRIT 30.1 % (37.0-47.0); HEMOGLOBIN 9.6 g/dl (12.0-16.0); MEAN CORPUSCULAR HEMOGLOBIN 25.8 pg (29.0-33.0); MEAN CORPUSCULAR HGB CONC 31.9 g/dl (32.0-37.0); MEAN CORPUSCULAR VOLUME 80.9 fl (82.0-101.0); MEAN PLATELET VOLUME 9.7 fl (7.4-10.4); PLATELET COUNT 407 10^3/UL (140-415); RED BLOOD COUNT 3.72 10^6/ul (4.20-5.40); RED CELL DISTRIBUTION WIDTH 17.4 % (11.5-14.5)
[2019-05-06] MEDS: PANTOPRAZOLE (EC) 40 MG TAB PO (05:37)
[2019-05-06] MEDS: HEPARIN 5,000 UNIT/1 ML VIAL SC ×3 (05:38→21:06)
[2019-05-06 06:12] LABS: ADD MAN DIFF? YES; ALBUMIN 2.4 g/dl (3.3-4.9); ANION GAP 8 (5-13); BLOOD UREA NITROGEN 7 mg/dl (7-20); CALCIUM 9.7 mg/dl (8.4-10.2); CARBON DIOXIDE 20 mmol/L (21-31); CHLORIDE 101 mmol/L (97-110); CREATININE 0.91 mg/dl (0.44-1.00); GLUCOSE 90 mg/dl (70-220); MAGNESIUM 1.9 mg/dl (1.7-2.5); PHOSPHORUS 3.1 mg/dl (2.5-4.9); POSITIVE DIFF @See below; POTASSIUM 4.4 mmol/L (3.5-5.1); SODIUM 129 mmol/L (135-144)
[2019-05-06] MEDS: INSULIN ASPART [NOVOLOG] 3 ML PEN SC ×4 (08:00→21:00)
[2019-05-06 08:16] LABS: ANISOCYTOSIS 1+ (0-0); BAND NEUTROPHILS #M 0.4 10^3/ul (0.0-0.6); BAND NEUTROPHILS % (M) 3 % (0-4); BASOPHIL #M 0.1 10^3/ul (0.0-0.0); BASOPHILS % (M) 1 % (0-2); EOSINOPHILS % (M) 7 % (0-7); LYMPHOCYTES #M 2.2 10^3/ul (0.8-2.9); LYMPHOCYTES % (M) 14 % (15-51); METAMYELOCYTES #M 0.3 10^3/ul (0.0-0.0); METAMYELOCYTES %M 2 % (0-0); MONOCYTE #M 1.4 10^3/ul (0.3-0.9); MONOCYTES % (M) 9 % (0-11); MYELOCYTES #M 1.2 10^3/ul (0.0-0.0); MYELOCYTES % (M) 8 % (0-0); PLATELET ESTIMATE NORMAL; POLYCHROMASIA 1+ (0-0); PROMYELOCYTES #M 0.1 10^3/ul (0-0); PROMYELOCYTES % (M) 1 % (0-0); SEGMENTED NEUTROPHILS (M) % 55 % (39-77); SMUDGE%M 6 % (0-0)
[2019-05-06] MEDS: L ACIDOPHIL/B LACTIS/B LONGUM CAPSULE PO ×2 (08:26→21:04)
[2019-05-06] MEDS: ESCITALOPRAM 10 MG TAB PO (08:26)
[2019-05-06] MEDS: LISINOPRIL 10 MG TAB PO (08:29)
[2019-05-06] MEDS: AMLODIPINE 10 MG TAB PO (08:30)
[2019-05-06] MEDS: NYSTATIN 30 GM POWDER BTL TOP ×2 (08:31→21:10)
[2019-05-06] MEDS: SOD CHLORIDE 0.9% 1,000 ML IV ×2 (09:46→19:38)
[2019-05-06] MEDS: ONDANSETRON 4 MG INJ IV (19:38)
[2019-05-06] MEDS: ATORVASTATIN 40 MG TAB PO (21:04)
[2019-05-07] MEDS: INSULIN ASPART [NOVOLOG] 3 ML PEN SC ×7 (01:00→21:00)
[2019-05-07] MEDS: METOCLOPRAMIDE 10 MG INJ IV ×4 (01:05→17:45)
[2019-05-07] MEDS: PANTOPRAZOLE (EC) 40 MG TAB PO (05:00)
[2019-05-07] MEDS: HEPARIN 5,000 UNIT/1 ML VIAL SC ×3 (05:04→20:54)
[2019-05-07] MEDS: SOD CHLORIDE 0.9% 1,000 ML IV ×2 (05:07→15:39)
[2019-05-07 05:49] LABS: WHITE BLOOD COUNT 16.4 10^3/ul (4.8-10.8)
[2019-05-07 05:49] LABS: ABNORMAL IP MESSAGE 1; HEMATOCRIT 29.3 % (37.0-47.0); HEMOGLOBIN 9.4 g/dl (12.0-16.0); MEAN CORPUSCULAR HGB CONC 32.1 g/dl (32.0-37.0); MEAN CORPUSCULAR VOLUME 80.9 fl (82.0-101.0); MEAN PLATELET VOLUME 9.9 fl (7.4-10.4); PLATELET COUNT 425 10^3/UL (140-415); RED BLOOD COUNT 3.62 10^6/ul (4.20-5.40); RED CELL DISTRIBUTION WIDTH 17.5 % (11.5-14.5)
[2019-05-07 06:14] LABS: ALBUMIN 2.6 g/dl (3.3-4.9); ANION GAP 7 (5-13); BLOOD UREA NITROGEN 7 mg/dl (7-20); CALCIUM 9.7 mg/dl (8.4-10.2); CARBON DIOXIDE 20 mmol/L (21-31); CHLORIDE 104 mmol/L (97-110); CREATININE 1.02 mg/dl (0.44-1.00); GLUCOSE 93 mg/dl (70-220); MAGNESIUM 1.7 mg/dl (1.7-2.5); POTASSIUM 3.7 mmol/L (3.5-5.1); SODIUM 131 mmol/L (135-144)
[2019-05-07 06:22] LABS: POSITIVE DIFF @See below
[2019-05-07 06:23] LABS: ADD MAN DIFF? YES
[2019-05-07] MEDS: L ACIDOPHIL/B LACTIS/B LONGUM CAPSULE PO ×2 (08:17→20:56)
[2019-05-07] MEDS: ESCITALOPRAM 10 MG TAB PO (08:17)
[2019-05-07] MEDS: AMLODIPINE 10 MG TAB PO (08:17)
[2019-05-07] MEDS: NYSTATIN 30 GM POWDER BTL TOP ×2 (08:18→20:56)
[2019-05-07] MEDS: LISINOPRIL 10 MG TAB PO (08:18)
[2019-05-07 12:11] LABS: ANISOCYTOSIS 2+ (0-0); BAND NEUTROPHILS #M 0.4 10^3/ul (0.0-0.6); BAND NEUTROPHILS % (M) 3 % (0-4); GIANT THROMBO% (M) 4 % (0-0); HYPOCHROMASIA 1+ (0-0); LYMPHOCYTES #M 2.9 10^3/ul (0.8-2.9); LYMPHOCYTES % (M) 18 % (15-51); MICROCYTOSIS 1+ (0-0); MONOCYTE #M 0.8 10^3/ul (0.3-0.9); MONOCYTES % (M) 5 % (0-11); PLATELET ESTIMATE NORMAL; POIKILOCYTOSIS 2+ (0-0); POLYCHROMASIA 3+ (0-0); SEG NEUT #M 12.2 10^3/ul (1.6-7.5); SEGMENTED NEUTROPHILS (M) % 74 % (39-77); SMUDGE%M 56 % (0-0)
[2019-05-07] MEDS: ACETAMINOPHEN 325 MG TAB PO (19:51)
[2019-05-07] MEDS: ATORVASTATIN 40 MG TAB PO (20:52)
[2019-05-08] MEDS: METOCLOPRAMIDE 10 MG INJ IV ×4 (00:07→18:06)
[2019-05-08] MEDS: SOD CHLORIDE 0.9% 1,000 ML IV ×3 (01:06→20:58)
[2019-05-08] MEDS: ACCU-CHEK XX (02:00)
[2019-05-08 05:22] LABS: ABNORMAL IP MESSAGE 1; HEMATOCRIT 30.7 % (37.0-47.0); HEMOGLOBIN 9.6 g/dl (12.0-16.0); MEAN CORPUSCULAR HEMOGLOBIN 25.7 pg (29.0-33.0); MEAN CORPUSCULAR HGB CONC 31.3 g/dl (32.0-37.0); MEAN CORPUSCULAR VOLUME 82.1 fl (82.0-101.0); MEAN PLATELET VOLUME 10.4 fl (7.4-10.4); PLATELET COUNT 444 10^3/UL (140-415); RED BLOOD COUNT 3.74 10^6/ul (4.20-5.40); RED CELL DISTRIBUTION WIDTH 17.7 % (11.5-14.5)
[2019-05-08 05:22] LABS: WHITE BLOOD COUNT 15.9 10^3/ul (4.8-10.8)
[2019-05-08 05:57] LABS: ADD MAN DIFF? YES; POSITIVE DIFF @See below
[2019-05-08 06:02] LABS: ALBUMIN 2.6 g/dl (3.3-4.9); ANION GAP 8 (5-13); BLOOD UREA NITROGEN 5 mg/dl (7-20); CALCIUM 9.9 mg/dl (8.4-10.2); CARBON DIOXIDE 19 mmol/L (21-31); CHLORIDE 107 mmol/L (97-110); CREATININE 0.91 mg/dl (0.44-1.00); GLUCOSE 78 mg/dl (70-220); MAGNESIUM 1.5 mg/dl (1.7-2.5); PHOSPHORUS 3.1 mg/dl (2.5-4.9); POTASSIUM 3.5 mmol/L (3.5-5.1); SODIUM 134 mmol/L (135-144)
[2019-05-08] MEDS: PANTOPRAZOLE (EC) 40 MG TAB PO (06:40)
[2019-05-08] MEDS: HEPARIN 5,000 UNIT/1 ML VIAL SC ×3 (06:42→22:38)
[2019-05-08] MEDS: INSULIN ASPART [NOVOLOG] 3 ML PEN SC ×4 (07:38→20:57)
[2019-05-08] MEDS: ESCITALOPRAM 10 MG TAB PO (08:48)
[2019-05-08] MEDS: AMLODIPINE 10 MG TAB PO (08:48)
[2019-05-08] MEDS: NYSTATIN 30 GM POWDER BTL TOP ×2 (08:49→20:51)
[2019-05-08] MEDS: LISINOPRIL 10 MG TAB PO (08:49)
[2019-05-08] MEDS: L ACIDOPHIL/B LACTIS/B LONGUM CAPSULE PO ×2 (08:49→20:51)
[2019-05-08] MEDS: POTASSIUM CHLORIDE 100 ML IVPB (09:46)
[2019-05-08 11:15] LABS: ANISOCYTOSIS 1+ (0-0); BAND NEUTROPHILS #M 0.3 10^3/ul (0.0-0.6); BAND NEUTROPHILS % (M) 2 % (0-4); EOSINOPHILS % (M) 15 % (0-7); GIANT THROMBO% (M) 1 % (0-0); LYMPHOCYTES #M 2.8 10^3/ul (0.8-2.9); LYMPHOCYTES % (M) 18 % (15-51); METAMYELOCYTES #M 0.3 10^3/ul (0.0-0.0); METAMYELOCYTES %M 2 % (0-0); MONOCYTE #M 1.1 10^3/ul (0.3-0.9); MONOCYTES % (M) 7 % (0-11); MYELOCYTES #M 0.6 10^3/ul (0.0-0.0); MYELOCYTES % (M) 4 % (0-0); PLATELET ESTIMATE NORMAL; POIKILOCYTOSIS 1+ (0-0); SEG NEUT #M 8.3 10^3/ul (1.6-7.5); SEGMENTED NEUTROPHILS (M) % 52 % (39-77); SMUDGE%M 31 % (0-0)
[2019-05-08] MEDS: morphine 2 MG INJ IV (11:58)
[2019-05-08] MEDS: POTASSIUM CHLORIDE (SR) 20 MEQ TAB PO (12:42)
[2019-05-08] MEDS: MAGNESIUM SULFATE 3 GM in DEXTROSE 5% 100 ML IVPB (12:42)
[2019-05-08] MEDS: SCOPOLAMINE 1.5 MG PATCH TRANSDERM (14:48)
[2019-05-08] MEDS: ATORVASTATIN 40 MG TAB PO (20:51)
[2019-05-09] MEDS: METOCLOPRAMIDE 10 MG INJ IV ×4 (01:01→17:19)
[2019-05-09] MEDS: SOD CHLORIDE 0.9% 1,000 ML IV ×2 (01:01→11:36)
[2019-05-09] MEDS: ACCU-CHEK XX (02:00)
[2019-05-09 06:17] LABS: WHITE BLOOD COUNT 16.6 10^3/ul (4.8-10.8)
[2019-05-09 06:17] LABS: ABNORMAL IP MESSAGE 1; HEMATOCRIT 28.8 % (37.0-47.0); HEMOGLOBIN 8.9 g/dl (12.0-16.0); MEAN CORPUSCULAR HEMOGLOBIN 25.9 pg (29.0-33.0); MEAN CORPUSCULAR HGB CONC 30.9 g/dl (32.0-37.0); MEAN CORPUSCULAR VOLUME 83.7 fl (82.0-101.0); MEAN PLATELET VOLUME 10.2 fl (7.4-10.4); PLATELET COUNT 436 10^3/UL (140-415); RED BLOOD COUNT 3.44 10^6/ul (4.20-5.40); RED CELL DISTRIBUTION WIDTH 17.7 % (11.5-14.5)
[2019-05-09 06:25] LABS: ADD MAN DIFF? YES; POSITIVE DIFF @See below
[2019-05-09] MEDS: PANTOPRAZOLE (EC) 40 MG TAB PO (06:35)
[2019-05-09] MEDS: HEPARIN 5,000 UNIT/1 ML VIAL SC ×3 (06:36→21:30)
[2019-05-09 07:00] LABS: ALBUMIN 2.4 g/dl (3.3-4.9); ANION GAP 6 (5-13); BLOOD UREA NITROGEN 4 mg/dl (7-20); CALCIUM 9.7 mg/dl (8.4-10.2); CARBON DIOXIDE 19 mmol/L (21-31); CHLORIDE 109 mmol/L (97-110); CREATININE 0.97 mg/dl (0.44-1.00); GLUCOSE 90 mg/dl (70-220); MAGNESIUM 2.1 mg/dl (1.7-2.5); SODIUM 134 mmol/L (135-144)
[2019-05-09 07:03] LABS: POTASSIUM 4.1 mmol/L (3.5-5.1)
[2019-05-09] MEDS: INSULIN ASPART [NOVOLOG] 3 ML PEN SC ×4 (08:00→21:00)
[2019-05-09 08:13] LABS: ANISOCYTOSIS 1+ (0-0); BAND NEUTROPHILS #M 0.6 10^3/ul (0.0-0.6); BAND NEUTROPHILS % (M) 4 % (0-4); EOSINOPHILS % (M) 13 % (0-7); LYMPHOCYTES #M 1.4 10^3/ul (0.8-2.9); LYMPHOCYTES % (M) 9 % (15-51); METAMYELOCYTES #M 0.4 10^3/ul (0.0-0.0); METAMYELOCYTES %M 3 % (0-0); MICROCYTOSIS 1+ (0-0); MONOCYTE #M 2.1 10^3/ul (0.3-0.9); MONOCYTES % (M) 13 % (0-11); MYELOCYTES #M 0.3 10^3/ul (0.0-0.0); MYELOCYTES % (M) 2 % (0-0); PLATELET ESTIMATE NORMAL; POLYCHROMASIA 1+ (0-0); SEG NEUT #M 9.4 10^3/ul (1.6-7.5); SEGMENTED NEUTROPHILS (M) % 56 % (39-77); SMUDGE%M 3 % (0-0)
[2019-05-09] MEDS: ESCITALOPRAM 10 MG TAB PO (08:26)
[2019-05-09] MEDS: L ACIDOPHIL/B LACTIS/B LONGUM CAPSULE PO ×2 (08:26→21:27)
[2019-05-09] MEDS: LISINOPRIL 10 MG TAB PO (08:27)
[2019-05-09] MEDS: AMLODIPINE 10 MG TAB PO (08:27)
[2019-05-09] MEDS: NYSTATIN 30 GM POWDER BTL TOP ×2 (08:28→21:27)
[2019-05-09] MEDS ORDERED: PROCHLORPERAZINE 10 MG INJ IV (14:30)
[2019-05-09 14:43] LABS: PROCALCITONIN 0.21 ng/mL (0.00-0.10)
[2019-05-09] MEDS: MEGESTROL (40 MG/ML) 10ML CUP PO (21:27)
[2019-05-09] MEDS: ATORVASTATIN 40 MG TAB PO (21:27)
[2019-05-09] MEDS: ONDANSETRON 4 MG INJ IV (21:38)
[2019-05-10] MEDS: SOD CHLORIDE 0.9% 1,000 ML IV ×3 (01:48→17:28)
[2019-05-10] MEDS: METOCLOPRAMIDE 10 MG INJ IV ×4 (01:48→17:28)
[2019-05-10] MEDS: ACCU-CHEK XX (02:00)
[2019-05-10] MEDS: ACETAMINOPHEN 325 MG TAB PO (04:07)
[2019-05-10 05:43] LABS: ABNORMAL IP MESSAGE 1; HEMATOCRIT 27.2 % (37.0-47.0); HEMOGLOBIN 8.3 g/dl (12.0-16.0); MEAN CORPUSCULAR HEMOGLOBIN 25.4 pg (29.0-33.0); MEAN CORPUSCULAR HGB CONC 30.5 g/dl (32.0-37.0); MEAN CORPUSCULAR VOLUME 83.2 fl (82.0-101.0); PLATELET COUNT 390 10^3/UL (140-415); RED BLOOD COUNT 3.27 10^6/ul (4.20-5.40); RED CELL DISTRIBUTION WIDTH 18.1 % (11.5-14.5)
[2019-05-10 05:43] LABS: WHITE BLOOD COUNT 15.3 10^3/ul (4.8-10.8)
[2019-05-10 05:50] LABS: POSITIVE DIFF @See below
[2019-05-10 05:51] LABS: ADD MAN DIFF? YES
[2019-05-10] MEDS: PANTOPRAZOLE (EC) 40 MG TAB PO (05:56)
[2019-05-10] MEDS: HEPARIN 5,000 UNIT/1 ML VIAL SC ×3 (05:58→21:28)
[2019-05-10 06:28] LABS: ALBUMIN 2.2 g/dl (3.3-4.9); ANION GAP 6 (5-13); BLOOD UREA NITROGEN 4 mg/dl (7-20); CALCIUM 9.5 mg/dl (8.4-10.2); CARBON DIOXIDE 21 mmol/L (21-31); CHLORIDE 108 mmol/L (97-110); CREATININE 0.95 mg/dl (0.44-1.00); GLUCOSE 91 mg/dl (70-220); MAGNESIUM 1.7 mg/dl (1.7-2.5); POTASSIUM 3.8 mmol/L (3.5-5.1); SODIUM 135 mmol/L (135-144)
[2019-05-10 07:55] LABS: ANISOCYTOSIS 1+ (0-0); BAND NEUTROPHILS #M 0.6 10^3/ul (0.0-0.6); BAND NEUTROPHILS % (M) 4 % (0-4); EOSINOPHILS % (M) 20 % (0-7); LYMPHOCYTES #M 1.5 10^3/ul (0.8-2.9); LYMPHOCYTES % (M) 10 % (15-51); METAMYELOCYTES #M 0.1 10^3/ul (0.0-0.0); METAMYELOCYTES %M 1 % (0-0); MONOCYTE #M 1.6 10^3/ul (0.3-0.9); MONOCYTES % (M) 11 % (0-11); MYELOCYTES #M 0.6 10^3/ul (0.0-0.0); MYELOCYTES % (M) 4 % (0-0); PLATELET ESTIMATE NORMAL; POLYCHROMASIA 1+ (0-0); SEG NEUT #M 7.9 10^3/ul (1.6-7.5); SEGMENTED NEUTROPHILS (M) % 51 % (39-77); SMUDGE%M 4 % (0-0)
[2019-05-10] MEDS: INSULIN ASPART [NOVOLOG] 3 ML PEN SC ×4 (08:00→21:00)
[2019-05-10] MEDS: MEGESTROL (40 MG/ML) 10ML CUP PO ×2 (09:53→21:26)
[2019-05-10] MEDS: L ACIDOPHIL/B LACTIS/B LONGUM CAPSULE PO ×2 (09:53→21:26)
[2019-05-10] MEDS: ESCITALOPRAM 10 MG TAB PO (09:53)
[2019-05-10] MEDS: NYSTATIN 30 GM POWDER BTL TOP ×3 (09:54→21:27)
[2019-05-10] MEDS: LISINOPRIL 10 MG TAB PO (09:54)
[2019-05-10] MEDS: AMLODIPINE 10 MG TAB PO (09:54)
[2019-05-10] MEDS: ATORVASTATIN 40 MG TAB PO (21:26)
[2019-05-11] MEDS: METOCLOPRAMIDE 10 MG INJ IV ×4 (00:20→17:43)
[2019-05-11] MEDS: ACCU-CHEK XX (02:00)
[2019-05-11] MEDS: PANTOPRAZOLE (EC) 40 MG TAB PO (05:26)
[2019-05-11] MEDS: HEPARIN 5,000 UNIT/1 ML VIAL SC ×3 (05:29→21:11)
[2019-05-11] MEDS: INSULIN ASPART [NOVOLOG] 3 ML PEN SC ×4 (08:00→21:00)
[2019-05-11] MEDS: ESCITALOPRAM 10 MG TAB PO (08:04)
[2019-05-11] MEDS: L ACIDOPHIL/B LACTIS/B LONGUM CAPSULE PO ×2 (08:04→21:09)
[2019-05-11] MEDS: NYSTATIN 30 GM POWDER BTL TOP ×3 (08:04→21:13)
[2019-05-11] MEDS: MEGESTROL (40 MG/ML) 10ML CUP PO ×2 (08:04→21:09)
[2019-05-11] MEDS: AMLODIPINE 10 MG TAB PO (08:04)
[2019-05-11] MEDS: LISINOPRIL 10 MG TAB PO (08:04)
[2019-05-11] MEDS: ONDANSETRON 4 MG INJ IV (10:00)
[2019-05-11] MEDS: SOD CHLORIDE 0.9% 1,000 ML IV (12:57)
[2019-05-11] MEDS: SCOPOLAMINE 1.5 MG PATCH TRANSDERM (14:49)
[2019-05-11 15:33] LABS: ADD UMIC NO; UR ASCORBIC ACID NEGATIVE (NEGATIVE); UR BILIRUBIN (Dip) NEGATIVE (NEGATIVE); UR BLOOD (Dip) NEGATIVE (NEGATIVE); UR CLARITY CLEAR (CLEAR); UR COLOR STRAW (YELLOW); UR GLUCOSE (Dip) NEGATIVE (NEGATIVE); UR KETONES (Dip) NEGATIVE (NEGATIVE); UR LEUKOCYTE ESTERASE (Dip) NEGATIVE Leu/ul (NEGATIVE); UR NITRITE (Dip) NEGATIVE (NEGATIVE); UR SPECIFIC GRAVITY (Dip) 1.005 (1.003-1.030); UR TOTAL PROTEIN (Dip) NEGATIVE (NEGATIVE); UR UROBILINOGEN (Dip) NEGATIVE (NEGATIVE)
[2019-05-11] MEDS: ATORVASTATIN 40 MG TAB PO (21:09)
[2019-05-11] MEDS: ACETAMINOPHEN 325 MG TAB PO (21:11)
[2019-05-12] MEDS: METOCLOPRAMIDE 10 MG INJ IV ×4 (00:28→17:31)
[2019-05-12] MEDS: ACCU-CHEK XX ×3 (02:00→20:58)
[2019-05-12] MEDS: PANTOPRAZOLE (EC) 40 MG TAB PO (06:07)
[2019-05-12] MEDS: HEPARIN 5,000 UNIT/1 ML VIAL SC ×3 (06:08→22:17)
[2019-05-12] MEDS: SOD CHLORIDE 0.9% 1,000 ML IV ×2 (06:16→12:23)
[2019-05-12] MEDS: INSULIN ASPART [NOVOLOG] 3 ML PEN SC ×4 (08:00→20:57)
[2019-05-12] MEDS: ESCITALOPRAM 10 MG TAB PO (08:32)
[2019-05-12] MEDS: AMLODIPINE 10 MG TAB PO (08:32)
[2019-05-12] MEDS: LISINOPRIL 10 MG TAB PO (08:32)
[2019-05-12] MEDS: L ACIDOPHIL/B LACTIS/B LONGUM CAPSULE PO ×2 (08:32→20:57)
[2019-05-12] MEDS: MEGESTROL (40 MG/ML) 10ML CUP PO ×2 (08:32→20:57)
[2019-05-12] MEDS: NYSTATIN 30 GM POWDER BTL TOP ×3 (08:33→20:57)
[2019-05-12] MEDS ORDERED: hydrALAzine 20 MG INJ IV (15:30)
[2019-05-12 16:33] LABS: ALANINE AMINOTRANSFERASE 20 IU/L (13-69); ALBUMIN 2.5 g/dl (3.3-4.9); ALBUMIN/GLOBULIN RATIO 0.86; ALKALINE PHOSPHATASE 85 IU/L (42-121); ANION GAP 7 (5-13); ASPARTATE AMINO TRANSFERASE 14 IU/L (15-46); BILIRUBIN,INDIRECT 0.3 mg/dl (0-1.1); BILIRUBIN,TOTAL 0.3 mg/dl (0.2-1.3); BLOOD UREA NITROGEN 6 mg/dl (7-20); CALCIUM 10.1 mg/dl (8.4-10.2); CARBON DIOXIDE 20 mmol/L (21-31); CHLORIDE 109 mmol/L (97-110); CREATININE 0.97 mg/dl (0.44-1.00); Estimated GFR 58 mL/min (>60); GLUCOSE 89 mg/dl (70-220); MAGNESIUM 1.4 mg/dl (1.7-2.5); PHOSPHORUS 2.9 mg/dl (2.5-4.9); POTASSIUM 3.7 mmol/L (3.5-5.1); SODIUM 136 mmol/L (135-144); TOTAL PROTEIN 5.4 g/dl (6.1-8.1); TRIGLYCERIDES 199 mg/dl (0-149)
[2019-05-12 16:40] LABS: PREALBUMIN 3.4 mg/dl (17.6-36.0)
[2019-05-12] MEDS: ATORVASTATIN 40 MG TAB PO (20:57)
[2019-05-13] MEDS: ACCU-CHEK XX ×7 (00:08→21:00)
[2019-05-13] MEDS: SOD CHLORIDE 0.9% 1,000 ML IV (01:49)
[2019-05-13] MEDS: MAGNESIUM SULFATE 3 GM in DEXTROSE 5% 100 ML IVPB (03:29)
[2019-05-13 05:46] LABS: ADD MAN DIFF? NO
[2019-05-13 05:48] LABS: WHITE BLOOD COUNT 13.1 10^3/ul (4.8-10.8)
[2019-05-13 05:48] LABS: ABNORMAL IP MESSAGE 1; BASOPHIL # 0.1 10^3/ul (0.0-0.1); BASOPHILS % 0.6 % (0.0-2.0); EOSINOPHILS # 2.3 10^3/ul (0.0-0.5); EOSINOPHILS % 17.8 % (0.0-7.0); HEMATOCRIT 27.1 % (37.0-47.0); HEMOGLOBIN 8.5 g/dl (12.0-16.0); LYMPHOCYTES # 2.3 10^3/ul (0.8-2.9); LYMPHOCYTES % 17.2 % (15.0-51.0); MEAN CORPUSCULAR HEMOGLOBIN 25.8 pg (29.0-33.0); MEAN CORPUSCULAR HGB CONC 31.4 g/dl (32.0-37.0); MEAN CORPUSCULAR VOLUME 82.4 fl (82.0-101.0); MEAN PLATELET VOLUME 9.3 fl (7.4-10.4); MONOCYTES % 7.9 % (0.0-11.0); NEUTROPHIL # 6.9 10^3/ul (1.6-7.5); NEUTROPHILS % 52.4 % (39.0-77.0); PLATELET COUNT 391 10^3/UL (140-415); RED BLOOD COUNT 3.29 10^6/ul (4.20-5.40)
[2019-05-13 05:49] LABS: POSITIVE DIFF @See below
[2019-05-13 06:04] LABS: PHOSPHORUS 3.1 mg/dl (2.5-4.9)
[2019-05-13 06:04] LABS: MAGNESIUM 1.7 mg/dl (1.7-2.5)
[2019-05-13 06:05] LABS: ANION GAP 7 (5-13); BLOOD UREA NITROGEN 5 mg/dl (7-20); CALCIUM 9.8 mg/dl (8.4-10.2); CARBON DIOXIDE 20 mmol/L (21-31); CHLORIDE 110 mmol/L (97-110); CREATININE 0.96 mg/dl (0.44-1.00); Estimated GFR 58 mL/min (>60); GLUCOSE 85 mg/dl (70-220); POTASSIUM 3.7 mmol/L (3.5-5.1); SODIUM 137 mmol/L (135-144)
[2019-05-13 06:07] LABS: ALANINE AMINOTRANSFERASE 19 IU/L (13-69); ALBUMIN 2.2 g/dl (3.3-4.9); ALKALINE PHOSPHATASE 73 IU/L (42-121); ASPARTATE AMINO TRANSFERASE 15 IU/L (15-46); BILIRUBIN,INDIRECT 0.3 mg/dl (0-1.1); BILIRUBIN,TOTAL 0.3 mg/dl (0.2-1.3); TOTAL PROTEIN 4.7 g/dl (6.1-8.1)
[2019-05-13] MEDS: METOCLOPRAMIDE 10 MG INJ IV ×5 (06:17→23:43)
[2019-05-13] MEDS: PANTOPRAZOLE (EC) 40 MG TAB PO (06:17)
[2019-05-13] MEDS: HEPARIN 5,000 UNIT/1 ML VIAL SC ×3 (06:18→21:58)
[2019-05-13] MEDS: INSULIN ASPART [NOVOLOG] 3 ML PEN SC ×4 (08:00→20:55)
[2019-05-13] MEDS: MEGESTROL (40 MG/ML) 10ML CUP PO (08:08)
[2019-05-13] MEDS: L ACIDOPHIL/B LACTIS/B LONGUM CAPSULE PO ×2 (08:08→20:54)
[2019-05-13] MEDS: ESCITALOPRAM 10 MG TAB PO (08:08)
[2019-05-13] MEDS: AMLODIPINE 10 MG TAB PO (08:10)
[2019-05-13] MEDS: NYSTATIN 30 GM POWDER BTL TOP ×3 (08:10→21:57)
[2019-05-13] MEDS: LISINOPRIL 10 MG TAB PO (08:10)
[2019-05-13] MEDS: ACETAMINOPHEN 325 MG TAB PO (09:38)
[2019-05-13] MEDS: TPN 1,000 ML IV (17:04)
[2019-05-13] MEDS: ATORVASTATIN 40 MG TAB PO (20:53)
[2019-05-14] MEDS: ACCU-CHEK XX ×7 (01:00→20:08)
[2019-05-14] MEDS: ZOLPIDEM 5 MG TAB PO (01:47)
[2019-05-14] MEDS: HEPARIN 5,000 UNIT/1 ML VIAL SC ×3 (04:59→20:08)
[2019-05-14] MEDS: METOCLOPRAMIDE 10 MG INJ IV ×3 (05:00→17:39)
[2019-05-14] MEDS: PANTOPRAZOLE (EC) 40 MG TAB PO (05:00)
[2019-05-14] MEDS: TPN 1,000 ML IV ×2 (05:04→20:08)
[2019-05-14 06:26] LABS: ADD MAN DIFF? NO
[2019-05-14 06:30] LABS: BASOPHIL # 0.1 10^3/ul (0.0-0.1); BASOPHILS % 0.5 % (0.0-2.0); EOSINOPHILS # 1.9 10^3/ul (0.0-0.5); HEMATOCRIT 27.6 % (37.0-47.0); HEMOGLOBIN 8.6 g/dl (12.0-16.0); LYMPHOCYTES # 1.9 10^3/ul (0.8-2.9); LYMPHOCYTES % 16.6 % (15.0-51.0); MEAN CORPUSCULAR HEMOGLOBIN 25.7 pg (29.0-33.0); MEAN CORPUSCULAR HGB CONC 31.2 g/dl (32.0-37.0); MEAN CORPUSCULAR VOLUME 82.4 fl (82.0-101.0); MEAN PLATELET VOLUME 9.9 fl (7.4-10.4); MONOCYTE # 0.9 10^3/ul (0.3-0.9); MONOCYTES % 7.9 % (0.0-11.0); NEUTROPHIL # 6.4 10^3/ul (1.6-7.5); NEUTROPHILS % 55.5 % (39.0-77.0); PLATELET COUNT 430 10^3/UL (140-415); RED BLOOD COUNT 3.35 10^6/ul (4.20-5.40)
[2019-05-14 06:30] LABS: WHITE BLOOD COUNT 11.6 10^3/ul (4.8-10.8)
[2019-05-14 07:08] LABS: PHOSPHORUS 2.4 mg/dl (2.5-4.9)
[2019-05-14 07:09] LABS: ANION GAP 6 (5-13); BLOOD UREA NITROGEN 8 mg/dl (7-20); CALCIUM 9.8 mg/dl (8.4-10.2); CARBON DIOXIDE 21 mmol/L (21-31); CHLORIDE 107 mmol/L (97-110); CREATININE 0.97 mg/dl (0.44-1.00); Estimated GFR 58 mL/min (>60); GLUCOSE 123 mg/dl (70-220); POTASSIUM 3.9 mmol/L (3.5-5.1); SODIUM 134 mmol/L (135-144)
[2019-05-14] MEDS: INSULIN ASPART [NOVOLOG] 3 ML PEN SC ×5 (08:00→19:35)
[2019-05-14] MEDS: ESCITALOPRAM 10 MG TAB PO (08:19)
[2019-05-14] MEDS: L ACIDOPHIL/B LACTIS/B LONGUM CAPSULE PO ×2 (08:20→20:07)
[2019-05-14] MEDS: LISINOPRIL 10 MG TAB PO (08:20)
[2019-05-14] MEDS: AMLODIPINE 10 MG TAB PO (08:20)
[2019-05-14] MEDS: NYSTATIN 30 GM POWDER BTL TOP ×3 (08:21→20:08)
[2019-05-14] MEDS: SCOPOLAMINE 1.5 MG PATCH TRANSDERM (14:07)
[2019-05-14] MEDS: ATORVASTATIN 40 MG TAB PO (20:08)
[2019-05-15] MEDS: METOCLOPRAMIDE 10 MG INJ IV ×5 (00:32→23:53)
[2019-05-15] MEDS: ACCU-CHEK XX ×7 (00:32→20:53)
[2019-05-15] MEDS: PANTOPRAZOLE (EC) 40 MG TAB PO (05:05)
[2019-05-15] MEDS: HEPARIN 5,000 UNIT/1 ML VIAL SC ×2 (05:05→20:52)
[2019-05-15 05:46] LABS: ADD MAN DIFF? NO
[2019-05-15 05:51] LABS: BASOPHIL # 0.1 10^3/ul (0.0-0.1); BASOPHILS % 0.6 % (0.0-2.0); EOSINOPHILS # 1.5 10^3/ul (0.0-0.5); EOSINOPHILS % 11.6 % (0.0-7.0); HEMATOCRIT 30.5 % (37.0-47.0); HEMOGLOBIN 9.1 g/dl (12.0-16.0); LYMPHOCYTES # 2.6 10^3/ul (0.8-2.9); LYMPHOCYTES % 20.3 % (15.0-51.0); MEAN CORPUSCULAR HEMOGLOBIN 25.3 pg (29.0-33.0); MEAN CORPUSCULAR HGB CONC 29.8 g/dl (32.0-37.0); MEAN CORPUSCULAR VOLUME 84.7 fl (82.0-101.0); MEAN PLATELET VOLUME 10.2 fl (7.4-10.4); NEUTROPHIL # 6.9 10^3/ul (1.6-7.5); NEUTROPHILS % 54.7 % (39.0-77.0); PLATELET COUNT 383 10^3/UL (140-415); RED CELL DISTRIBUTION WIDTH 18.7 % (11.5-14.5)
[2019-05-15 05:51] LABS: WHITE BLOOD COUNT 12.6 10^3/ul (4.8-10.8)
[2019-05-15 06:10] LABS: INR 0.89; PROTIME 12.1 Sec (11.9-14.9); PT RATIO 0.9
[2019-05-15 06:20] LABS: ANION GAP 7 (5-13); BLOOD UREA NITROGEN 14 mg/dl (7-20); CALCIUM 9.4 mg/dl (8.4-10.2); CARBON DIOXIDE 22 mmol/L (21-31); CHLORIDE 106 mmol/L (97-110); CREATININE 1.01 mg/dl (0.44-1.00); Estimated GFR 55 mL/min (>60); GLUCOSE 103 mg/dl (70-220); POTASSIUM 4.1 mmol/L (3.5-5.1); SODIUM 135 mmol/L (135-144)
[2019-05-15 07:30] LABS: MAGNESIUM 1.9 mg/dl (1.7-2.5)
[2019-05-15 07:30] LABS: PHOSPHORUS 2.2 mg/dl (2.5-4.9)
[2019-05-15] MEDS: INSULIN ASPART [NOVOLOG] 3 ML PEN SC ×4 (08:00→20:52)
[2019-05-15] MEDS: PROPOFOL 20 ML (09:10)
[2019-05-15] MEDS: ETOMIDATE 20 MG INJ (09:11)
[2019-05-15] MEDS: CEFAZOLIN 1 GM/50 ML (PMX) 50 ML IVPB (09:26)
[2019-05-15] MEDS: morphine 2 MG INJ IV (10:41)
[2019-05-15] MEDS: ESCITALOPRAM 10 MG TAB PO (10:57)
[2019-05-15] MEDS: LISINOPRIL 10 MG TAB PO (10:57)
[2019-05-15] MEDS: L ACIDOPHIL/B LACTIS/B LONGUM CAPSULE PO ×2 (10:57→20:52)
[2019-05-15] MEDS: AMLODIPINE 10 MG TAB PO (10:57)
[2019-05-15] MEDS: NYSTATIN 30 GM POWDER BTL TOP ×3 (10:58→20:53)
[2019-05-15 14:42] LABS: AADO2 Arterial 22.2 mmHg (7.0-24.0); Allen Test ACCEPTAB; Arterial Base Excess -2.3 mmol/L (-3.0-3); Arterial Blood Gas Oxygen Sat 96.8 mmHG (95.0-98.0); Arterial COHb 0.2 % (0.0-3.0); Arterial Fraction of Oxyhgb 96.5 % (93.0-99.0); Arterial HCO3 21.4 mmol/L (22.0-26.0); Arterial MetHb 0.1 % (0.0-1.5); Arterial pCO2 32.8 mmhg (35-45); MODE ROOM AIR; Site Left Radial
[2019-05-15] MEDS: SODIUM PHOSPHATE 15 MMOL in SOD CHLORIDE 0.9% 250 ML IV (16:07)
[2019-05-15] MEDS: ATORVASTATIN 40 MG TAB PO (20:52)
[2019-05-15] MEDS: ZOLPIDEM 5 MG TAB PO (23:19)
[2019-05-16] MEDS: ACCU-CHEK XX ×7 (01:17→20:54)
[2019-05-16] MEDS: PANTOPRAZOLE (EC) 40 MG TAB PO (05:22)
[2019-05-16] MEDS: METOCLOPRAMIDE 10 MG INJ IV ×3 (05:22→17:24)
[2019-05-16] MEDS: DOCUSATE SODIUM 100 MG CAP PO (05:22)
[2019-05-16 06:12] LABS: ADD MAN DIFF? NO
[2019-05-16 06:50] LABS: WHITE BLOOD COUNT 14.6 10^3/ul (4.8-10.8)
[2019-05-16 06:50] LABS: BASOPHIL # 0.1 10^3/ul (0.0-0.1); BASOPHILS % 0.5 % (0.0-2.0); EOSINOPHILS # 1.4 10^3/ul (0.0-0.5); EOSINOPHILS % 9.4 % (0.0-7.0); HEMATOCRIT 29.8 % (37.0-47.0); HEMOGLOBIN 9.1 g/dl (12.0-16.0); LYMPHOCYTES # 2.3 10^3/ul (0.8-2.9); LYMPHOCYTES % 15.5 % (15.0-51.0); MEAN CORPUSCULAR HEMOGLOBIN 25.1 pg (29.0-33.0); MEAN CORPUSCULAR HGB CONC 30.5 g/dl (32.0-37.0); MEAN CORPUSCULAR VOLUME 82.3 fl (82.0-101.0); MEAN PLATELET VOLUME 10.4 fl (7.4-10.4); MONOCYTE # 1.1 10^3/ul (0.3-0.9); MONOCYTES % 7.5 % (0.0-11.0); NEUTROPHIL # 9.2 10^3/ul (1.6-7.5); NEUTROPHILS % 62.5 % (39.0-77.0); PLATELET COUNT 428 10^3/UL (140-415); RED BLOOD COUNT 3.62 10^6/ul (4.20-5.40); RED CELL DISTRIBUTION WIDTH 18.6 % (11.5-14.5)
[2019-05-16 07:28] LABS: MAGNESIUM 1.7 mg/dl (1.7-2.5)
[2019-05-16 07:32] LABS: ANION GAP 8 (5-13); BLOOD UREA NITROGEN 16 mg/dl (7-20); CALCIUM 9.1 mg/dl (8.4-10.2); CARBON DIOXIDE 20 mmol/L (21-31); CHLORIDE 107 mmol/L (97-110); CREATININE 0.97 mg/dl (0.44-1.00); Estimated GFR 58 mL/min (>60); GLUCOSE 87 mg/dl (70-220); POTASSIUM 4.5 mmol/L (3.5-5.1); SODIUM 135 mmol/L (135-144)
[2019-05-16] MEDS: INSULIN ASPART [NOVOLOG] 3 ML PEN SC ×3 (08:00→17:24)
[2019-05-16] MEDS: LISINOPRIL 10 MG TAB PO (09:52)
[2019-05-16] MEDS: AMLODIPINE 10 MG TAB PO (09:52)
[2019-05-16] MEDS: ESCITALOPRAM 10 MG TAB PO (09:52)
[2019-05-16] MEDS: L ACIDOPHIL/B LACTIS/B LONGUM CAPSULE PO ×2 (09:53→20:54)
[2019-05-16] MEDS: NYSTATIN 30 GM POWDER BTL TOP ×3 (09:53→20:58)
[2019-05-16] MEDS: HEPARIN 5,000 UNIT/1 ML VIAL SC ×2 (09:56→20:56)
[2019-05-16] MEDS: ATORVASTATIN 40 MG TAB PO (20:54)
[2019-05-16] MEDS: Insulin NOVOLOG SS MILD Algorithm (NPO/TPN/ENTERAL FEEDS) SC (20:54)
[2019-05-16] MEDS: ZOLPIDEM 5 MG TAB PO (20:56)
[2019-05-16] MEDS ORDERED: INSULIN ASPART [NOVOLOG] 3 ML PEN SC (21:00)
[2019-05-17] MEDS: ACCU-CHEK XX ×7 (00:44→20:26)
[2019-05-17] MEDS: Insulin NOVOLOG SS MILD Algorithm (NPO/TPN/ENTERAL FEEDS) SC ×6 (01:00→20:26)
[2019-05-17 05:14] LABS: ANION GAP 3 (5-13); BLOOD UREA NITROGEN 21 mg/dl (7-20); CALCIUM 9.3 mg/dl (8.4-10.2); CARBON DIOXIDE 26 mmol/L (21-31); CHLORIDE 106 mmol/L (97-110); CREATININE 1.07 mg/dl (0.44-1.00); Estimated GFR 51 mL/min (>60); GLUCOSE 103 mg/dl (70-220); POTASSIUM 4.6 mmol/L (3.5-5.1); SODIUM 135 mmol/L (135-144)
[2019-05-17 05:15] LABS: WHITE BLOOD COUNT 15.5 10^3/ul (4.8-10.8)
[2019-05-17 05:15] LABS: ABNORMAL IP MESSAGE 1; HEMATOCRIT 26.1 % (37.0-47.0); HEMOGLOBIN 8.1 g/dl (12.0-16.0); MEAN CORPUSCULAR HEMOGLOBIN 25.3 pg (29.0-33.0); MEAN CORPUSCULAR VOLUME 81.6 fl (82.0-101.0); MEAN PLATELET VOLUME 10.2 fl (7.4-10.4); NUCLEATED RED BLOOD CELLS% 0.1 /100WBC (0.0-0.0); PLATELET COUNT 471 10^3/UL (140-415); RED CELL DISTRIBUTION WIDTH 18.6 % (11.5-14.5)
[2019-05-17] MEDS: METOCLOPRAMIDE 10 MG INJ IV ×4 (05:27→17:39)
[2019-05-17] MEDS: PANTOPRAZOLE (EC) 40 MG TAB PO (05:27)
[2019-05-17 05:38] LABS: POSITIVE DIFF @See below
[2019-05-17 05:39] LABS: ADD MAN DIFF? YES
[2019-05-17 08:16] LABS: ANISOCYTOSIS 1+ (0-0); BAND NEUTROPHILS #M 0.4 10^3/ul (0.0-0.6); BAND NEUTROPHILS % (M) 3 % (0-4); BURR CELLS 1+ (0-0); EOSINOPHILS % (M) 4 % (0-7); GIANT THROMBO% (M) 1 % (0-0); LYMPHOCYTES #M 2.7 10^3/ul (0.8-2.9); LYMPHOCYTES % (M) 18 % (15-51); METAMYELOCYTES #M 0.1 10^3/ul (0.0-0.0); METAMYELOCYTES %M 1 % (0-0); MICROCYTOSIS 1+ (0-0); MONOCYTE #M 0.9 10^3/ul (0.3-0.9); MONOCYTES % (M) 6 % (0-11); MYELOCYTES #M 0.4 10^3/ul (0.0-0.0); MYELOCYTES % (M) 3 % (0-0); PLATELET ESTIMATE NORMAL; POIKILOCYTOSIS 1+ (0-0); POLYCHROMASIA 3+ (0-0); REACTIVE LYMPHOCYTES #M 0.1 10^3/ul (0.0-0.0); REACTIVE LYMPHOCYTES% (M) 1 % (0-0); SEGMENTED NEUTROPHILS (M) % 64 % (39-77); SMUDGE%M 4 % (0-0); TARGET CELLS 1+ (0-0)
[2019-05-17] MEDS: L ACIDOPHIL/B LACTIS/B LONGUM CAPSULE PO ×2 (08:36→20:17)
[2019-05-17] MEDS: ESCITALOPRAM 10 MG TAB PO (08:36)
[2019-05-17] MEDS: LISINOPRIL 10 MG TAB PO (08:37)
[2019-05-17] MEDS: AMLODIPINE 10 MG TAB PO (08:37)
[2019-05-17] MEDS: HEPARIN 5,000 UNIT/1 ML VIAL SC ×2 (08:40→20:19)
[2019-05-17] MEDS: NYSTATIN 30 GM POWDER BTL TOP ×3 (08:43→20:26)
[2019-05-17] MEDS: SCOPOLAMINE 1.5 MG PATCH TRANSDERM (13:36)
[2019-05-17] MEDS: ACETAMINOPHEN 325 MG TAB PO (17:39)
[2019-05-17] MEDS: ATORVASTATIN 40 MG TAB PO (20:18)
[2019-05-17] MEDS: ZOLPIDEM 5 MG TAB PO (23:09)
[2019-05-18] MEDS: METOCLOPRAMIDE 10 MG INJ IV ×4 (00:36→17:35)
[2019-05-18] MEDS: Insulin NOVOLOG SS MILD Algorithm (NPO/TPN/ENTERAL FEEDS) SC ×6 (01:00→21:00)
[2019-05-18] MEDS: ACCU-CHEK XX ×7 (01:09→21:00)
[2019-05-18 05:55] LABS: WHITE BLOOD COUNT 17.6 10^3/ul (4.8-10.8)
[2019-05-18 05:55] LABS: ABNORMAL IP MESSAGE 1; HEMATOCRIT 27.5 % (37.0-47.0); HEMOGLOBIN 8.5 g/dl (12.0-16.0); MEAN CORPUSCULAR HEMOGLOBIN 25.4 pg (29.0-33.0); MEAN CORPUSCULAR HGB CONC 30.9 g/dl (32.0-37.0); MEAN CORPUSCULAR VOLUME 82.3 fl (82.0-101.0); MEAN PLATELET VOLUME 9.6 fl (7.4-10.4); PLATELET COUNT 526 10^3/UL (140-415); RED BLOOD COUNT 3.34 10^6/ul (4.20-5.40); RED CELL DISTRIBUTION WIDTH 18.6 % (11.5-14.5)
[2019-05-18] MEDS: PANTOPRAZOLE (EC) 40 MG TAB PO (06:01)
[2019-05-18] MEDS: ACETAMINOPHEN 325 MG TAB PO (06:01)
[2019-05-18 06:10] LABS: ADD MAN DIFF? YES; POSITIVE DIFF @See below
[2019-05-18 06:40] LABS: ANION GAP 5 (5-13); BLOOD UREA NITROGEN 26 mg/dl (7-20); CARBON DIOXIDE 26 mmol/L (21-31); CHLORIDE 105 mmol/L (97-110); CREATININE 1.07 mg/dl (0.44-1.00); Estimated GFR 51 mL/min (>60); GLUCOSE 110 mg/dl (70-220); POTASSIUM 5.3 mmol/L (3.5-5.1); SODIUM 136 mmol/L (135-144)
[2019-05-18 07:54] LABS: ANISOCYTOSIS 1+ (0-0); BAND NEUTROPHILS #M 1.4 10^3/ul (0.0-0.6); BAND NEUTROPHILS % (M) 8 % (0-4); EOSINOPHILS % (M) 13 % (0-7); GIANT THROMBO% (M) 2 % (0-0); LYMPHOCYTES #M 2.4 10^3/ul (0.8-2.9); LYMPHOCYTES % (M) 14 % (15-51); MONOCYTE #M 1.4 10^3/ul (0.3-0.9); MONOCYTES % (M) 8 % (0-11); MYELOCYTES #M 0.1 10^3/ul (0.0-0.0); MYELOCYTES % (M) 1 % (0-0); PLATELET ESTIMATE INCREASED; POIKILOCYTOSIS 1+ (0-0); POLYCHROMASIA 1+ (0-0); PROMYELOCYTES #M 0.3 10^3/ul (0-0); PROMYELOCYTES % (M) 2 % (0-0); SEG NEUT #M 9.8 10^3/ul (1.6-7.5); SEGMENTED NEUTROPHILS (M) % 54 % (39-77); SMUDGE%M 2 % (0-0); TARGET CELLS 1+ (0-0)
[2019-05-18] MEDS: NA POLYST SULFON 15 GM/60 ML BTL PO (09:54)
[2019-05-18] MEDS: L ACIDOPHIL/B LACTIS/B LONGUM CAPSULE PO ×2 (09:54→21:21)
[2019-05-18] MEDS: ESCITALOPRAM 10 MG TAB PO (09:54)
[2019-05-18] MEDS: AMLODIPINE 10 MG TAB PO (09:55)
[2019-05-18] MEDS: HEPARIN 5,000 UNIT/1 ML VIAL SC ×2 (09:57→21:22)
[2019-05-18] MEDS: NYSTATIN 30 GM POWDER BTL TOP ×3 (10:00→21:44)
[2019-05-18] MEDS: ATORVASTATIN 40 MG TAB PO (21:21)
[2019-05-18] MEDS: ZOLPIDEM 5 MG TAB PO (21:21)
[2019-05-19] MEDS: METOCLOPRAMIDE 10 MG INJ IV ×5 (00:57→23:27)
[2019-05-19] MEDS: ACCU-CHEK XX ×7 (01:00→20:34)
[2019-05-19] MEDS: Insulin NOVOLOG SS MILD Algorithm (NPO/TPN/ENTERAL FEEDS) SC ×6 (01:00→20:33)
[2019-05-19] MEDS: ZOLPIDEM 5 MG TAB PO ×2 (01:03→20:38)
[2019-05-19] MEDS: PANTOPRAZOLE (EC) 40 MG TAB PO (05:38)
[2019-05-19 05:58] LABS: WHITE BLOOD COUNT 18.1 10^3/ul (4.8-10.8)
[2019-05-19 05:58] LABS: ABNORMAL IP MESSAGE 1; HEMATOCRIT 27.3 % (37.0-47.0); HEMOGLOBIN 8.6 g/dl (12.0-16.0); MEAN CORPUSCULAR HGB CONC 31.5 g/dl (32.0-37.0); MEAN CORPUSCULAR VOLUME 82.5 fl (82.0-101.0); MEAN PLATELET VOLUME 9.9 fl (7.4-10.4); PLATELET COUNT 539 10^3/UL (140-415); RED BLOOD COUNT 3.31 10^6/ul (4.20-5.40); RED CELL DISTRIBUTION WIDTH 18.7 % (11.5-14.5)
[2019-05-19 06:02] LABS: ADD MAN DIFF? YES; POSITIVE DIFF @See below
[2019-05-19 06:21] LABS: PHOSPHORUS 2.2 mg/dl (2.5-4.9)
[2019-05-19 06:21] LABS: MAGNESIUM 1.5 mg/dl (1.7-2.5)
[2019-05-19 06:25] LABS: ANION GAP 5 (5-13); BLOOD UREA NITROGEN 28 mg/dl (7-20); CALCIUM 10.2 mg/dl (8.4-10.2); CARBON DIOXIDE 25 mmol/L (21-31); CHLORIDE 104 mmol/L (97-110); CREATININE 1.14 mg/dl (0.44-1.00); Estimated GFR 48 mL/min (>60); GLUCOSE 106 mg/dl (70-220); SODIUM 134 mmol/L (135-144)
[2019-05-19 07:10] LABS: PREALBUMIN 7.5 mg/dl (17.6-36.0)
[2019-05-19 07:26] LABS: ANISOCYTOSIS 1+ (0-0); BAND NEUTROPHILS #M 3.2 10^3/ul (0.0-0.6); BAND NEUTROPHILS % (M) 18 % (0-4); EOSINOPHILS % (M) 13 % (0-7); HYPOCHROMASIA 1+ (0-0); LYMPHOCYTES #M 2.1 10^3/ul (0.8-2.9); LYMPHOCYTES % (M) 12 % (15-51); MONOCYTE #M 0.5 10^3/ul (0.3-0.9); MONOCYTES % (M) 3 % (0-11); MYELOCYTES #M 0.3 10^3/ul (0.0-0.0); MYELOCYTES % (M) 2 % (0-0); PLATELET ESTIMATE INCREASED; POLYCHROMASIA 1+ (0-0); SEGMENTED NEUTROPHILS (M) % 52 % (39-77); SMUDGE%M 6 % (0-0)
[2019-05-19] MEDS: HEPARIN 5,000 UNIT/1 ML VIAL SC ×2 (08:46→20:36)
[2019-05-19] MEDS: ESCITALOPRAM 10 MG TAB PO (08:46)
[2019-05-19] MEDS: L ACIDOPHIL/B LACTIS/B LONGUM CAPSULE PO ×2 (08:46→20:34)
[2019-05-19] MEDS: AMLODIPINE 10 MG TAB PO (08:47)
[2019-05-19] MEDS: NYSTATIN 30 GM POWDER BTL TOP ×3 (08:48→20:34)
[2019-05-19] MEDS: MAGNESIUM SULFATE 2 GM/50 ML 50 ML IVPB (12:33)
[2019-05-19] MEDS: ATORVASTATIN 40 MG TAB PO (20:34)
[2019-05-20] MEDS: ACCU-CHEK XX ×6 (00:23→16:57)
[2019-05-20] MEDS: Insulin NOVOLOG SS MILD Algorithm (NPO/TPN/ENTERAL FEEDS) SC ×5 (01:00→16:57)
[2019-05-20] MEDS: PANTOPRAZOLE (EC) 40 MG TAB PO (05:05)
[2019-05-20] MEDS: METOCLOPRAMIDE 10 MG INJ IV ×3 (05:05→16:57)
[2019-05-20 06:21] LABS: ABNORMAL IP MESSAGE 1; HEMATOCRIT 28.8 % (37.0-47.0); HEMOGLOBIN 8.8 g/dl (12.0-16.0); MEAN CORPUSCULAR HEMOGLOBIN 25.6 pg (29.0-33.0); MEAN CORPUSCULAR HGB CONC 30.6 g/dl (32.0-37.0); MEAN CORPUSCULAR VOLUME 83.7 fl (82.0-101.0); MEAN PLATELET VOLUME 9.6 fl (7.4-10.4); PLATELET COUNT 588 10^3/UL (140-415); RED BLOOD COUNT 3.44 10^6/ul (4.20-5.40)
[2019-05-20 06:23] LABS: ADD MAN DIFF? YES; POSITIVE DIFF @See below
[2019-05-20 06:39] LABS: ANION GAP 6 (5-13); BLOOD UREA NITROGEN 33 mg/dl (7-20); CALCIUM 10.7 mg/dl (8.4-10.2); CARBON DIOXIDE 26 mmol/L (21-31); CHLORIDE 102 mmol/L (97-110); CREATININE 1.22 mg/dl (0.44-1.00); Estimated GFR 44 mL/min (>60); GLUCOSE 109 mg/dl (70-220); POTASSIUM 5.1 mmol/L (3.5-5.1); SODIUM 134 mmol/L (135-144)
[2019-05-20 06:42] LABS: PHOSPHORUS 2.6 mg/dl (2.5-4.9)
[2019-05-20 08:09] LABS: ANISOCYTOSIS 1+ (0-0); BAND NEUTROPHILS #M 2.2 10^3/ul (0.0-0.6); BAND NEUTROPHILS % (M) 12 % (0-4); BASOPHIL #M 0.1 10^3/ul (0.0-0.0); BASOPHILS % (M) 1 % (0-2); EOSINOPHILS % (M) 8 % (0-7); LYMPHOCYTES % (M) 16 % (15-51); METAMYELOCYTES #M 0.7 10^3/ul (0.0-0.0); METAMYELOCYTES %M 4 % (0-0); MONOCYTE #M 1.7 10^3/ul (0.3-0.9); MONOCYTES % (M) 9 % (0-11); MYELOCYTES #M 0.7 10^3/ul (0.0-0.0); MYELOCYTES % (M) 4 % (0-0); PLATELET ESTIMATE INCREASED; REACTIVE LYMPHOCYTES #M 0.1 10^3/ul (0.0-0.0); REACTIVE LYMPHOCYTES% (M) 1 % (0-0); SEGMENTED NEUTROPHILS (M) % 45 % (39-77); SMUDGE%M 8 % (0-0)
[2019-05-20] MEDS: L ACIDOPHIL/B LACTIS/B LONGUM CAPSULE PO (09:57)
[2019-05-20] MEDS: AMLODIPINE 10 MG TAB PO (09:57)
[2019-05-20] MEDS: ESCITALOPRAM 10 MG TAB PO (09:57)
[2019-05-20] MEDS: HEPARIN 5,000 UNIT/1 ML VIAL SC (09:58)
[2019-05-20] MEDS: NYSTATIN 30 GM POWDER BTL TOP ×2 (09:58→12:52)
[2019-05-20] MEDS: SCOPOLAMINE 1.5 MG PATCH TRANSDERM (14:10)
[2019-05-20] MEDS: ACETAMINOPHEN 325 MG TAB PO (16:21)
== END 2019-05-20 20:43 | disposition home health service (06) | DRG 392 ==
LOC: E/R 14:16 → PP2 18:26
PROC: 0DB68ZX Excision of Stomach, Via Natural or Artificial Opening Endoscopic, Diagnostic (ICD-10-PCS; principal; 2019-05-01 16:15)
PROC: 0D5K8ZZ Destruction of Ascending Colon, Via Natural or Artificial Opening Endoscopic (ICD-10-PCS; 2019-05-01 16:15)
PROC: 0DH63UZ Insertion of Feeding Device into Stomach, Percutaneous Approach (ICD-10-PCS; 2019-05-01 16:15)
DX: K90.49 Malabsorption due to intolerance, not elsewhere classified (principal); N39.0 Urinary tract infection, site not specified; E11.8 Type 2 diabetes mellitus with unspecified complications; E78.5 Hyperlipidemia, unspecified; I10 Essential (primary) hypertension; F32.9 Major depressive disorder, single episode, unspecified; K29.70 Gastritis, unspecified, without bleeding; D72.829 Elevated white blood cell count, unspecified; Z79.4 Long term (current) use of insulin; E66.01 Morbid (severe) obesity due to excess calories; Z68.32 Body mass index [BMI] 32.0-32.9, adult; D64.9 Anemia, unspecified; K20.9 Esophagitis, unspecified; K63.5 Polyp of colon; R19.7 Diarrhea, unspecified
CPT/HCPCS: 36415; 36600; 71045; 73562; 78264; 78806; 80048; 80053; 80069; 80076; 80200; 81001; 81003; 82803; 82962; 83036; 83690; 83735; 84100; 84134; 84145; 84478; 85025; 85610; 87040-91; 87045; 87075; 87081; 87086; 87177; 87205; 88305; 88312; 96361; 96374; 96375; 97110; 97116; 97161; 97530; 99285-25

== ENCOUNTER 2019-05-25 17:16 | Inpatient (IN) | payer MEDICARE, OTHER ==
[2019-05-25 18:01] LABS: HEMOGLOBIN 9.7 g/dl (12.0-16.0); MEAN CORPUSCULAR HEMOGLOBIN 26.1 pg (29.0-33.0); MEAN CORPUSCULAR HGB CONC 31.3 g/dl (32.0-37.0); MEAN CORPUSCULAR VOLUME 83.6 fl (82.0-101.0); MEAN PLATELET VOLUME 9.1 fl (7.4-10.4); PLATELET COUNT 742 10^3/UL (140-415); RED BLOOD COUNT 3.71 10^6/ul (4.20-5.40); RED CELL DISTRIBUTION WIDTH 18.8 % (11.5-14.5)
[2019-05-25] MEDS: LORAZEPAM 2 MG INJ IV (18:01)
[2019-05-25 18:02] LABS: ADD MAN DIFF? YES
[2019-05-25] MEDS: ONDANSETRON 4 MG INJ IV (18:09)
[2019-05-25 18:17] LABS: ALANINE AMINOTRANSFERASE 15 IU/L (13-69); ALBUMIN 3.4 g/dl (3.3-4.9); ALBUMIN/GLOBULIN RATIO 0.89; ALKALINE PHOSPHATASE 115 IU/L (42-121); ANION GAP 13 (5-13); ASPARTATE AMINO TRANSFERASE 20 IU/L (15-46); BILIRUBIN,INDIRECT 0.3 mg/dl (0-1.1); BILIRUBIN,TOTAL 0.3 mg/dl (0.2-1.3); BLOOD UREA NITROGEN 13 mg/dl (7-20); CARBON DIOXIDE 14 mmol/L (21-31); CHLORIDE 109 mmol/L (97-110); CREATININE 1.36 mg/dl (0.44-1.00); Estimated GFR 39 mL/min (>60); GLUCOSE 116 mg/dl (70-220); LIPASE 639 U/L (23-300); POTASSIUM 4.1 mmol/L (3.5-5.1); SODIUM 136 mmol/L (135-144); TOTAL PROTEIN 7.2 g/dl (6.1-8.1)
[2019-05-25] MEDS: SOD CHLORIDE 0.9% 1,000 ML IV (19:19)
[2019-05-25] MEDS ORDERED: ONDANSETRON 4 MG INJ IV (19:30)
[2019-05-25] MEDS ORDERED: ACETAMINOPHEN 325 MG TAB PO (19:30)
[2019-05-25 19:32] LABS: ANISOCYTOSIS 2+ (0-0); BASOPHIL #M 0.2 10^3/ul (0.0-0.0); BASOPHILS % (M) 1 % (0-2); BURR CELLS 2+ (0-0); EOSINOPHILS % (M) 6 % (0-7); GIANT THROMBO% (M) 1 % (0-0); HYPOCHROMASIA 1+ (0-0); LYMPHOCYTES #M 3.3 10^3/ul (0.8-2.9); LYMPHOCYTES % (M) 16 % (15-51); METAMYELOCYTES #M 0.2 10^3/ul (0.0-0.0); METAMYELOCYTES %M 1 % (0-0); MICROCYTOSIS 2+ (0-0); MONOCYTE #M 1.2 10^3/ul (0.3-0.9); MONOCYTES % (M) 6 % (0-11); OVALOCYTES 1+ (0-0); PLATELET ESTIMATE INCREASED; POIKILOCYTOSIS 1+ (0-0); POLYCHROMASIA 1+ (0-0); SEGMENTED NEUTROPHILS (M) % 70 % (39-77); SMUDGE%M 9 % (0-0)
[2019-05-25 20:44] LABS: ADD UMIC YES; UR ASCORBIC ACID NEGATIVE (NEGATIVE); UR BACTERIA FEW /HPF (NONE SEEN); UR BILIRUBIN (Dip) NEGATIVE (NEGATIVE); UR BLOOD (Dip) NEGATIVE (NEGATIVE); UR CLARITY CLOUDY (CLEAR); UR COLOR YELLOW (YELLOW); UR GLUCOSE (Dip) NEGATIVE (NEGATIVE); UR KETONES (Dip) TRACE mg/dL (NEGATIVE); UR LEUKOCYTE ESTERASE (Dip) NEGATIVE Leu/ul (NEGATIVE); UR NITRITE (Dip) NEGATIVE (NEGATIVE); UR RBC 4 /HPF (0-5); UR SQUAMOUS EPITHELIAL CELL MODERATE /HPF (FEW); UR TOTAL PROTEIN (Dip) 1+ mg/dl (NEGATIVE); UR UROBILINOGEN (Dip) NEGATIVE (NEGATIVE); UR WBC 3 /HPF (0-5)
[2019-05-25] MEDS ORDERED: ACETAMINOPHEN 650 MG SUPP PR (21:00)
[2019-05-25] MEDS ORDERED: NACL 0.9% 3 ML SYG IV (21:00)
[2019-05-25] MEDS ORDERED: ALBUTEROL/IPRATROPIUM (NEB) 3 ML AMP HHN (21:00)
[2019-05-25] MEDS ORDERED: morphine 2 MG INJ IV (21:00)
[2019-05-25] MEDS: DEXTROSE 5%-0.45% NACL 1,000 ML IV (22:15)
[2019-05-25] MEDS: FAMOTIDINE 20 MG INJ IV (22:15)
[2019-05-25] MEDS: PIPER-TAZO 2.25 GM (PMX) 50 ML IVPB (23:06)
[2019-05-26] MEDS: ZOLPIDEM 5 MG TAB PO (00:30)
[2019-05-26] MEDS: INSULIN ASPART [NOVOLOG] 3 ML PEN SC ×6 (01:00→20:42)
[2019-05-26] MEDS: PIPER-TAZO 2.25 GM (PMX) 50 ML IVPB ×2 (05:19→12:10)
[2019-05-26 05:41] LABS: ADD MAN DIFF? NO
[2019-05-26] MEDS: DEXTROSE 5%-0.45% NACL 1,000 ML IV ×2 (05:49→20:34)
[2019-05-26 05:51] LABS: BASOPHIL # 0.1 10^3/ul (0.0-0.1); BASOPHILS % 0.7 % (0.0-2.0); EOSINOPHILS # 0.7 10^3/ul (0.0-0.5); EOSINOPHILS % 3.5 % (0.0-7.0); HEMATOCRIT 31.4 % (37.0-47.0); HEMOGLOBIN 9.5 g/dl (12.0-16.0); LYMPHOCYTES # 2.6 10^3/ul (0.8-2.9); LYMPHOCYTES % 13.4 % (15.0-51.0); MEAN CORPUSCULAR HEMOGLOBIN 25.8 pg (29.0-33.0); MEAN CORPUSCULAR HGB CONC 30.3 g/dl (32.0-37.0); MEAN CORPUSCULAR VOLUME 85.3 fl (82.0-101.0); MEAN PLATELET VOLUME 9.7 fl (7.4-10.4); MONOCYTE # 1.5 10^3/ul (0.3-0.9); MONOCYTES % 7.6 % (0.0-11.0); NEUTROPHIL # 13.9 10^3/ul (1.6-7.5); NEUTROPHILS % 70.9 % (39.0-77.0); PLATELET COUNT 731 10^3/UL (140-415); RED BLOOD COUNT 3.68 10^6/ul (4.20-5.40); RED CELL DISTRIBUTION WIDTH 19.2 % (11.5-14.5)
[2019-05-26 05:51] LABS: WHITE BLOOD COUNT 19.5 10^3/ul (4.8-10.8)
[2019-05-26 06:19] LABS: ALANINE AMINOTRANSFERASE 12 IU/L (13-69); ALBUMIN 3.1 g/dl (3.3-4.9); ALBUMIN/GLOBULIN RATIO 0.86; ALKALINE PHOSPHATASE 99 IU/L (42-121); ANION GAP 10 (5-13); ASPARTATE AMINO TRANSFERASE 20 IU/L (15-46); BILIRUBIN,INDIRECT 0.3 mg/dl (0-1.1); BILIRUBIN,TOTAL 0.3 mg/dl (0.2-1.3); BLOOD UREA NITROGEN 11 mg/dl (7-20); CALCIUM 10.8 mg/dl (8.4-10.2); CARBON DIOXIDE 18 mmol/L (21-31); CHLORIDE 112 mmol/L (97-110); CREATININE 1.21 mg/dl (0.44-1.00); Estimated GFR 45 mL/min (>60); GLUCOSE 118 mg/dl (70-220); LIPASE 662 U/L (23-300); MAGNESIUM 1.8 mg/dl (1.7-2.5); PHOSPHORUS 4.3 mg/dl (2.5-4.9); SODIUM 140 mmol/L (135-144); TOTAL PROTEIN 6.7 g/dl (6.1-8.1)
[2019-05-26] MEDS: FAMOTIDINE 20 MG INJ IV ×2 (08:15→20:33)
[2019-05-26 10:53] LABS: TRIGLYCERIDES 159 mg/dl (0-149)
[2019-05-26] MEDS: SOD CHLORIDE 0.9% 1,000 ML IV (12:07)
[2019-05-26] MEDS ORDERED: metroNIDAZOLE 500 MG/NS (PMX) 100 ML IVPB (14:00)
[2019-05-26] MEDS ORDERED: hydrALAzine 20 MG INJ IV (14:30)
[2019-05-26] MEDS ORDERED: ACETAMINOPHEN 1000MG/100ML IV 100 ML IVPB (15:00)
[2019-05-26] MEDS: VANCOMYCIN HCL 250 MG/5ML POSYG PO (16:35)
[2019-05-26] MEDS: NYSTATIN 30 GM POWDER BTL TOP (20:35)
[2019-05-26] MEDS ORDERED: ZOLPIDEM 5 MG TAB PO (21:00)
[2019-05-27] MEDS: VANCOMYCIN HCL 250 MG/5ML POSYG PO ×4 (00:13→17:05)
[2019-05-27] MEDS: INSULIN ASPART [NOVOLOG] 3 ML PEN SC ×6 (01:00→20:39)
[2019-05-27] MEDS: DEXTROSE 5%-0.45% NACL 1,000 ML IV ×4 (02:00→15:44)
[2019-05-27 05:17] LABS: ADD MAN DIFF? NO
[2019-05-27 05:19] LABS: WHITE BLOOD COUNT 16.9 10^3/ul (4.8-10.8)
[2019-05-27 05:19] LABS: BASOPHIL # 0.1 10^3/ul (0.0-0.1); BASOPHILS % 0.6 % (0.0-2.0); EOSINOPHILS # 0.9 10^3/ul (0.0-0.5); EOSINOPHILS % 5.1 % (0.0-7.0); HEMATOCRIT 28.4 % (37.0-47.0); HEMOGLOBIN 8.6 g/dl (12.0-16.0); LYMPHOCYTES # 2.5 10^3/ul (0.8-2.9); LYMPHOCYTES % 14.7 % (15.0-51.0); MEAN CORPUSCULAR HEMOGLOBIN 25.8 pg (29.0-33.0); MEAN CORPUSCULAR HGB CONC 30.3 g/dl (32.0-37.0); MEAN CORPUSCULAR VOLUME 85.3 fl (82.0-101.0); MEAN PLATELET VOLUME 9.5 fl (7.4-10.4); MONOCYTE # 1.1 10^3/ul (0.3-0.9); MONOCYTES % 6.7 % (0.0-11.0); NEUTROPHIL # 11.8 10^3/ul (1.6-7.5); NEUTROPHILS % 69.9 % (39.0-77.0); RED BLOOD COUNT 3.33 10^6/ul (4.20-5.40); RED CELL DISTRIBUTION WIDTH 19.2 % (11.5-14.5)
[2019-05-27 05:32] LABS: PLATELET COUNT 664 10^3/UL (140-415)
[2019-05-27 05:46] LABS: LIPASE 524 U/L (23-300)
[2019-05-27 05:46] LABS: AMYLASE 122 U/L (11-123)
[2019-05-27 05:54] LABS: ANION GAP 8 (5-13); BLOOD UREA NITROGEN 7 mg/dl (7-20); CALCIUM 10.4 mg/dl (8.4-10.2); CARBON DIOXIDE 18 mmol/L (21-31); CHLORIDE 115 mmol/L (97-110); CREATININE 1.06 mg/dl (0.44-1.00); Estimated GFR 52 mL/min (>60); GLUCOSE 104 mg/dl (70-220); MAGNESIUM 1.6 mg/dl (1.7-2.5); PHOSPHORUS 3.5 mg/dl (2.5-4.9); POTASSIUM 3.9 mmol/L (3.5-5.1); SODIUM 141 mmol/L (135-144)
[2019-05-27] MEDS: NYSTATIN 30 GM POWDER BTL TOP ×2 (08:08→20:39)
[2019-05-27] MEDS: FAMOTIDINE 20 MG INJ IV ×2 (08:08→20:30)
[2019-05-27] MEDS: MAGNESIUM SULFATE 2 GM/50 ML 50 ML IVPB (11:02)
[2019-05-27] MEDS: ONDANSETRON 4 MG INJ IV (15:56)
[2019-05-27] MEDS: ACETAMINOPHEN 650MG/20.3ML CUP PO (21:41)
[2019-05-28] MEDS: INSULIN ASPART [NOVOLOG] 3 ML PEN SC ×6 (00:38→21:00)
[2019-05-28] MEDS: VANCOMYCIN HCL 250 MG/5ML POSYG PO ×5 (00:38→23:31)
[2019-05-28] MEDS: DEXTROSE 5%-0.45% NACL 1,000 ML IV ×2 (04:10→08:38)
[2019-05-28 06:06] LABS: ADD MAN DIFF? NO
[2019-05-28 06:15] LABS: BASOPHIL # 0.1 10^3/ul (0.0-0.1); BASOPHILS % 0.7 % (0.0-2.0); EOSINOPHILS # 1.1 10^3/ul (0.0-0.5); EOSINOPHILS % 6.6 % (0.0-7.0); HEMATOCRIT 28.7 % (37.0-47.0); HEMOGLOBIN 8.8 g/dl (12.0-16.0); LYMPHOCYTES # 2.5 10^3/ul (0.8-2.9); LYMPHOCYTES % 15.7 % (15.0-51.0); MEAN CORPUSCULAR HEMOGLOBIN 26.1 pg (29.0-33.0); MEAN CORPUSCULAR HGB CONC 30.7 g/dl (32.0-37.0); MEAN CORPUSCULAR VOLUME 85.2 fl (82.0-101.0); MEAN PLATELET VOLUME 9.8 fl (7.4-10.4); MONOCYTES % 6.4 % (0.0-11.0); NEUTROPHILS % 68.5 % (39.0-77.0); PLATELET COUNT 624 10^3/UL (140-415); RED BLOOD COUNT 3.37 10^6/ul (4.20-5.40); RED CELL DISTRIBUTION WIDTH 19.1 % (11.5-14.5)
[2019-05-28 06:27] LABS: ANION GAP 8 (5-13); BLOOD UREA NITROGEN 9 mg/dl (7-20); CALCIUM 10.4 mg/dl (8.4-10.2); CARBON DIOXIDE 18 mmol/L (21-31); CHLORIDE 113 mmol/L (97-110); CREATININE 0.93 mg/dl (0.44-1.00); Estimated GFR > 60 mL/min (>60); GLUCOSE 120 mg/dl (70-220); MAGNESIUM 1.9 mg/dl (1.7-2.5); PHOSPHORUS 2.9 mg/dl (2.5-4.9); SODIUM 139 mmol/L (135-144)
[2019-05-28] MEDS: FAMOTIDINE 20 MG INJ IV ×2 (08:32→21:13)
[2019-05-28] MEDS: ONDANSETRON 4 MG INJ IV (08:32)
[2019-05-28] MEDS: NYSTATIN 30 GM POWDER BTL TOP ×2 (08:35→21:14)
[2019-05-28] MEDS: SCOPOLAMINE 1.5 MG PATCH TRANSDERM (13:39)
[2019-05-28] MEDS: ACETAMINOPHEN 650MG/20.3ML CUP PO (20:37)
[2019-05-29] MEDS: INSULIN ASPART [NOVOLOG] 3 ML PEN SC ×6 (01:00→22:02)
[2019-05-29 05:34] LABS: ADD MAN DIFF? NO
[2019-05-29 05:37] LABS: WHITE BLOOD COUNT 15.3 10^3/ul (4.8-10.8)
[2019-05-29 05:37] LABS: BASOPHIL # 0.1 10^3/ul (0.0-0.1); BASOPHILS % 0.6 % (0.0-2.0); EOSINOPHILS # 1.3 10^3/ul (0.0-0.5); EOSINOPHILS % 8.2 % (0.0-7.0); HEMOGLOBIN 8.8 g/dl (12.0-16.0); LYMPHOCYTES # 2.5 10^3/ul (0.8-2.9); LYMPHOCYTES % 16.2 % (15.0-51.0); MEAN CORPUSCULAR HEMOGLOBIN 26.3 pg (29.0-33.0); MEAN CORPUSCULAR HGB CONC 31.4 g/dl (32.0-37.0); MEAN CORPUSCULAR VOLUME 83.6 fl (82.0-101.0); MEAN PLATELET VOLUME 9.8 fl (7.4-10.4); MONOCYTE # 0.9 10^3/ul (0.3-0.9); MONOCYTES % 5.9 % (0.0-11.0); NEUTROPHIL # 10.2 10^3/ul (1.6-7.5); NEUTROPHILS % 66.7 % (39.0-77.0); PLATELET COUNT 644 10^3/UL (140-415); RED BLOOD COUNT 3.35 10^6/ul (4.20-5.40); RED CELL DISTRIBUTION WIDTH 19.3 % (11.5-14.5)
[2019-05-29] MEDS: VANCOMYCIN HCL 250 MG/5ML POSYG PO ×3 (05:45→17:11)
[2019-05-29 06:00] LABS: ANION GAP 7 (5-13); BLOOD UREA NITROGEN 17 mg/dl (7-20); CALCIUM 10.9 mg/dl (8.4-10.2); CARBON DIOXIDE 20 mmol/L (21-31); CHLORIDE 112 mmol/L (97-110); CREATININE 0.91 mg/dl (0.44-1.00); Estimated GFR > 60 mL/min (>60); GLUCOSE 103 mg/dl (70-220); MAGNESIUM 1.7 mg/dl (1.7-2.5); PHOSPHORUS 2.7 mg/dl (2.5-4.9); POTASSIUM 4.2 mmol/L (3.5-5.1); SODIUM 139 mmol/L (135-144)
[2019-05-29] MEDS: FAMOTIDINE 20 MG INJ IV (08:10)
[2019-05-29] MEDS: NYSTATIN 30 GM POWDER BTL TOP ×2 (08:11→20:41)
[2019-05-29] MEDS ORDERED: ASPIRIN 81 MG TAB (08:32)
[2019-05-29] MEDS: ACETAMINOPHEN 650MG/20.3ML CUP PO (08:39)
[2019-05-29] MEDS: FAMOTIDINE 20 MG TAB PO (20:41)
[2019-05-30] MEDS: VANCOMYCIN HCL 250 MG/5ML POSYG PO ×4 (00:23→17:23)
[2019-05-30] MEDS: INSULIN ASPART [NOVOLOG] 3 ML PEN SC ×6 (01:00→20:48)
[2019-05-30 06:03] LABS: ADD MAN DIFF? NO
[2019-05-30 06:07] LABS: WHITE BLOOD COUNT 14.8 10^3/ul (4.8-10.8)
[2019-05-30 06:07] LABS: BASOPHIL # 0.1 10^3/ul (0.0-0.1); BASOPHILS % 0.6 % (0.0-2.0); EOSINOPHILS # 1.3 10^3/ul (0.0-0.5); EOSINOPHILS % 8.8 % (0.0-7.0); HEMATOCRIT 33.6 % (37.0-47.0); HEMOGLOBIN 10.1 g/dl (12.0-16.0); LYMPHOCYTES # 2.9 10^3/ul (0.8-2.9); LYMPHOCYTES % 19.4 % (15.0-51.0); MEAN CORPUSCULAR HEMOGLOBIN 25.6 pg (29.0-33.0); MEAN CORPUSCULAR HGB CONC 30.1 g/dl (32.0-37.0); MEAN CORPUSCULAR VOLUME 85.3 fl (82.0-101.0); NEUTROPHIL # 9.1 10^3/ul (1.6-7.5); NEUTROPHILS % 61.1 % (39.0-77.0); PLATELET COUNT 696 10^3/UL (140-415); RED BLOOD COUNT 3.94 10^6/ul (4.20-5.40); RED CELL DISTRIBUTION WIDTH 19.9 % (11.5-14.5)
[2019-05-30 06:59] LABS: ANION GAP 8 (5-13); BLOOD UREA NITROGEN 23 mg/dl (7-20); CALCIUM 12.1 mg/dl (8.4-10.2); CARBON DIOXIDE 21 mmol/L (21-31); CHLORIDE 111 mmol/L (97-110); CREATININE 0.97 mg/dl (0.44-1.00); Estimated GFR 58 mL/min (>60); GLUCOSE 107 mg/dl (70-220); MAGNESIUM 1.7 mg/dl (1.7-2.5); PHOSPHORUS 3.3 mg/dl (2.5-4.9); POTASSIUM 4.4 mmol/L (3.5-5.1); SODIUM 140 mmol/L (135-144)
[2019-05-30] MEDS: FAMOTIDINE 20 MG TAB PO ×2 (08:03→20:43)
[2019-05-30] MEDS: NYSTATIN 30 GM POWDER BTL TOP ×2 (08:04→20:43)
[2019-05-30] MEDS: ONDANSETRON 4 MG INJ IV ×2 (11:15→17:22)
[2019-05-30] MEDS: SOD CHLORIDE 0.9% 1,000 ML IV (12:30)
[2019-05-30] MEDS: ACETAMINOPHEN 650MG/20.3ML CUP PO (13:34)
[2019-05-30] MEDS ORDERED: DEXTROSE 50% 50 ML SYRINGE IV ×2 (18:30)
[2019-05-30] MEDS ORDERED: GLUCAGON 1 MG INJ IM (18:30)
[2019-05-30] MEDS ORDERED: GLUCOSE GEL 15 GRAM TUBE BUCCAL (18:30)
[2019-05-30] MEDS ORDERED: GLUCOSE GEL 15 GRAM TUBE PO ×2 (18:30)
[2019-05-31] MEDS: INSULIN ASPART [NOVOLOG] 3 ML PEN SC ×6 (00:17→21:00)
[2019-05-31] MEDS: VANCOMYCIN HCL 250 MG/5ML POSYG PO ×4 (00:17→17:20)
[2019-05-31] MEDS: SOD CHLORIDE 0.9% 1,000 ML IV (04:03)
[2019-05-31 05:17] LABS: ADD MAN DIFF? NO
[2019-05-31 05:36] LABS: WHITE BLOOD COUNT 15.5 10^3/ul (4.8-10.8)
[2019-05-31 05:36] LABS: BASOPHIL # 0.1 10^3/ul (0.0-0.1); BASOPHILS % 0.6 % (0.0-2.0); EOSINOPHILS # 1.3 10^3/ul (0.0-0.5); EOSINOPHILS % 8.4 % (0.0-7.0); HEMATOCRIT 29.9 % (37.0-47.0); HEMOGLOBIN 9.2 g/dl (12.0-16.0); LYMPHOCYTES # 2.8 10^3/ul (0.8-2.9); LYMPHOCYTES % 17.8 % (15.0-51.0); MEAN CORPUSCULAR HEMOGLOBIN 25.9 pg (29.0-33.0); MEAN CORPUSCULAR HGB CONC 30.8 g/dl (32.0-37.0); MEAN CORPUSCULAR VOLUME 84.2 fl (82.0-101.0); MONOCYTE # 1.3 10^3/ul (0.3-0.9); MONOCYTES % 8.5 % (0.0-11.0); NEUTROPHIL # 9.6 10^3/ul (1.6-7.5); NEUTROPHILS % 62.1 % (39.0-77.0); NUCLEATED RED BLOOD CELLS% 0.1 /100WBC (0.0-0.0); PLATELET COUNT 564 10^3/UL (140-415); RED BLOOD COUNT 3.55 10^6/ul (4.20-5.40); RED CELL DISTRIBUTION WIDTH 19.5 % (11.5-14.5)
[2019-05-31 05:45] LABS: ANION GAP 6 (5-13); BLOOD UREA NITROGEN 27 mg/dl (7-20); CALCIUM 12.3 mg/dl (8.4-10.2); CARBON DIOXIDE 21 mmol/L (21-31); CHLORIDE 109 mmol/L (97-110); CREATININE 0.99 mg/dl (0.44-1.00); Estimated GFR 56 mL/min (>60); GLUCOSE 109 mg/dl (70-220); MAGNESIUM 1.6 mg/dl (1.7-2.5); PHOSPHORUS 3.2 mg/dl (2.5-4.9); POTASSIUM 4.4 mmol/L (3.5-5.1); SODIUM 136 mmol/L (135-144)
[2019-05-31] MEDS: FAMOTIDINE 20 MG TAB PO ×2 (08:13→20:41)
[2019-05-31] MEDS: NYSTATIN 30 GM POWDER BTL TOP ×2 (08:14→20:43)
[2019-05-31 12:36] LABS: IONIZED CALCIUM 1.7 mmol/L (1.1-1.4)
[2019-05-31] MEDS: MAGNESIUM SULFATE 2 GM/50 ML 50 ML IVPB (13:01)
[2019-05-31] MEDS: SCOPOLAMINE 1.5 MG PATCH TRANSDERM (13:01)
[2019-05-31] MEDS: ACETAMINOPHEN 650MG/20.3ML CUP PO (20:43)
[2019-06-01] MEDS: VANCOMYCIN HCL 250 MG/5ML POSYG PO ×5 (00:51→23:38)
[2019-06-01] MEDS: INSULIN ASPART [NOVOLOG] 3 ML PEN SC ×6 (01:00→20:41)
[2019-06-01 05:44] LABS: ADD MAN DIFF? NO
[2019-06-01 05:54] LABS: BASOPHIL # 0.1 10^3/ul (0.0-0.1); BASOPHILS % 0.6 % (0.0-2.0); EOSINOPHILS # 1.2 10^3/ul (0.0-0.5); EOSINOPHILS % 8.2 % (0.0-7.0); HEMATOCRIT 30.2 % (37.0-47.0); HEMOGLOBIN 9.4 g/dl (12.0-16.0); LYMPHOCYTES # 2.7 10^3/ul (0.8-2.9); LYMPHOCYTES % 18.4 % (15.0-51.0); MEAN CORPUSCULAR HGB CONC 31.1 g/dl (32.0-37.0); MEAN CORPUSCULAR VOLUME 83.7 fl (82.0-101.0); MEAN PLATELET VOLUME 9.8 fl (7.4-10.4); MONOCYTE # 1.3 10^3/ul (0.3-0.9); MONOCYTES % 8.4 % (0.0-11.0); NEUTROPHIL # 9.2 10^3/ul (1.6-7.5); NEUTROPHILS % 62.2 % (39.0-77.0); NUCLEATED RED BLOOD CELLS% 0.1 /100WBC (0.0-0.0); PLATELET COUNT 590 10^3/UL (140-415); RED BLOOD COUNT 3.61 10^6/ul (4.20-5.40); RED CELL DISTRIBUTION WIDTH 19.6 % (11.5-14.5)
[2019-06-01 05:54] LABS: WHITE BLOOD COUNT 14.9 10^3/ul (4.8-10.8)
[2019-06-01 06:34] LABS: ANION GAP 5 (5-13); BLOOD UREA NITROGEN 27 mg/dl (7-20); CALCIUM 12.4 mg/dl (8.4-10.2); CARBON DIOXIDE 25 mmol/L (21-31); CHLORIDE 107 mmol/L (97-110); CREATININE 1.01 mg/dl (0.44-1.00); Estimated GFR 55 mL/min (>60); GLUCOSE 123 mg/dl (70-220); MAGNESIUM 2.1 mg/dl (1.7-2.5); PHOSPHORUS 3.4 mg/dl (2.5-4.9); POTASSIUM 4.6 mmol/L (3.5-5.1); SODIUM 137 mmol/L (135-144)
[2019-06-01 07:01] LABS: URIC ACID 6.4 mg/dl (3.1-7.9)
[2019-06-01] MEDS: FAMOTIDINE 20 MG TAB PO ×2 (08:23→20:42)
[2019-06-01] MEDS: NYSTATIN 30 GM POWDER BTL TOP ×2 (08:58→20:43)
[2019-06-01] MEDS: ONDANSETRON 4 MG INJ IV (10:33)
[2019-06-02] MEDS ORDERED: INSULIN ASPART [NOVOLOG] 3 ML PEN SC
[2019-06-02] MEDS: INSULIN ASPART [NOVOLOG] 3 ML PEN SC ×4 (03:00→17:07)
[2019-06-02 05:24] LABS: ADD MAN DIFF? NO
[2019-06-02 05:26] LABS: WHITE BLOOD COUNT 15.9 10^3/ul (4.8-10.8)
[2019-06-02 05:26] LABS: BASOPHIL # 0.1 10^3/ul (0.0-0.1); BASOPHILS % 0.4 % (0.0-2.0); EOSINOPHILS # 1.1 10^3/ul (0.0-0.5); EOSINOPHILS % 7.2 % (0.0-7.0); HEMATOCRIT 30.4 % (37.0-47.0); HEMOGLOBIN 9.2 g/dl (12.0-16.0); LYMPHOCYTES # 2.8 10^3/ul (0.8-2.9); LYMPHOCYTES % 17.6 % (15.0-51.0); MEAN CORPUSCULAR HGB CONC 30.3 g/dl (32.0-37.0); MEAN CORPUSCULAR VOLUME 85.9 fl (82.0-101.0); MEAN PLATELET VOLUME 10.4 fl (7.4-10.4); MONOCYTE # 1.5 10^3/ul (0.3-0.9); MONOCYTES % 9.2 % (0.0-11.0); NEUTROPHIL # 10.2 10^3/ul (1.6-7.5); NEUTROPHILS % 63.9 % (39.0-77.0); PLATELET COUNT 558 10^3/UL (140-415); RED BLOOD COUNT 3.54 10^6/ul (4.20-5.40); RED CELL DISTRIBUTION WIDTH 20.1 % (11.5-14.5)
[2019-06-02 05:53] LABS: ALBUMIN 2.9 g/dl (3.3-4.9); ANION GAP 8 (5-13); BLOOD UREA NITROGEN 31 mg/dl (7-20); CALCIUM 12.4 mg/dl (8.4-10.2); CARBON DIOXIDE 23 mmol/L (21-31); CHLORIDE 103 mmol/L (97-110); CREATININE 1.07 mg/dl (0.44-1.00); GLUCOSE 115 mg/dl (70-220); MAGNESIUM 1.8 mg/dl (1.7-2.5); PHOSPHORUS 3.8 mg/dl (2.5-4.9); POTASSIUM 4.4 mmol/L (3.5-5.1); SODIUM 134 mmol/L (135-144)
[2019-06-02] MEDS: VANCOMYCIN HCL 250 MG/5ML POSYG PO ×3 (05:58→17:07)
[2019-06-02 08:06] LABS: PROTEIN, TOTAL 5.4 g/dL (6.1-8.1)
[2019-06-02] MEDS: FAMOTIDINE 20 MG TAB PO ×2 (08:30→20:44)
[2019-06-02] MEDS: NYSTATIN 30 GM POWDER BTL TOP ×2 (08:30→20:44)
[2019-06-02 15:13] LABS: ALBUMIN 2.4 g/dL (3.8-4.8); ALPHA-1-GLOBULINS 0.4 g/dL (0.2-0.3); ALPHA-2-GLOBULINS 1.1 g/dL (0.5-0.9); BETA 2 GLOBULINS 0.3 g/dL (0.2-0.5); BETA GLOBULINS 0.4 g/dL (0.4-0.6); CREATININE, RANDOM URINE 32 mg/dL (20-275); GAMMA GLOBULINS 0.9 g/dL (0.8-1.7); PROTEIN/CREATININE RATIO 1000 mg/g creat (21-161)
[2019-06-03] MEDS: VANCOMYCIN HCL 250 MG/5ML POSYG PO ×5 (00:30→23:07)
[2019-06-03 05:53] LABS: ADD MAN DIFF? NO
[2019-06-03 05:58] LABS: BASOPHIL # 0.1 10^3/ul (0.0-0.1); BASOPHILS % 0.4 % (0.0-2.0); EOSINOPHILS # 1.1 10^3/ul (0.0-0.5); EOSINOPHILS % 7.1 % (0.0-7.0); HEMATOCRIT 30.4 % (37.0-47.0); HEMOGLOBIN 9.2 g/dl (12.0-16.0); LYMPHOCYTES # 2.7 10^3/ul (0.8-2.9); LYMPHOCYTES % 16.6 % (15.0-51.0); MEAN CORPUSCULAR HEMOGLOBIN 26.1 pg (29.0-33.0); MEAN CORPUSCULAR HGB CONC 30.3 g/dl (32.0-37.0); MEAN CORPUSCULAR VOLUME 86.4 fl (82.0-101.0); MONOCYTE # 1.4 10^3/ul (0.3-0.9); MONOCYTES % 8.8 % (0.0-11.0); NEUTROPHIL # 10.4 10^3/ul (1.6-7.5); NEUTROPHILS % 64.8 % (39.0-77.0); PLATELET COUNT 519 10^3/UL (140-415); RED BLOOD COUNT 3.52 10^6/ul (4.20-5.40); RED CELL DISTRIBUTION WIDTH 19.9 % (11.5-14.5)
[2019-06-03] MEDS: INSULIN ASPART [NOVOLOG] 3 ML PEN SC ×5 (06:00→23:11)
[2019-06-03 06:24] LABS: ALBUMIN 2.7 g/dl (3.3-4.9); ANION GAP 9 (5-13); BLOOD UREA NITROGEN 35 mg/dl (7-20); CALCIUM 12.2 mg/dl (8.4-10.2); CARBON DIOXIDE 24 mmol/L (21-31); CHLORIDE 101 mmol/L (97-110); CREATININE 1.03 mg/dl (0.44-1.00); GLUCOSE 113 mg/dl (70-220); MAGNESIUM 1.7 mg/dl (1.7-2.5); PHOSPHORUS 4.1 mg/dl (2.5-4.9); POTASSIUM 4.6 mmol/L (3.5-5.1); SODIUM 134 mmol/L (135-144)
[2019-06-03] MEDS: FAMOTIDINE 20 MG TAB PO ×2 (08:12→20:31)
[2019-06-03] MEDS: NYSTATIN 30 GM POWDER BTL TOP ×2 (08:13→20:31)
[2019-06-03] MEDS: ONDANSETRON 4 MG INJ IV (08:26)
[2019-06-03] MEDS ORDERED: CHOLECALCIFEROL 2,000 UNIT CAP PO (09:00)
[2019-06-03] MEDS: MAGNESIUM SULFATE 2 GM/50 ML 50 ML IVPB (09:16)
[2019-06-03] MEDS: ERGOCALCIFEROL 50,000 UNIT CAP PO (09:40)
[2019-06-03] MEDS: ACETAMINOPHEN 650MG/20.3ML CUP PO (12:26)
[2019-06-03] MEDS: DICLOFENAC SODIUM 1% GEL 100 GM TUBE TP ×3 (14:54→20:31)
[2019-06-03] MEDS: LIDOCAINE/MYLANTA 40 ML BTL PO (14:54)
[2019-06-04] MEDS: VANCOMYCIN HCL 250 MG/5ML POSYG PO ×4 (05:29→23:12)
[2019-06-04] MEDS: INSULIN ASPART [NOVOLOG] 3 ML PEN SC ×4 (05:32→23:16)
[2019-06-04 05:44] LABS: ADD MAN DIFF? NO
[2019-06-04 05:51] LABS: BASOPHIL # 0.1 10^3/ul (0.0-0.1); BASOPHILS % 0.5 % (0.0-2.0); EOSINOPHILS # 1.1 10^3/ul (0.0-0.5); EOSINOPHILS % 6.7 % (0.0-7.0); HEMATOCRIT 31.1 % (37.0-47.0); HEMOGLOBIN 9.6 g/dl (12.0-16.0); LYMPHOCYTES # 2.7 10^3/ul (0.8-2.9); LYMPHOCYTES % 15.8 % (15.0-51.0); MEAN CORPUSCULAR HEMOGLOBIN 25.9 pg (29.0-33.0); MEAN CORPUSCULAR HGB CONC 30.9 g/dl (32.0-37.0); MEAN CORPUSCULAR VOLUME 84.1 fl (82.0-101.0); MEAN PLATELET VOLUME 10.9 fl (7.4-10.4); MONOCYTE # 1.4 10^3/ul (0.3-0.9); NEUTROPHIL # 11.4 10^3/ul (1.6-7.5); NEUTROPHILS % 67.1 % (39.0-77.0); PLATELET COUNT 515 10^3/UL (140-415); RED CELL DISTRIBUTION WIDTH 19.8 % (11.5-14.5)
[2019-06-04 06:02] LABS: POSITIVE DIFF @See below
[2019-06-04 06:04] LABS: ALBUMIN 3.5 g/dl (3.3-4.9); ANION GAP 10 (5-13); BLOOD UREA NITROGEN 35 mg/dl (7-20); CALCIUM 12.7 mg/dl (8.4-10.2); CARBON DIOXIDE 26 mmol/L (21-31); CHLORIDE 99 mmol/L (97-110); CREATININE 1.21 mg/dl (0.44-1.00); GLUCOSE 110 mg/dl (70-220); PHOSPHORUS 4.2 mg/dl (2.5-4.9); POTASSIUM 4.1 mmol/L (3.5-5.1); SODIUM 135 mmol/L (135-144)
[2019-06-04] MEDS: FAMOTIDINE 20 MG TAB PO ×2 (07:59→20:12)
[2019-06-04] MEDS: DICLOFENAC SODIUM 1% GEL 100 GM TUBE TP ×4 (08:00→20:12)
[2019-06-04] MEDS: NYSTATIN 30 GM POWDER BTL TOP ×2 (08:00→20:12)
[2019-06-04] MEDS: PAMIDRONATE 30 MG in SOD CHLORIDE 0.9% 500 ML IV (12:18)
[2019-06-04] MEDS: ACETAMINOPHEN 650MG/20.3ML CUP PO (15:38)
[2019-06-05] MEDS: VANCOMYCIN HCL 250 MG/5ML POSYG PO ×4 (05:48→23:49)
[2019-06-05] MEDS: INSULIN ASPART [NOVOLOG] 3 ML PEN SC ×4 (05:51→23:54)
[2019-06-05 08:27] LABS: ADD MAN DIFF? NO
[2019-06-05 08:30] LABS: BASOPHILS % 0.3 % (0.0-2.0); EOSINOPHILS # 1.1 10^3/ul (0.0-0.5); EOSINOPHILS % 7.4 % (0.0-7.0); HEMATOCRIT 29.1 % (37.0-47.0); HEMOGLOBIN 8.6 g/dl (12.0-16.0); LYMPHOCYTES # 1.5 10^3/ul (0.8-2.9); LYMPHOCYTES % 10.3 % (15.0-51.0); MEAN CORPUSCULAR HEMOGLOBIN 25.4 pg (29.0-33.0); MEAN CORPUSCULAR HGB CONC 29.6 g/dl (32.0-37.0); MEAN CORPUSCULAR VOLUME 86.1 fl (82.0-101.0); MEAN PLATELET VOLUME 9.6 fl (7.4-10.4); MONOCYTE # 1.2 10^3/ul (0.3-0.9); MONOCYTES % 7.8 % (0.0-11.0); NEUTROPHIL # 10.7 10^3/ul (1.6-7.5); NEUTROPHILS % 72.6 % (39.0-77.0); PLATELET COUNT 444 10^3/UL (140-415); RED BLOOD COUNT 3.38 10^6/ul (4.20-5.40); RED CELL DISTRIBUTION WIDTH 19.8 % (11.5-14.5)
[2019-06-05 08:30] LABS: WHITE BLOOD COUNT 14.7 10^3/ul (4.8-10.8)
[2019-06-05] MEDS: FAMOTIDINE 20 MG TAB PO ×2 (08:32→20:20)
[2019-06-05] MEDS: NYSTATIN 30 GM POWDER BTL TOP ×2 (08:33→20:20)
[2019-06-05] MEDS: DICLOFENAC SODIUM 1% GEL 100 GM TUBE TP ×4 (08:33→20:20)
[2019-06-05 08:55] LABS: ALBUMIN 2.9 g/dl (3.3-4.9); ANION GAP 7 (5-13); BLOOD UREA NITROGEN 34 mg/dl (7-20); CALCIUM 11.9 mg/dl (8.4-10.2); CARBON DIOXIDE 27 mmol/L (21-31); CHLORIDE 101 mmol/L (97-110); CREATININE 1.16 mg/dl (0.44-1.00); GLUCOSE 139 mg/dl (70-220); MAGNESIUM 1.8 mg/dl (1.7-2.5); PHOSPHORUS 3.9 mg/dl (2.5-4.9); SODIUM 135 mmol/L (135-144)
[2019-06-05] MEDS: METOCLOPRAMIDE 10 MG INJ IV (12:09)
[2019-06-05] MEDS: ERTAPENEM SODIUM 1 GM in SOD CHLORIDE 0.9% 100 ML IVPB (12:45)
[2019-06-06] MEDS: VANCOMYCIN HCL 250 MG/5ML POSYG PO ×4 (05:43→23:33)
[2019-06-06] MEDS: INSULIN ASPART [NOVOLOG] 3 ML PEN SC ×4 (05:45→23:40)
[2019-06-06 05:49] LABS: ADD MAN DIFF? NO
[2019-06-06 05:57] LABS: BASOPHIL # 0.1 10^3/ul (0.0-0.1); BASOPHILS % 0.5 % (0.0-2.0); EOSINOPHILS # 1.1 10^3/ul (0.0-0.5); EOSINOPHILS % 6.7 % (0.0-7.0); HEMATOCRIT 27.5 % (37.0-47.0); HEMOGLOBIN 8.5 g/dl (12.0-16.0); LYMPHOCYTES % 12.6 % (15.0-51.0); MEAN CORPUSCULAR HEMOGLOBIN 26.5 pg (29.0-33.0); MEAN CORPUSCULAR HGB CONC 30.9 g/dl (32.0-37.0); MEAN CORPUSCULAR VOLUME 85.7 fl (82.0-101.0); MEAN PLATELET VOLUME 10.4 fl (7.4-10.4); MONOCYTE # 1.2 10^3/ul (0.3-0.9); MONOCYTES % 7.5 % (0.0-11.0); NEUTROPHIL # 11.4 10^3/ul (1.6-7.5); NEUTROPHILS % 70.8 % (39.0-77.0); PLATELET COUNT 429 10^3/UL (140-415); RED BLOOD COUNT 3.21 10^6/ul (4.20-5.40); RED CELL DISTRIBUTION WIDTH 19.4 % (11.5-14.5)
[2019-06-06 05:57] LABS: WHITE BLOOD COUNT 16.2 10^3/ul (4.8-10.8)
[2019-06-06 06:20] LABS: ALBUMIN 2.8 g/dl (3.3-4.9); ANION GAP 7 (5-13); BLOOD UREA NITROGEN 33 mg/dl (7-20); CALCIUM 11.1 mg/dl (8.4-10.2); CARBON DIOXIDE 26 mmol/L (21-31); CHLORIDE 103 mmol/L (97-110); CREATININE 1.14 mg/dl (0.44-1.00); GLUCOSE 150 mg/dl (70-220); MAGNESIUM 1.8 mg/dl (1.7-2.5); PHOSPHORUS 3.5 mg/dl (2.5-4.9); POTASSIUM 4.2 mmol/L (3.5-5.1); SODIUM 136 mmol/L (135-144)
[2019-06-06] MEDS: NYSTATIN 30 GM POWDER BTL TOP ×2 (07:56→20:27)
[2019-06-06] MEDS: FAMOTIDINE 20 MG TAB PO ×2 (07:56→20:23)
[2019-06-06] MEDS: DICLOFENAC SODIUM 1% GEL 100 GM TUBE TP ×4 (07:56→20:27)
[2019-06-06] MEDS: ACETAMINOPHEN 650MG/20.3ML CUP PO (09:21)
[2019-06-06] MEDS: ERTAPENEM SODIUM 1 GM in SOD CHLORIDE 0.9% 100 ML IVPB (11:08)
[2019-06-06] MEDS: FLUCONAZOLE 100 MG TAB PO (12:12)
[2019-06-06] MEDS: CIPROFLOXACIN 500 MG TAB PO (17:09)
[2019-06-07 05:52] LABS: ADD MAN DIFF? NO
[2019-06-07 06:01] LABS: BASOPHIL # 0.1 10^3/ul (0.0-0.1); BASOPHILS % 0.4 % (0.0-2.0); EOSINOPHILS # 1.2 10^3/ul (0.0-0.5); EOSINOPHILS % 6.9 % (0.0-7.0); HEMATOCRIT 27.8 % (37.0-47.0); HEMOGLOBIN 8.5 g/dl (12.0-16.0); MEAN CORPUSCULAR HEMOGLOBIN 26.3 pg (29.0-33.0); MEAN CORPUSCULAR HGB CONC 30.6 g/dl (32.0-37.0); MEAN CORPUSCULAR VOLUME 86.1 fl (82.0-101.0); MEAN PLATELET VOLUME 10.4 fl (7.4-10.4); MONOCYTE # 1.2 10^3/ul (0.3-0.9); MONOCYTES % 7.1 % (0.0-11.0); NEUTROPHIL # 11.8 10^3/ul (1.6-7.5); NEUTROPHILS % 71.2 % (39.0-77.0); PLATELET COUNT 448 10^3/UL (140-415); RED BLOOD COUNT 3.23 10^6/ul (4.20-5.40); RED CELL DISTRIBUTION WIDTH 19.4 % (11.5-14.5)
[2019-06-07 06:01] LABS: WHITE BLOOD COUNT 16.6 10^3/ul (4.8-10.8)
[2019-06-07] MEDS: VANCOMYCIN HCL 250 MG/5ML POSYG PO ×3 (06:10→17:29)
[2019-06-07] MEDS: CIPROFLOXACIN 500 MG TAB PO ×2 (06:10→17:30)
[2019-06-07] MEDS: INSULIN ASPART [NOVOLOG] 3 ML PEN SC ×3 (06:16→17:39)
[2019-06-07 06:28] LABS: ALBUMIN 2.9 g/dl (3.3-4.9); ANION GAP 7 (5-13); BLOOD UREA NITROGEN 27 mg/dl (7-20); CALCIUM 10.3 mg/dl (8.4-10.2); CARBON DIOXIDE 24 mmol/L (21-31); CHLORIDE 101 mmol/L (97-110); CREATININE 1.12 mg/dl (0.44-1.00); GLUCOSE 163 mg/dl (70-220); MAGNESIUM 1.7 mg/dl (1.7-2.5); PHOSPHORUS 3.3 mg/dl (2.5-4.9); POTASSIUM 4.3 mmol/L (3.5-5.1); SODIUM 132 mmol/L (135-144)
[2019-06-07] MEDS: DICLOFENAC SODIUM 1% GEL 100 GM TUBE TP ×4 (08:53→21:00)
[2019-06-07] MEDS: FAMOTIDINE 20 MG TAB PO ×2 (08:53→20:12)
[2019-06-07] MEDS: NYSTATIN 30 GM POWDER BTL TOP ×2 (08:54→21:00)
[2019-06-07] MEDS: SOD CHLORIDE 0.9% 500 ML IV (11:28)
[2019-06-07] MEDS: MAGNESIUM SULFATE 2 GM/50 ML 50 ML IVPB (12:55)
== END 2019-06-07 21:55 | disposition home health service (06) | DRG 871 ==
LOC: E/R 17:16 → 5EC 19:22
DX: A41.4 Sepsis due to anaerobes (principal); K85.90 Acute pancreatitis without necrosis or infection, unspecified; A04.72 Enterocolitis due to Clostridium difficile, not specified as recurrent; N17.9 Acute kidney failure, unspecified; N30.00 Acute cystitis without hematuria; E11.8 Type 2 diabetes mellitus with unspecified complications; D47.3 Essential (hemorrhagic) thrombocythemia; E86.0 Dehydration; E83.52 Hypercalcemia; E78.5 Hyperlipidemia, unspecified; E66.9 Obesity, unspecified; F32.9 Major depressive disorder, single episode, unspecified; F06.30 Mood disorder due to known physiological condition, unspecified; I10 Essential (primary) hypertension; K76.0 Fatty (change of) liver, not elsewhere classified; M19.90 Unspecified osteoarthritis, unspecified site; N26.1 Atrophy of kidney (terminal); R13.10 Dysphagia, unspecified; Z68.36 Body mass index [BMI] 36.0-36.9, adult; Z93.1 Gastrostomy status; Z79.4 Long term (current) use of insulin
CPT/HCPCS: 36415; 71045; 74176; 76536; 80048; 80053; 80069; 81001; 82150; 82306; 82330; 82570; 82652; 82962; 83690; 83735; 83970; 84100; 84155; 84156; 84165; 84166; 84478; 84560; 85025; 87040-91; 87045; 87075; 87081; 87086; 87177; 96374; 96375; 97110; 97161; 97530; 99285-25; J2430